=== PATIENT | female | born 1950 | race Caucasian/White ===

== ENCOUNTER 2020-08-29 10:00 | Outpatient (REF) | payer MEDICARE, BC, SELFPAY ==
--- NOTE | 2020-08-29 | US_ITS ---
EXAMINATION: US RETROPERITONEAL LIMITED (RENAL ONLY) CLINICAL INFORMATION: Renal stone. COMPARISON: KUBs dated 02/22/2020 and 02/10/2020. CT abdomen and pelvis with contrast dated 01/12/2020. MRI abdomen without contrast dated 02/27/2008. Ultrasound abdomen complete dated 02/06/2008. TECHNIQUE: Real-time imaging of the kidneys. FINDINGS: RIGHT KIDNEY: Surgically absent. LEFT KIDNEY: 13.1 x 6.2 x 6.1 cm (SAG x AP x TRV). The kidney is normal in size, contour, and echogenicity. Renal cortical thickness is normal. No hydronephrosis. Midpole cyst with tiny thin internal septation measures 1.8 x 2.5 x 2.0 cm. Upper pole cyst is simple and measures 2.7 x 4.0 x 4.2 cm. Echogenic focus adjacent to one of the cysts measures 0.2 x 0.4 x 0.4 cm. US/US renal BI IMPRESSION: 1. Right nephrectomy. No suspicious soft tissue masses at the nephrectomy bed. 2. Multiple left renal cysts. There is an echogenic focus at the border of the larger of the 2 cysts which may represent a nonobstructing renal calculus versus wall calcification of the cyst. Continued sonographic surveillance is recommended. No suspicious vascular/solid regions are seen otherwise associated with the cyst.
== END 2020-08-29 10:01 | disposition home or self-care (01) ==
LOC: HO.US 10:00
PROVIDERS: PCP Family Medicine; Visit Provider Urology
DX: N20.0 Calculus of kidney (principal)
CPT/HCPCS: 76775

== ENCOUNTER 2020-09-19 08:03 | Outpatient (REF) | payer MEDICARE, BC, SELFPAY ==
[2020-09-19 12:04] LABS: Estimated Average Glucose 131 mg/dL; Hemoglobin A1c % 6.2 %
[2020-09-19 12:19] LABS: TSH reflex Free T4 0.96 mIU/mL (0.32-4.0)
[2020-09-19 12:29] LABS: Creatinine Urine 73.99 mg/dL; Microalbum/Creatinine Ratio Ur 14.8 ug/mg cr
[2020-09-19 12:32] LABS: Alanine Aminotransferase 31 U/L (0-31); Albumin Level 4.2 g/dL (3.5-5.0); Alkaline Phosphatase 105 U/L (39-117); Anion Gap 13 (12-20); Aspartate Amino Transferase 17 U/L (5-31); Bilirubin Total 0.7 mg/dL (0.0-1.0); Blood Urea Nitrogen 14 mg/dL (9-16); Calcium 9.6 mg/dL (8.4-10.2); Carbon Dioxide 27 mmol/L (22-29); Chloride 106 mmol/L (96-108); Cholesterol 214 mg/dL; Estimated Glomerular Filt Rate > 60; Glucose Fasting 123 mg/dL (60-99); HDL Cholesterol 59 mg/dL; LDL Cholesterol Calculated 125 mg/dl; Potassium 4.4 mmol/l (3.3-5.1); Sodium 142 mmol/L (135-145); Triglycerides 151 mg/dL
== END 2020-09-19 08:04 | disposition home or self-care (01) ==
LOC: HO.WFDLDS 08:03
PROVIDERS: Visit Provider Family Medicine
DX: E11.9 Type 2 diabetes mellitus without complications (principal); I10 Essential (primary) hypertension; E78.5 Hyperlipidemia, unspecified; Z00.00 Encounter for general adult medical examination without abnormal findings
CPT/HCPCS: 80053; 80061; 82043; 83036; 84443

== ENCOUNTER → 2020-11-08 13:21 | Outpatient (BNVA) | payer MEDICARE, BC, SELFPAY | PROVIDERS: PCP Family Medicine; Visit Provider Internal Medicine Pulmonary Disease | DX: K21.9 Gastro-esophageal reflux disease without esophagitis (principal); J45.909 Unspecified asthma, uncomplicated; R05 Cough | CPT/HCPCS: 99202 ==

== ENCOUNTER → 2020-11-22 13:28 | Outpatient (BNVA) | payer MEDICARE, BC, SELFPAY | PROVIDERS: PCP Family Medicine; Visit Provider Internal Medicine Pulmonary Disease | DX: J45.909 Unspecified asthma, uncomplicated (principal); R05 Cough; K21.9 Gastro-esophageal reflux disease without esophagitis | CPT/HCPCS: Q3014 ==

== ENCOUNTER 2020-12-01 08:09 | Outpatient (REF) | payer MEDICARE, BC, SELFPAY ==
--- NOTE | ~2020-12-01 | XR_ITS ---
EXAMINATION: XR CHEST CLINICAL INFORMATION: Cough COMPARISON: Chest radiographs 01/12/2020, 09/11/2019 TECHNIQUE: 2 views of the chest were obtained. FINDINGS: The lungs are clear. There is no airspace consolidation or groundglass opacity. The heart is normal in size. The hilar and mediastinal contours are normal. Vascularity is unremarkable. The costophrenic sulci are clear. Bony structures are unremarkable. There are surgical clips right upper abdomen likely from prior cholecystectomy. XR/XR chest 2V IMPRESSION: Unremarkable examination.
== END 2020-12-01 08:10 | disposition home or self-care (01) ==
LOC: HO.XRAY 08:09
PROVIDERS: PCP Family Medicine; Visit Provider Internal Medicine Pulmonary Disease
DX: R05 Cough (principal)
CPT/HCPCS: 71046

== ENCOUNTER → 2020-12-21 13:28 | Outpatient (BNVA) | payer MEDICARE, BC, SELFPAY | PROVIDERS: PCP Family Medicine; Visit Provider Internal Medicine Pulmonary Disease | DX: J45.909 Unspecified asthma, uncomplicated (principal); K21.9 Gastro-esophageal reflux disease without esophagitis | CPT/HCPCS: 99212 ==

== ENCOUNTER 2021-01-10 07:54 | Outpatient (REF) | payer MEDICARE, BC, SELFPAY ==
--- NOTE | ~2021-01-10 | MM_ITS ---
EXAMINATION: MM SCREENING DIGITAL BREAST TOMOSYNTHESIS, BILATERAL CLINICAL INFORMATION: Screening. Asymptomatic. The lifetime risk of breast cancer based on the Tyrer-Cuzick Model is 3%. COMPARISON: Mammography: 07/20/2019, 04/10/2018, 02/23/2017 TECHNIQUE: Digital breast tomosynthesis is performed in both the craniocaudal and mediolateral oblique views along with computer-aided detection (CAD). Synthesized 2D images are generated from the tomosynthesis. FINDINGS: There are scattered areas of fibroglandular density (ACR BI-RADS breast composition Category b). There are no significant masses, abnormal calcifications, or other abnormalities. Parenchymal pattern is similar to prior studies. The axilla and skin contours are unremarkable. MM/MM tomosynthesis screening BI IMPRESSION: No mammographic evidence of malignancy. ASSESSMENT: BI-RADS 1: Negative RECOMMENDATION: Routine annual mammography screening. This patient's information was entered into a reminder system with a target due date for their next mammogram.
== END 2021-01-10 07:55 | disposition home or self-care (01) ==
LOC: HO.MAMMO 07:54
PROVIDERS: Visit Provider Family Medicine
DX: Z12.31 Encounter for screening mammogram for malignant neoplasm of breast (principal)
CPT/HCPCS: 77063; 77067

== ENCOUNTER 2021-06-19 07:39 | Outpatient (REF) | payer MEDICARE, BC, SELFPAY ==
[2021-06-19 11:07] LABS: Cholesterol 189 mg/dL; HDL Cholesterol 63 mg/dL; LDL Cholesterol Calculated 105 mg/dl; Triglycerides 107 mg/dL
== END 2021-06-19 07:40 | disposition home or self-care (01) ==
LOC: HO.WFDLDS 07:39
PROVIDERS: Visit Provider Family Medicine
DX: E78.5 Hyperlipidemia, unspecified (principal)
CPT/HCPCS: 36415; 80061

== ENCOUNTER 2021-06-20 13:08 | Outpatient (REF) | payer MEDICARE, BC, SELFPAY ==
[2021-06-20 14:22] LABS: Glucose Urine UA NEG (NEG); Leukocyte Esterase Urine 2+ (NEG); Nitrite Urine NEG (NEG); Specific Gravity - Urine 1.025 (1.005-1.025); Urine Blood NEG (NEG); Urine Ketones NEG (NEG); Urine Protein NEG (NEG-TRACE)
[2021-06-20 14:24] LABS: Appearance Urine HAZY; Color Urine YELLOW
[2021-06-20 15:06] LABS: RBC Urine 0-2 /HPF (0)
[2021-06-20 15:07] LABS: Bacteria Urine TRACE /LPF; Mucus Urine 1+ /LPF; Squamous Epithelial Cell Urine 2+ /LPF
== END 2021-06-20 13:09 | disposition home or self-care (01) ==
LOC: HO.LAB 13:08
PROVIDERS: PCP Family Medicine; Visit Provider Urology
DX: N20.0 Calculus of kidney (principal)
CPT/HCPCS: 81001; 87086

== ENCOUNTER 2021-07-17 14:00 | Outpatient (REF) | payer MEDICARE, BC, SELFPAY | END 2021-07-17 14:01 | disposition home or self-care (01) | LOC: HO.LAB 14:00 | PROVIDERS: PCP Family Medicine | DX: N20.0 Calculus of kidney (principal); N39.0 Urinary tract infection, site not specified | CPT/HCPCS: 87086; 99212 ==

== ENCOUNTER → 2021-07-26 11:12 | Outpatient (BNVA) | payer MEDICARE, BC, SELFPAY | PROVIDERS: PCP Family Medicine; Visit Provider Internal Medicine Pulmonary Disease | DX: J45.909 Unspecified asthma, uncomplicated (principal); K21.9 Gastro-esophageal reflux disease without esophagitis | CPT/HCPCS: 99212 ==

== ENCOUNTER 2021-10-10 07:04 | Outpatient (REF) | payer MEDICARE, BC, SELFPAY ==
[2021-10-10 11:57] LABS: Appearance Urine HAZY; Color Urine YELLOW; Glucose Urine UA NEG (NEG); Leukocyte Esterase Urine 1+ (NEG); Nitrite Urine NEG (NEG); PH 5.5 (5.0-8.0); Specific Gravity - Urine 1.025 (1.005-1.025); Urine Blood NEG (NEG); Urine Ketones NEG (NEG); Urine Protein NEG (NEG-TRACE)
[2021-10-10 12:15] LABS: Alanine Aminotransferase 21 U/L (0-31); Alkaline Phosphatase 124 U/L (39-117); Anion Gap 12 (12-20); Aspartate Amino Transferase 15 U/L (5-31); Bilirubin Total 0.5 mg/dL (0.0-1.0); Blood Urea Nitrogen 15 mg/dL (9-16); Calcium 9.9 mg/dL (8.4-10.2); Carbon Dioxide 26 mmol/L (22-29); Chloride 109 mmol/L (96-108); Cholesterol 208 mg/dL; Estimated Glomerular Filt Rate > 60; Glucose Fasting 129 mg/dL (60-99); HDL Cholesterol 56 mg/dL; LDL Cholesterol Calculated 126 mg/dl; Potassium 4.4 mmol/L (3.3-5.1); Sodium 143 mmol/L (135-145); Total Protein 6.5 g/dL (6.5-8.0); Triglycerides 132 mg/dL
[2021-10-10 12:16] LABS: Creatinine Urine 103.17 mg/dL; Microalbum/Creatinine Ratio Ur 14.5 ug/mg cr
[2021-10-10 15:00] LABS: Bacteria Urine 1+ /LPF; Mucus Urine 1+ /LPF; RBC Urine 0-2 /HPF (0); Squamous Epithelial Cell Urine 2+ /LPF
== END 2021-10-10 07:05 | disposition home or self-care (01) ==
LOC: HO.WFDLDS 07:04
PROVIDERS: Visit Provider Family Medicine
DX: Z00.00 Encounter for general adult medical examination without abnormal findings (principal); I10 Essential (primary) hypertension
CPT/HCPCS: 36415; 80053; 80061; 81001; 81003; 82043; 84443

== ENCOUNTER → 2021-10-25 10:01 | Outpatient (BNVA) | payer MEDICARE, BC, SELFPAY | PROVIDERS: PCP Internal Medicine Endocrinology, Diabetes & Metabolism | DX: N39.0 Urinary tract infection, site not specified (principal) | CPT/HCPCS: 99212 ==

== ENCOUNTER 2021-11-23 14:07 | Outpatient (REF) | payer MEDICARE, BC, SELFPAY ==
--- NOTE | ~2021-11-23 | US_ITS ---
EXAMINATION: US RETROPERITONEAL LIMITED (RENAL ONLY) CLINICAL INFORMATION: Calculus of kidney. COMPARISON: Renal ultrasound 08/29/2020. XR abdomen KUB 02/22/2020 and 02/10/2020. CT abdomen and pelvis 01/12/2020. TECHNIQUE: Real-time imaging of the kidneys. FINDINGS: RIGHT KIDNEY: Surgically absent. Hypoechoic structure in the renal fossa measures up to 2 cm. This is adjacent to the liver and may correspond to the previously seen right adrenal adenoma. LEFT KIDNEY: 13.2 x 5.9 x 6.6 cm (SAG x AP x TRV). The kidney is normal in size, contour, and echogenicity. Renal cortical thickness is normal. No hydronephrosis. Multiple calcifications are seen throughout the kidney. Midpole cyst measures 2.6 cm. This has a thin internal septation. This is likely a Bosniak 2. There is an adjacent simple cyst which is exophytic measuring 4.8 cm. No follow-up imaging recommended. There are 3 mid pole calculi measuring 0.5 cm. US/US renal BI IMPRESSION: There are 3 left midpole nonobstructing 0.5 cm renal calculi identified. Left renal cysts as detailed above.
== END 2021-11-23 14:08 | disposition home or self-care (01) ==
LOC: HO.US 14:07
PROVIDERS: PCP Family Medicine
DX: N20.0 Calculus of kidney (principal)
CPT/HCPCS: 76775

== ENCOUNTER → 2022-01-23 09:57 | Outpatient (BNVA) | payer MEDICARE, BC, SELFPAY | PROVIDERS: PCP Family Medicine; Visit Provider Internal Medicine Pulmonary Disease | DX: J45.909 Unspecified asthma, uncomplicated (principal); G47.33 Obstructive sleep apnea (adult) (pediatric); R05.9 Cough, unspecified; K21.9 Gastro-esophageal reflux disease without esophagitis | CPT/HCPCS: 99212 ==

== ENCOUNTER → 2022-01-30 08:32 | Outpatient (BNVA) | payer MEDICARE, BC, SELFPAY | PROVIDERS: PCP Family Medicine | DX: Z13.89 Encounter for screening for other disorder (principal) | CPT/HCPCS: Q3014 ==

== ENCOUNTER 2022-02-12 07:23 | Outpatient (REF) | payer MEDICARE, BC, SELFPAY ==
--- NOTE | ~2022-02-12 | MM_ITS ---
EXAMINATION: MM SCREENING DIGITAL BREAST TOMOSYNTHESIS, BILATERAL CLINICAL INFORMATION: Screening. Asymptomatic. The lifetime risk of breast cancer based on the Tyrer-Cuzick Model is 3%. COMPARISON: Mammography: 01/10/2021, 07/20/2019, 04/10/2018 TECHNIQUE: Digital breast tomosynthesis is performed in both the craniocaudal and mediolateral oblique views along with computer-aided detection (CAD). Synthesized 2D images are generated from the tomosynthesis. FINDINGS: There are scattered areas of fibroglandular density (ACR BI-RADS breast composition Category b). There are no significant masses, abnormal calcifications, or other abnormalities. Parenchymal pattern is similar to prior studies. No developing density. No architectural abnormality. No significant change. MM/MM tomosynthesis screening BI IMPRESSION: No mammographic evidence of malignancy. ASSESSMENT: BI-RADS 1: Negative RECOMMENDATION: Routine annual mammography screening. This patient's information was entered into a reminder system with a target due date for their next mammogram.
== END 2022-02-12 07:24 | disposition home or self-care (01) ==
LOC: HO.MAMMO 07:23
PROVIDERS: Visit Provider Family Medicine
DX: Z12.31 Encounter for screening mammogram for malignant neoplasm of breast (principal)
CPT/HCPCS: 77063; 77067

== ENCOUNTER 2022-02-13 08:32 | Outpatient (REF) | payer MEDICARE, BC, SELFPAY ==
[2022-02-13 11:57] LABS: Appearance Urine HAZY; Color Urine YELLOW; Glucose Urine UA NEG (NEG); Leukocyte Esterase Urine 2+ (NEG); Nitrite Urine NEG (NEG); PH 6.5 (5.0-8.0); Specific Gravity - Urine 1.015 (1.005-1.025); Urine Blood NEG (NEG); Urine Ketones NEG (NEG); Urine Protein NEG (NEG-TRACE)
[2022-02-13 12:08] LABS: Alanine Aminotransferase 25 U/L (0-31); Alkaline Phosphatase 128 U/L (39-117); Anion Gap 9 (12-20); Aspartate Amino Transferase 18 U/L (5-31); Bilirubin Total 0.5 mg/dL (0.0-1.0); Blood Urea Nitrogen 16 mg/dL (9-16); Calcium 9.9 mg/dL (8.4-10.2); Carbon Dioxide 29 mmol/L (22-29); Chloride 108 mmol/L (96-108); Cholesterol 197 mg/dL; Estimated Glomerular Filt Rate > 60; Glucose Fasting 151 mg/dL (60-99); HDL Cholesterol 60 mg/dL; LDL Cholesterol Calculated 112 mg/dl; Potassium 4.4 mmol/L (3.3-5.1); Sodium 142 mmol/L (135-145); Total Protein 6.8 g/dL (6.5-8.0); Triglycerides 125 mg/dL
[2022-02-13 12:14] LABS: Estimated Average Glucose 137 mg/dL; Hemoglobin A1c % 6.4 %
[2022-02-13 12:26] LABS: Creatinine Urine 42.24 mg/dL; Microalbum/Creatinine Ratio Ur 44.9 ug/mg cr
[2022-02-13 12:33] LABS: TSH reflex Free T4 1.33 uIU/mL (0.32-4.0)
[2022-02-13 13:17] LABS: Bacteria Urine 4+ /LPF; Squamous Epithelial Cell Urine 1+ /LPF
[2022-02-13 13:18] LABS: RBC Urine 0 /HPF (0); WBC Clumps Urine NOTED
== END 2022-02-13 08:33 | disposition home or self-care (01) ==
LOC: HO.WFDLDS 08:32
PROVIDERS: Visit Provider Family Medicine
DX: Z00.00 Encounter for general adult medical examination without abnormal findings (principal); I10 Essential (primary) hypertension; R73.01 Impaired fasting glucose
CPT/HCPCS: 36415; 80053; 80061; 81001; 81003; 82043; 83036; 84443

== ENCOUNTER → 2022-02-15 09:51 | Outpatient (REF) | payer MEDICARE, BC, SELFPAY | LOC: HO.SL 09:51 | PROVIDERS: PCP Family Medicine; Visit Provider Internal Medicine Pulmonary Disease | DX: G47.33 Obstructive sleep apnea (adult) (pediatric) (principal) | CPT/HCPCS: 95806 ==

== ENCOUNTER 2022-05-11 07:05 | Outpatient (REF) | payer MEDICARE, BC, SELFPAY ==
[2022-05-11 12:10] LABS: Appearance Urine HAZY; Color Urine YELLOW; Glucose Urine UA NEG (NEG); Leukocyte Esterase Urine 3+ (NEG); Nitrite Urine POS (NEG); Urine Blood TRACE (NEG); Urine Ketones NEG (NEG); Urine Protein NEG (NEG-TRACE)
[2022-05-11 12:27] LABS: Cholesterol 188 mg/dL; HDL Cholesterol 52 mg/dL; LDL Cholesterol Calculated 109 mg/dl; Triglycerides 137 mg/dL
[2022-05-11 13:10] LABS: Bacteria Urine 4+ /LPF; RBC Urine 0-2 /HPF (0); Renal Epithelial Cells Urine 1+ /LPF; Squamous Epithelial Cell Urine 1+ /LPF; WBC Urine 30-49 /HPF (0-4)
== END 2022-05-11 07:06 | disposition home or self-care (01) ==
LOC: HO.WFDLDS 07:05
PROVIDERS: Visit Provider Family Medicine
DX: E78.5 Hyperlipidemia, unspecified (principal)
CPT/HCPCS: 36415; 80061; 81001; 81003

== ENCOUNTER 2022-05-31 11:16 | Outpatient (REF) | payer MEDICARE, BC, SELFPAY ==
[2022-05-31 12:43] LABS: Appearance Urine CLEAR; Color Urine YELLOW; Glucose Urine UA NEG (NEG); Leukocyte Esterase Urine 1+ (NEG); Nitrite Urine NEG (NEG); Specific Gravity - Urine 1.025 (1.005-1.025); Urine Blood NEG (NEG); Urine Ketones NEG (NEG); Urine Protein NEG (NEG-TRACE)
[2022-05-31 12:56] LABS: Squamous Epithelial Cell Urine 2+ /LPF
[2022-05-31 12:57] LABS: Bacteria Urine 1+ /LPF; RBC Urine 0 /HPF (0); WBC Urine 0-2 /HPF (0-4)
== END 2022-05-31 11:17 | disposition home or self-care (01) ==
LOC: HO.LAB 11:16
PROVIDERS: PCP Family Medicine; Visit Provider Urology
DX: N39.0 Urinary tract infection, site not specified (principal)
CPT/HCPCS: 81001; 87086

== ENCOUNTER 2022-07-09 12:43 | Outpatient (REF) | payer MEDICARE, BC, SELFPAY ==
--- NOTE | ~2022-07-09 | US_ITS ---
EXAMINATION: US RETROPERITONEAL LIMITED (RENAL ONLY) CLINICAL INFORMATION: Cyst of kidney, acquired. COMPARISON: Renal ultrasound 11/23/2021 and 08/29/2020. X-ray KUB 02/22/2020 and 02/10/2020. CT abdomen and pelvis 01/12/2020. TECHNIQUE: Real-time imaging of the kidneys. FINDINGS: RIGHT KIDNEY: Surgically absent. There is a hypoechoic structure in the right renal fossa, likely scar measuring 1.2 x 1.2 x 1.6 cm. LEFT KIDNEY: 13.0 x 6.7 x 7.8 cm (SAG x AP x TRV). The kidney is normal in size, contour, and echogenicity. Renal cortical thickness is normal. No hydronephrosis. There is an anechoic cyst mid pole with septation measuring 2.7 x 2.6 x 2.1 cm. There is an anechoic cyst mid/lower pole measuring 4.9 x 3.7 x 4.6 cm and a cyst in the lower pole measuring 1.0 x 0.7 x 1.0 cm. There are echogenic stones in the mid pole measuring 0.5 x 0.3 x 0.5 cm and 0.3 x 0.2 x 0.4 cm. No caliectasis seen. US/US renal BI IMPRESSION: There are 2 echogenic nonobstructive stones in mid pole of left kidney, simple and complex cyst with septation lower and mid pole left kidney respectively. The right kidney has been surgically removed with a small likely scar measuring 1.6 cm.
== END 2022-07-09 12:44 | disposition home or self-care (01) ==
LOC: HO.US 12:43
DX: N28.1 Cyst of kidney, acquired (principal); N20.0 Calculus of kidney
CPT/HCPCS: 76775

== ENCOUNTER → 2022-07-26 08:44 | Outpatient (BNVA) | payer MEDICARE, BC, SELFPAY | PROVIDERS: PCP Family Medicine; Visit Provider Internal Medicine Pulmonary Disease | DX: J45.909 Unspecified asthma, uncomplicated (principal); K21.9 Gastro-esophageal reflux disease without esophagitis; G47.33 Obstructive sleep apnea (adult) (pediatric); R05.9 Cough, unspecified | CPT/HCPCS: 99212 ==

== ENCOUNTER → 2022-08-15 11:15 | Outpatient (BNVA) | payer MEDICARE, BC, SELFPAY | PROVIDERS: PCP Family Medicine; Visit Provider Urology | DX: N20.0 Calculus of kidney (principal); N28.1 Cyst of kidney, acquired; Z90.5 Acquired absence of kidney | CPT/HCPCS: 51798; 99212 ==

== ENCOUNTER 2022-08-22 11:04 | Outpatient (REF) | payer MEDICARE, BC, SELFPAY ==
--- NOTE | ~2022-08-22 | CT_ITS ---
EXAMINATION: CT ABDOMEN AND PELVIS WITHOUT CONTRAST CLINICAL INFORMATION: Calculus of kidney. COMPARISON: 07/09/2022 ultrasound abdomen. TECHNIQUE: Multidetector volumetric imaging was performed from the superior aspect of the liver through the pubic symphysis. Sagittal and coronal reformatted images were obtained on the technologist's workstation. This CT examination was performed using dose optimization techniques as appropriate, variously including the following: *Automated exposure control *Adjustment of mA and/or kV according to patient size (this includes techniques or standardized protocols for targeted exams where dose is matched to indication/reason for exam; i.e. extremities or head) *Use of iterative reconstruction technique DLP: 445 mGy-cm FINDINGS: LUNG BASES: Minimal atelectatic changes seen in the right middle lobe. The lung bases are clear. The heart size is normal. LIVER, GALLBLADDER, AND BILIARY TREE: The liver is normal in size, shape, and attenuation. No focal hepatic lesion or biliary ductal dilatation is present. The gallbladder has been surgically removed. PANCREAS: Unremarkable. SPLEEN: Unremarkable. ADRENAL GLANDS: There are bilateral adrenal lesions. The left adrenal lesion measures 1.22 x 0.9 cm and the right adrenal lesion measures 1.8 x 1.3 cm both measuring minus Hounsfield units. KIDNEYS AND URETERS: The left kidney is normal in size, shape, and attenuation. No hydronephrosis, hydroureter, or calculi seen. No perinephric stranding. There is 4.6 x 4.6 cm exophytic cyst with peripheral wall calcification suggestive of complex cyst in midpole left kidney. The right kidney is unremarkable. BLADDER: Unremarkable. GASTROINTESTINAL TRACT: There is diffuse colonic diverticulosis without diverticulitis. There is scattered stool and gas seen in colon without distention. Appendix is normal caliber. The small bowel loops are normal caliber. ABDOMINAL WALL: A small umbilical hernia containing fat is noted. LYMPH NODES: Normal. VASCULAR: No evidence of aneurysm. There is mild atherosclerotic calcification of abdominal aorta. PELVIC VISCERA: Unremarkable. OSSEOUS STRUCTURES: No aggressive lytic or sclerotic process seen. CT/CT abdomen pelvis wo IV con IMPRESSION: 1. No radiopaque urolith or hydroureteronephrosis. 2. Complex cyst midpole left kidney. 3. Diffuse colonic diverticulosis without diverticulitis. 4. 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 5. The left adrenal lesion measures 1.22 x 0.9 cm and the right adrenal lesion measures 1.8 x 1.3 cm both measuring minus Hounsfield units. Fleischner guidelines were followed.
== END 2022-08-22 11:05 | disposition home or self-care (01) ==
LOC: HO.CT 11:04
PROVIDERS: PCP Family Medicine; Visit Provider Urology
DX: N20.0 Calculus of kidney (principal); N28.1 Cyst of kidney, acquired; Z95.0 Presence of cardiac pacemaker
CPT/HCPCS: 74176

== ENCOUNTER → 2022-09-10 09:37 | Outpatient (BNVA) | payer MEDICARE, BC, SELFPAY | PROVIDERS: PCP Family Medicine; Visit Provider Urology | DX: N28.1 Cyst of kidney, acquired (principal); Z90.5 Acquired absence of kidney; Z87.442 Personal history of urinary calculi | CPT/HCPCS: 51798; 99212 ==

== ENCOUNTER 2022-11-28 07:19 | Outpatient (REF) | payer MEDICARE, BC, SELFPAY ==
[2022-11-28 12:01] LABS: Alanine Aminotransferase 27 U/L (0-31); Albumin Level 4.3 g/dL (3.5-5.0); Alkaline Phosphatase 96 U/L (39-117); Anion Gap 16 (12-20); Aspartate Amino Transferase 19 U/L (5-31); Bilirubin Total 0.8 mg/dL (0.0-1.0); Blood Urea Nitrogen 16 mg/dL (9-16); Calcium 9.8 mg/dL (8.4-10.2); Carbon Dioxide 20 mmol/L (22-29); Chloride 110 mmol/L (96-108); Cholesterol 170 mg/dL; Estimated Glomerular Filt Rate > 60; Glucose Random 125 mg/dL (60-115); HDL Cholesterol 45 mg/dL; LDL Cholesterol Calculated 106 mg/dl; Potassium 4.2 mmol/L (3.3-5.1); Sodium 142 mmol/L (135-145); Total Protein 6.8 g/dL (6.5-8.0); Triglycerides 97 mg/dL
== END 2022-11-28 07:20 | disposition home or self-care (01) ==
LOC: HO.WFDLDS 07:19
PROVIDERS: Visit Provider Family Medicine
DX: Z00.00 Encounter for general adult medical examination without abnormal findings (principal); E78.5 Hyperlipidemia, unspecified
CPT/HCPCS: 36415; 80053; 80061

== ENCOUNTER → 2023-01-24 09:31 | Outpatient (BNVA) | payer MEDICARE, BC, SELFPAY | PROVIDERS: PCP Family Medicine; Visit Provider Urology | DX: N28.1 Cyst of kidney, acquired (principal); Z90.5 Acquired absence of kidney; Z87.442 Personal history of urinary calculi | CPT/HCPCS: 51798; 99212 ==

== ENCOUNTER 2023-02-21 07:09 | Outpatient (REF) | payer MEDICARE, BC, SELFPAY ==
[2023-02-21 11:12] LABS: MANUAL DIFF FLAG NO
[2023-02-21 11:24] LABS: Appearance Urine Clear; Color Urine Yellow; Glucose Urine UA Negative (Negative); Leukocyte Esterase Urine Moderate (2+) (Negative); Nitrite Urine Positive (Negative); UMIC TRIGGER UA YES; Urine Blood Negative (Negative); Urine Ketones Negative (Negative); Urine Protein Negative (Neg-Trace)
[2023-02-21 11:28] LABS: Bacteria Urine 4+ (None Seen); Hyaline Casts Urine 0-2 /LPF (0-2); RBC Urine 0-2 /HPF (0-2)
[2023-02-21 11:36] LABS: Basophils Percent Auto 0.7 % (0-2); Eosinophils Absolute Auto 0.1 X10*3/uL (0.0-0.4); Eosinophils Percent Auto 2.6 % (0-4); Hematocrit 43.6 % (37.0-47.0); Hemoglobin 14.5 g/dl (12.0-16.0); Imm Gran Abs Auto 0.01 X10*3/uL (0.00-0.03); Imm Gran Pct Auto 0.2 % (0.0-0.4); Lymphocytes Percent Auto 17.9 % (20-40); Mean Corpuscular HGB Conc 33.3 g/dl (31.0-35.0); Mean Corpuscular Hemoglobin 29.5 pg (27.0-33.0); Mean Corpuscular Volume 88.6 fL (80.0-98.0); Mean Platelet Volume 11.2 fL (9.4-12.3); Monocytes Absolute Auto 0.6 X10*3/uL (0.1-1.2); Monocytes Percent Auto 10.1 % (2-11); Neutrophils Absolute Auto 3.7 x10*3/uL (2.0-8.3); Neutrophils Percent Auto 68.5 % (45-73); Platelet Count 278 X10*3/uL (160-400); Red Blood Count 4.92 X10*6/uL (4.20-5.50); Red Cell Distribution Width 12.7 % (11.0-16.0); White Blood Count 5.4 X10*3/uL (4.8-10.8)
[2023-02-21 12:15] LABS: Creatinine Urine 57.51 mg/dL; Microalbum/Creatinine Ratio Ur 19.1 ug/mg cr
[2023-02-21 12:28] LABS: Alanine Aminotransferase 47 U/L (0-31); Albumin Level 4.1 g/dL (3.5-5.0); Alkaline Phosphatase 122 U/L (39-117); Anion Gap 15 (12-20); Aspartate Amino Transferase 33 U/L (5-31); Bilirubin Total 0.8 mg/dL (0.0-1.0); Blood Urea Nitrogen 15 mg/dL (9-16); Calcium 9.5 mg/dL (8.4-10.2); Carbon Dioxide 22 mmol/L (22-29); Chloride 110 mmol/L (96-108); Estimated Glomerular Filt Rate > 60; Glucose Fasting 159 mg/dL (60-99); Sodium 143 mmol/L (135-145); Total Protein 6.5 g/dL (6.5-8.0)
[2023-02-21 12:55] LABS: TSH reflex Free T4 0.82 uIU/mL (0.32-4.0)
== END 2023-02-21 07:10 | disposition home or self-care (01) ==
LOC: HO.WFDLDS 07:09
PROVIDERS: Visit Provider Family Medicine
DX: Z00.00 Encounter for general adult medical examination without abnormal findings (principal); I10 Essential (primary) hypertension
CPT/HCPCS: 36415; 80053; 81001; 82043; 84443; 85025

== ENCOUNTER 2023-02-23 08:42 | Outpatient (REF) | payer MEDICARE, BC, SELFPAY ==
--- NOTE | ~2023-02-23 | MM_ITS ---
EXAMINATION: MM SCREENING DIGITAL BREAST TOMOSYNTHESIS, BILATERAL CLINICAL INFORMATION: Screening. Asymptomatic. The lifetime risk of breast cancer based on the Tyrer-Cuzick Model is 3%. COMPARISON: Multiple prior mammography exams, most recent 02/12/2022. TECHNIQUE: Digital breast tomosynthesis is performed in both the craniocaudal and mediolateral oblique views along with computer-aided detection (CAD). Synthesized 2D images are generated from the tomosynthesis. FINDINGS: There are scattered areas of fibroglandular density (ACR BI-RADS breast composition Category b). There are no significant masses, abnormal calcifications, or other abnormalities. No architectural abnormality or developing density or significant change from prior studies. The axilla and skin contours are unremarkable. No significant changes from prior exams. MM/MM tomosynthesis screening BI IMPRESSION: No mammographic evidence of malignancy. ASSESSMENT: BI-RADS 1: Negative RECOMMENDATION: Routine annual mammography screening. This patient's information was entered into a reminder system with a target due date for their next mammogram.
== END 2023-02-23 08:43 | disposition home or self-care (01) ==
LOC: HO.MAMMO 08:42
PROVIDERS: PCP Family Medicine; Visit Provider Family Medicine
DX: Z12.31 Encounter for screening mammogram for malignant neoplasm of breast (principal)
CPT/HCPCS: 77063; 77067

== ENCOUNTER → 2023-02-28 12:59 | Outpatient (BNVA) | payer MEDICARE, BC, SELFPAY | PROVIDERS: PCP Family Medicine; Visit Provider Internal Medicine Pulmonary Disease | DX: J45.909 Unspecified asthma, uncomplicated (principal); G47.33 Obstructive sleep apnea (adult) (pediatric); K21.9 Gastro-esophageal reflux disease without esophagitis; Z87.891 Personal history of nicotine dependence; Z99.89 Dependence on other enabling machines and devices | CPT/HCPCS: 99212 ==

== ENCOUNTER 2023-03-25 11:54 | Outpatient (REF) | payer MEDICARE, BC, SELFPAY ==
[2023-03-25 12:42] VITALS: BMI 28.0
[2023-03-25 12:43] VITALS: BP 147/77; PULSE 98; RESP 16; TEMP 36.7; O2SAT 93
== END 2023-03-25 11:55 | disposition home or self-care (01) ==
LOC: HO.MS 11:54
PROVIDERS: PCP Family Medicine; Visit Provider Ophthalmology
PROC: (CPT 66821; principal; 2023-03-25 15:50)
DX: H26.491 Other secondary cataract, right eye (principal)
CPT/HCPCS: 66821

== ENCOUNTER 2023-05-31 08:52 | Outpatient (AMB) | payer MEDICARE, BC, SELFPAY ==
--- NOTE | 2023-05-31 08:55 | MHC.PC.OV ---
Vital Signs 05/31/23 08:58 Height 5 ft 2 in Weight 152 lb 4 oz BMI 27.8 BP 142/80 H Blood Pressure Location Rt brachial Position Sitting Respiration 13 Pulse 89 Pulse Source Pulse Oximeter Temp 97.9 F Temp Source Temporal Artery Scan Pulse Oximetry (%) 96 Oxygen Delivery Method Room Air Intake Visit Reasons: Extended exam follow up labs Intake Note: Patient is here today for her annual physical and to follow up with labs drawn on 02/21/23. 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 Accompanied by: Self / Same As Patient Allergies No Known Allergies [No Known Allergies*] Allergy (Verified 05/31/23 08:58) Medication List - Last Reconciled 05/31/23 by Jose Luis Roe MD albuterol sulfate 90 mcg/actuation 2 puffs PO Q6H PRN 3 months atorvastatin 40 mg PO DAILY 90 days metformin 500 mg PO DAILY montelukast 10 mg PO DAILY 3 months nifedipine ER 90 mg PO DAILY 3 months nifedipine ER 30 mg PO DAILY 90 days omeprazole 40 mg (2 x 20 mg) PO DAILY salmeterol (Serevent Diskus) 2 inhalations inhalation BID Tobacco use date assessed: 12/04/22 Fall risk assessment: No Falls in past year Last assessed Fall Risk: 05/31/23 Dental Screening Dental Screen Date: 05/31/23 Did you have a dental visit in the last 12 months?: Yes Did you have a dental problem in the last 6 months where you did not have access to dental care?: No Was dental information given to patient?: Patient has dentist HPI Extended exam follow up labs HPI Details 73 y/o female presents for an extended exam with f/u labs and health maintenance. Some labs were drawn 02/21/23. Reviewe dlabs with pt. Elevated liver enzymes - AST 33 and ALT 47. Last A1c 12/04/22 6.0%. A1c today 05/31/23 is 6.0%. She is on metformin 500mg daily. Blood pressure today 142/80. She is on nifedipine. Pt reports hearing changes. She reports she has been eating a healthy diet. She exercises daily. [facility] Medical History Renal calculi Renal cyst S/p nephrectomy UTI (urinary tract infection) Surgical History Hx of cataract surgery S/P cholecystectomy S/P PATRICIA-BSO Family History Father Stroke Cancer Mother Cancer HTN (hypertension) Social History Housing: House Patient Tobacco Use Status: Former Tobacco user e-Cigarette/Vaping Use: Never Used Second Hand Smoke Exposure: No service: No Current occupational status: retired Current occupational exposures/hazards: No Cognitive needs: No Hearing needs: No Vision needs: No Questionnaire MARYSE-7 AMB Questionnaire MARYSE-7 Date MARYSE - 7 assessed: 12/04/22 Source: Developed by Drs. Laith Green, Noelle Garcia, Eder Martin and colleagues, with an educational raj from [employer]. Review of Systems Const Denies chills, Denies fatigue, Denies fever(s), Denies headache(s) and Denies weakness Eyes Denies change in vision ENT Denies dizziness, Denies headache(s), Denies hearing loss, Denies nasal congestion, Denies sinus pain, Denies sinus pressure and Denies sore throat Card Denies chest pain, Denies lightheadedness, Denies dyspnea and Denies other (palpitations) Resp Denies cough, Denies dyspnea and Denies wheezing GI Denies abdominal pain, Denies melena, Denies hematochezia, Denies change in bowel habits, Denies dyspepsia and Denies nausea Denies hematuria and Denies dysuria Musc Denies abnormal gait, Denies myalgias, Denies arthralgias, Denies numbness and Denies tingling Skin/Breast Denies rash, Denies unusual bruising and Denies wounds Neuro Denies abnormal gait, Denies dizziness, Denies headache(s), Denies memory loss, Denies numbness, Denies Sensory deficit (Neuro), Denies tingling and Denies weakness Psych Denies anxiety, Denies depression and Denies memory loss Endo Denies cold intolerance, Denies fatigue, Denies heat intolerance, Denies polydipsia and Denies polyuria Agustín/Lymph Denies easy bleeding and Denies easy bruising Aller/Immun Denies wheezing Physical exam (Primary Care) Vital Signs: Last Vital Signs Temp 97.9 F 05/31/23 08:58 Pulse 89 05/31/23 08:58 Resp 13 05/31/23 08:58 BP 142/80 H 05/31/23 08:58 Pulse Ox 96 05/31/23 08:58 Oxygen Delivery Method Room Air 05/31/23 08:58 BMI result Body Mass Index 27.8 Tobacco/Smoking Status: Tobacco use Status Tobacco use date assessed 12/04/22 05/31/23 08:56 Patient Tobacco Use Status Former Tobacco user 05/31/23 08:56 e-Cigarette/Vaping Use Never Used 05/31/23 08:56 Const General: no acute distress, well developed, alert and awake Nutritional Appearance: well nourished Orientation/consciousness: patient oriented x3 HENMT Head: Yes normocephalic and Yes atraumatic Ears: hearing grossly normal bilaterally and TM's normal bilaterally General nose exam: Normal external nose present and Normal nares present Mouth: Normal oral and palatal mucosa present and moist mucous membranes Teeth and gingiva: dentition normal Throat: Yes posterior oropharynx normal Eyes General: appearance normal, both eyes and all related structures Pupils: Equal, round and reactive pupils present and Pupil accommodation reflex normal EOM: EOMs intact bilaterally Neck Neck: Yes normal visual inspection, Yes no lymphadenopathy and Yes trachea midline Thyroid: Thyroid normal Carotids: no bruits Lymphatic: no lymphadenopathy noted Chest Chest palpation & inspection: normal inspection of the chest Resp Effort & Inspection: normal respiratory effort Auscultation: clear to auscultation bilaterally Cardio Rate: regular rate Rhythm: regular rhythm Heart sounds: S1 normal heart sound present, S2 normal heart sound present, no gallops, no murmurs and no rubs Bruits: no abdominal aortic bruits and no carotid bruits GI Palpation (GI): No Abdominal aortic bruit present, Soft to palpation, nontender, No hepatosplenomegaly present and No Rebound tenderness present Auscultation: normal bowel sounds General: Yes no CVA tenderness Back/Spine/Pelvis Back: no CVA tenderness Cervical Spine: cervical ROM normal and No Cervical spine tenderness Thoracic/Lumbar Spine: thoraco-lumbar ROM normal, No pain with thoraco-lumbar ROM, No thoracic spinal tenderness and No lumbar spinal tenderness Skin Lesions: no lesions Rashes: no rashes Trauma: no lacerations or abrasions Wounds: no wounds Nails: normal Neuro General: patient oriented x3 Cranial nerves: Yes Equal, round and reactive pupils present Cognition (Neuro): normal cognition Gait exam (Neuro): Normal gait present Motor exam (neuro): 5/5 motor strength present throughout Sensory Exam: No Sensory deficit (Neuro) Deep tendon reflexes (DTR's): Right patellar reflex intensity grade: 2+ and Left patellar reflex intensity grade: 2+ Extrem General: Yes normal to inspection and No edema Psych Appearance: grossly normal Affect: normal affect Attitude: cooperative Thought process: Normal thought process present Results AMB Hemoglobin A1c AMB Hemoglobin A1c 6.0 % Last Edit by Imani Preciado on 05/31/23 09:30 Results Reviewed Results Reviewed: Laboratory Last Values Hgb A1c (Clinic) 6.0 % (4.0-6.0) 05/31/23 09:30 Assessment and Plan Assessment & Plan (1) Essential hypertension: Code(s): I10 - Essential (primary) hypertension Plan: Blood pressure has been elevated more often than not when checked recently Goal is less than 140/90 She is on a rather high dose of nifedipine which she has been on prior to seeing me. She has had a cough with lisinopril in the past Will add losartan (2) Change in hearing: Code(s): H91.90 - Unspecified hearing loss, unspecified ear Plan: Refer to audiology (3) Diabetes type 2, controlled: Code(s): E11.9 - Type 2 diabetes mellitus without complications Plan: A1c is again 6.0%. Good control. Goal is less than 7.0% Continue current medication regimen Gets regular eye exams from Dr. Lamas. Up today. (4) Elevated liver enzymes: Code(s): R74.8 - Abnormal levels of other serum enzymes Plan: Mildly elevated liver enzymes at last check in February. Will repeat these. Advised mild weight loss, using Tylenol and alcohol in moderation and not on the same days. Avoiding dehydration. Will follow-up at her next visit (5) Screening for cervical cancer: Code(s): Z12.4 - Encounter for screening for malignant neoplasm of cervix Plan: No longer getting Pap smears (6) Screening for colon cancer: Code(s): Z12.11 - Encounter for screening for malignant neoplasm of colon Plan: Followed by Dr. Loya She is not sure when her last colonoscopy was. 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 She is up-to-date. (8) Screening for osteoporosis: Code(s): Z13.820 - Encounter for screening for osteoporosis Plan: Overdue for screening for osteoporosis Bone density test ordered (9) Adult general medical exam: Code(s): Z00.00 - Encounter for general adult medical examination without abnormal findings Plan: 73-year-old female presents for an extended exam Encouraged healthy diet with active lifestyle and plenty of exercise Orders: Orders Lipid Panel Today Z00.00 - Encounter for general adult medical examination without abnormal findings Comprehensive [place]. Panel Fast Today Z00.00 - Encounter for general adult medical examination without abnormal findings TSH reflex Free T4 Today Z00.00 - Encounter for general adult medical examination without abnormal findings UA and rflx microscopic Today Z00.00 - Encounter for general adult medical examination without abnormal findings Complete Blood Count Auto Diff Today Z00.00 - Encounter for general adult medical examination without abnormal findings Microalbumin, Random (w Creat) Today I10 - Essential (primary) hypertension XR DEXA axial skeleton Today Z91.89 - Other specified personal risk factors, not elsewhere classified Referrals Audiology Referral H91.90 - Unspecified hearing loss, unspecified ear Medications: New losartan 50 mg PO DAILY 90 tabs 2RF 90 days Coding Level of Care Code Est Pt Level 4 (25027) Diagnoses Essential hypertension I10 Change in hearing H91.90 Diabetes type 2, controlled E11.9 Elevated liver enzymes R74.8 Screening for cervical cancer Z12.4 Screening for colon cancer Z12.11 Screening for breast cancer Z12.39 Screening for osteoporosis Z13.820 Adult general medical exam Z00.00
[2023-05-31 08:58] VITALS: BP 142/80; PULSE 89; RESP 13; TEMP 36.6; O2SAT 96; BMI 27.8
== END 2023-05-31 09:42 | disposition home or self-care (01) ==
PROVIDERS: PCP Family Medicine; Visit Provider Family Medicine
DX: I10 Essential (primary) hypertension (principal); H91.90 Unspecified hearing loss, unspecified ear; E11.9 Type 2 diabetes mellitus without complications; R74.8 Abnormal levels of other serum enzymes; Z12.4 Encounter for screening for malignant neoplasm of cervix; Z12.11 Encounter for screening for malignant neoplasm of colon; Z12.39 Encounter for other screening for malignant neoplasm of breast; Z13.820 Encounter for screening for osteoporosis; Z00.00 Encounter for general adult medical examination without abnormal findings
CPT/HCPCS: 99214

== ENCOUNTER 2023-06-13 12:24 | Outpatient (REF) | payer MEDICARE, BC, SELFPAY ==
[2023-06-13 14:03] LABS: Appearance Urine Cloudy; Color Urine Yellow; Glucose Urine UA Negative (Negative); Leukocyte Esterase Urine Moderate (2+) (Negative); Nitrite Urine Positive (Negative); Specific Gravity - Urine 1.015 (1.005-1.025); UMIC TRIGGER UA YES; Urine Blood Negative (Negative); Urine Ketones Negative (Negative); Urine Protein Negative (Neg-Trace)
[2023-06-13 14:07] LABS: Bacteria Urine 4+ (None Seen); Hyaline Casts Urine 0-2 /LPF (0-2); RBC Urine 0-2 /HPF (0-2); WBC Urine 21-50 /HPF (0-5)
== END 2023-06-13 12:25 | disposition home or self-care (01) ==
LOC: HO.LAB 12:24
PROVIDERS: PCP Family Medicine; Visit Provider Urology
DX: N39.0 Urinary tract infection, site not specified (principal)
CPT/HCPCS: 81001; 87086; 87088; 87186

== ENCOUNTER 2023-06-20 07:52 | Outpatient (REF) | payer MEDICARE, BC, SELFPAY ==
[2023-06-20 11:45] LABS: MANUAL DIFF FLAG NO
[2023-06-20 11:51] LABS: Basophils Absolute Auto 0.1 X10*3/uL (0.0-0.2); Basophils Percent Auto 0.8 % (0-2); Eosinophils Absolute Auto 0.2 X10*3/uL (0.0-0.4); Eosinophils Percent Auto 3.2 % (0-4); Hematocrit 44.7 % (37.0-47.0); Hemoglobin 15.1 g/dl (12.0-16.0); Imm Gran Abs Auto 0.02 X10*3/uL (0.00-0.03); Imm Gran Pct Auto 0.3 % (0.0-0.4); Lymphocytes Absolute Auto 1.5 X10*3/uL (1.2-4.9); Lymphocytes Percent Auto 21.8 % (20-40); Mean Corpuscular HGB Conc 33.8 g/dl (31.0-35.0); Mean Corpuscular Hemoglobin 29.8 pg (27.0-33.0); Mean Corpuscular Volume 88.2 fL (80.0-98.0); Mean Platelet Volume 11.2 fL (9.4-12.3); Monocytes Absolute Auto 0.5 X10*3/uL (0.1-1.2); Monocytes Percent Auto 7.5 % (2-11); Neutrophils Absolute Auto 4.4 x10*3/uL (2.0-8.3); Neutrophils Percent Auto 66.4 % (45-73); Platelet Count 284 X10*3/uL (160-400); Red Blood Count 5.07 X10*6/uL (4.20-5.50); Red Cell Distribution Width 12.4 % (11.0-16.0); White Blood Count 6.7 X10*3/uL (4.8-10.8)
[2023-06-20 12:20] LABS: Alanine Aminotransferase 21 U/L (0-31); Albumin Level 4.2 g/dL (3.5-5.0); Alkaline Phosphatase 90 U/L (39-117); Anion Gap 11 (12-20); Aspartate Amino Transferase 16 U/L (5-31); Bilirubin Total 0.7 mg/dL (0.0-1.0); Blood Urea Nitrogen 20 mg/dL (9-16); Calcium 10.1 mg/dL (8.4-10.2); Carbon Dioxide 26 mmol/L (22-29); Chloride 109 mmol/L (96-108); Cholesterol 168 mg/dL (<200); Estimated Glomerular Filt Rate > 60; Glucose Fasting 126 mg/dL (60-99); HDL Cholesterol 53 mg/dL (>40); LDL Cholesterol Calculated 98 mg/dL (<100); Sodium 142 mmol/L (135-145); Total Protein 6.9 g/dL (6.5-8.0); Triglycerides 86 mg/dL (<150)
[2023-06-20 12:37] LABS: TSH reflex Free T4 0.76 uIU/mL (0.32-4.0)
[2023-06-20 12:42] LABS: Appearance Urine Clear; Color Urine Yellow; Glucose Urine UA Negative (Negative); Leukocyte Esterase Urine Negative (Negative); Nitrite Urine Negative (Negative); Urine Blood Negative (Negative); Urine Ketones Negative (Negative); Urine Protein Negative (Neg-Trace)
[2023-06-20 13:40] LABS: Microalbumin Urine < 5.0 mg/L
== END 2023-06-20 07:53 | disposition home or self-care (01) ==
LOC: HO.WFDLDS 07:52
PROVIDERS: Visit Provider Family Medicine
DX: Z00.00 Encounter for general adult medical examination without abnormal findings (principal); I10 Essential (primary) hypertension
CPT/HCPCS: 36415; 80053; 80061; 81003; 82043; 84443; 85025

== ENCOUNTER → 2023-06-26 13:14 | Outpatient (BNVA) | payer MEDICARE, BC, SELFPAY | PROVIDERS: PCP Family Medicine; Visit Provider Urology ==

== ENCOUNTER 2023-07-10 08:28 | Outpatient (AMB) | payer MEDICARE, BC, SELFPAY ==
--- NOTE | 2023-07-10 08:32 | A.OFFPC_ITS ---
Vital Signs 07/10/23 08:39 Height 5 ft 2 in Weight 154 lb 6 oz BMI 28.2 BP 122/58 L Blood Pressure Location Lt brachial Position Sitting Respiration 14 Pulse 82 Pulse Source Pulse Oximeter Temp 98.7 F Temp Source Oral Pulse Oximetry (%) 96 Oxygen Delivery Method Room Air Intake Visit Reasons: f/u elevated liver enzymes and labs Intake Note: Patient reports she has a concern for her kidney due to the recent infections. Patient is wondering if she should see a desktop support consultant? Service Center Representative Required: No Accompanied by: Self / Same As Patient Allergies No Known Allergies [No Known Allergies*] Allergy (Verified 07/10/23 08:42) Tobacco use date assessed: 12/04/22 Fall risk assessment: No Falls in past year Last assessed Fall Risk: 07/10/23 HPI f/u elevated liver enzymes and labs HPI Details 73 y/o female presents to f/u hypertensi on, elevated liver enzymes and hyperlipidemia. Blood pressure today 122/58. She is on losartan 50mg and nifedipine 30mg daily. Labs were drawn 06/20/23. Reviewed labs with pt. Last A1c 05/31/23 6.0%. Triglycerides 86. TC 168. LDL 98. HDL 53. She is on artovastatin 40mg daily. [facility] Medical History Renal calculi Renal cyst S/p nephrectomy UTI (urinary tract infection) Surgical History Hx of cataract surgery S/P cholecystectomy S/P PATRICIA-BSO Family History Father Stroke Cancer Mother Cancer HTN (hypertension) Social History Housing: House Patient Tobacco Use Status: Former Tobacco user e-Cigarette/Vaping Use: Never Used Second Hand Smoke Exposure: No service: No Current occupational status: retired Current occupational exposures/hazards: No Cognitive needs: No Hearing needs: No Vision needs: No Questionnaire MARYSE-7 AMB Questionnaire MARYSE-7 Date MARYSE - 7 assessed: 12/04/22 Source: Developed by Drs. Laith Green, NoelleEder Stewart and colleagues, with an educational raj from [employer]. Physical exam (Primary Care) Vital Signs: Last Vital Signs Temp 98.7 F 07/10/23 08:39 Pulse 82 07/10/23 08:39 Resp 14 07/10/23 08:39 BP 122/58 L 07/10/23 08:39 Pulse Ox 96 07/10/23 08:39 Oxygen Delivery Method Room Air 07/10/23 08:39 BMI result Body Mass Index 28.2 Tobacco/Smoking Status: Tobacco use Status Tobacco use date assessed 12/04/22 07/10/23 08:32 Patient Tobacco Use Status Former Tobacco user 07/10/23 08:32 e-Cigarette/Vaping Use Never Used 07/10/23 08:32 Assessment and Plan Assessment & Plan (1) Essential hypertension: Code(s): I10 - Essential (primary) hypertension Plan: Blood pressure is well controlled Goal is less than 140/90 Continue current medication (2) Elevated liver enzymes: Code(s): R74.8 - Abnormal levels of other serum enzymes Plan: History of mildly elevated liver enzymes. This has resolved (3) Hyperlipidemia: Code(s): E78.5 - Hyperlipidemia, unspecified Plan: Lipids well controlled on atorvastatin Continue current medication (4) Bacteriuria: Code(s): R82.71 - Bacteriuria Plan: Likely some bacteriuria on last urine check Most recently urinalysis is normal She notes that she has had a UTI with sepsis in the past and is concerned about this. She has followed up with her urologist who noted some abnormalities and treated her. She has an ultrasound of the urinary system coming up and will follow-up with urology. (5) Screening for osteoporosis: Code(s): Z13.820 - Encounter for screening for osteoporosis Plan: Bone density is ordered Will ask the office to check on status (6) Immunization counseling: Code(s): Z71.85 - Encounter for immunization safety counseling Plan: Recommended high-dose flu shot and COVID shot at her pharmacy. Coding Level of Care Code Est Pt Level 4 (63979) Diagnoses Essential hypertension I10 Elevated liver enzymes R74.8 Hyperlipidemia E78.5 Bacteriuria R82.71 Screening for osteoporosis Z13.820 Immunization counseling Z71.85
[2023-07-10 08:39] VITALS: BP 122/58; PULSE 82; RESP 14; TEMP 37.1; O2SAT 96; BMI 28.2
== END 2023-07-10 09:25 | disposition home or self-care (01) ==
PROVIDERS: PCP Family Medicine; Visit Provider Family Medicine
DX: I10 Essential (primary) hypertension (principal); R74.8 Abnormal levels of other serum enzymes; E78.5 Hyperlipidemia, unspecified; R82.71 Bacteriuria; Z13.820 Encounter for screening for osteoporosis; Z71.85 Encounter for immunization safety counseling
CPT/HCPCS: 99214

== ENCOUNTER 2023-07-12 07:38 | Outpatient (REF) | payer MEDICARE, BC, SELFPAY ==
--- NOTE | ~2023-07-12 | US_ITS ---
EXAMINATION: US RETROPERITONEAL LIMITED (RENAL ONLY) CLINICAL INFORMATION: Cyst of kidney, acquired. COMPARISON: CT abdomen and pelvis 08/22/2022. Renal ultrasound 07/09/2022 and 11/23/2021. X-ray KUB 02/22/2020 and 02/10/2020. TECHNIQUE: Real-time imaging of the kidneys. FINDINGS: RIGHT KIDNEY: Surgically absent. There is hypoechoic 1.3 x 1.6 x 1.5 cm focus, most likely seen on the CT scan from August 2022 adrenal gland LEFT KIDNEY: 13.4 x 6.4 x 5.4 cm (SAG x AP x TRV). The left kidney completely replaced by numerous cysts with the largest in the upper pole measured 5.8 x 4.6 x 5.7 cm, 2.1 x 2.1 x 2.2 cm, 2.0 x 1.1 x 1.5 cm. There is 1.3 x 1.1 x 1.4 cm cyst in the lower pole there is 0.5 x 0.4 x 0.6 cm stone in the upper pole and 0.4 x 0.4 x 0.5 cm stone in the upper pole there is pelvic fullness and multiple echogenic foci seen. IMPRESSION : 1. Adrenal gland nodule. 2. Innumerable cysts in the left kidney and nephrolithiasis, correlate with CT scan
== END 2023-07-12 07:39 | disposition home or self-care (01) ==
LOC: HO.US 07:38
PROVIDERS: PCP Family Medicine; Visit Provider Urology
DX: N28.1 Cyst of kidney, acquired (principal); Z90.5 Acquired absence of kidney; Z87.442 Personal history of urinary calculi
CPT/HCPCS: 76775

== ENCOUNTER 2023-08-26 08:44 | Outpatient (AMB) | payer MEDICARE, BC, SELFPAY ==
--- NOTE | 2023-08-26 08:45 | A.OFFVIS_ITS ---
Intake Intake Visit Reasons: 7m/US Intake Note: Patient presents today for a follow-up on Renal Ultra Sound: Meds- None Allergies to Antibiotic- No Known Allergies Blood Thinner- None Skip Hoist Operator Required: No Accompanied by: Self / Same As Patient Allergies No Known Allergies [No Known Allergies*] Allergy (Verified 08/26/23 09:02) Medication List - Last Reconciled 08/26/23 by Kathya Green MD albuterol sulfate 90 mcg/actuation 2 puffs PO Q6H PRN 3 months amoxicillin-pot clavulanate 500-125 mg (Augmentin) 1 tab PO BID atorvastatin 40 mg PO DAILY 90 days losartan 50 mg PO DAILY 90 days metformin 500 mg PO DAILY montelukast 10 mg PO DAILY 3 months nifedipine ER 30 mg PO DAILY 90 days nifedipine ER 90 mg PO DAILY 3 months omeprazole 40 mg (2 x 20 mg) PO DAILY salmeterol (Serevent Diskus) 2 inhalations inhalation BID HPI HPI Comments History of Present Illness Details Holley is a 73-year-old female who presents today to the office for a follow-up. 08/26/2023? PMH: DM, Htn, h/o hyst. She is followed today for US results. 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 Patient has a history of kidney stones and renal cysts. She was last seen by me on 01/24/2023, and advised on diet to decrease risk for kidney stones including adequate fluid hydration. She denies dysuria, on questioning states dull ache in left kidney area. In review of the US there is multiple renal cyst and possible kidney stones comparing this to prior CAT scan from 08/22/22 there was a 4.6x4.6 cm complex cyst with peripheral calcification along the wall. Review of charts: 09/28/22--24 hour urine results: Total v olume 1.57 liters, Calcium 133 mg; Oxalate 19 mg, Sodium 186, Citrate 464 mg. 08/26/2023: Evaluation today--UA-- leukoc ytes: negative; Nitrite: positive. 08/26/23: Plan: Refer to nephrology. Nitrite positive urine--Prescribed Augmentin 500 mg twice a day for 7 days. pending urine c/s Diet Modification. Advised to consume adequate amount of water. Recommended to increase citrate in diet, (add lemon 1/2 cup, to water) Patient education material regarding dietary recommendation for preventing renal calculi was provided. Acquired Solitary Kidney. Kidney Cyst. --Will monitor; Follow-up in one year with non contrast CT scan. PFSH Medical History Renal calculi Renal cyst UTI (urinary tract infection) S/p nephrectomy Surgical History S/P cholecystectomy Hx of cataract surgery S/P PATRICIA-BSO Family History Father Stroke Cancer Mother Cancer HTN (hypertension) Social History Housing: House Patient Tobacco Use Status: Former Tobacco user e-Cigarette/Vaping Use: Never Used Second Hand Smoke Exposure: No service: No Current occupational status: retired Current occupational exposures/hazards: No Cognitive needs: No Hearing needs: No Vision needs: No Review of Systems Const All systems reviewed & are unremarkable except as noted in HPI and below Reports no additional complaints Eyes Reports no additional complaints ENT Denies neck pain Card Denies leg edema Resp Denies cough GI Denies constipation Reports no additional complaints Musc Reports no additional complaints and Denies neck pain Skin/Breast Denies rash and Denies unusual bruising Neuro Reports no additional complaints Psych Reports no additional complaints Endo Reports no additional complaints Agustín/Lymph Reports no additional complaints Aller/Immun Reports no additional complaints Results AMB Urinalysis, Automated UA Leukoctes 70 Jordan/uL Last Edit by DARBY Oden on 08/26/23 09:14 1+ [place] N[place] 08/26/23 09:14 UA Nitrite Positive Last Edit by DARBY Oden on 08/26/23 09:14 UA Urobilinogen 0.2 mg/dL Last Edit by Wilmar Nj A on 08/26/23 09:1 4 UA Protein 0 mg/dL Last Edit by Wilmar Nj, A on 08/26/23 09:14 UA pH 6.0 Last Edit by Wilmar Nj, A on 08/26/23 09:14 UA Blood 0 Mio/uL Last Edit by Wilmar Nj, A on 08/26/23 09:14 UA Specific [place] 1.015 Last Edit by Wilmar Nj, A on 08/26/23 09: 14 UA Ketone Negative Last Edit by Wilmar Nj [facility] on 08/26/23 09:14 UA Bilirubin 0 mg/dL Last Edit by Wilmar Nj A on 08/26/23 09:14 UA Glucose 0 mg/dL Last Edit by Wilmar Nj A on 08/26/23 09:14 Results Reviewed Results Reviewed: Laboratory Last Values Urine pH (Auto) 6.0 08/26/23 09:13 Specific [place] (Auto) 1.015 08/26/23 09:13 Urine Protein (Auto) 0 mg/dL 08/26/23 09:13 Glucose (UA)(Auto) 0 mg/dL 08/26/23 09:13 Urine Ketones (Auto) Negative 08/26/23 09:13 Urine Blood (Auto) 0 Mio/uL 08/26/23 09:13 Urine Nitrite (Auto) Positive 08/26/23 09:13 Urine Bilirubin (Auto) 0 mg/dL 08/26/23 09:13 Urine Urobilinogen (Auto) 0.2 mg/dL 08/26/23 09:13 Leukocyte Esterase (Auto) 70 Jordan/uL 08/26/23 09:13 Date of Service: 07/12/23 EXAMINATION: US RETROPERITONEAL LIMITED (RENAL ONLY) CLINICAL INFORMATION: Cyst of kidney, acquired. COMPARISON: CT abdomen and pelvis 08/22/2022. Renal ultrasound 07/09/2022 and 11/23/2021. X-ray KUB 02/22/2020 and 02/10/2020. FINDINGS: RIGHT KIDNEY: Surgically absent. There is hypoechoic 1.3 x 1.6 x 1.5 cm focus, most likely seen on the CT scan from August 2022 adrenal gland LEFT KIDNEY: 13.4 x 6.4 x 5.4 cm (SAG x AP x TRV). The left kidney completely replaced by numerous cysts with the largest in the upper pole measured 5.8 x 4.6 x 5.7 cm, 2.1 x 2.1 x 2.2 cm, 2.0 x 1.1 x 1.5 cm. There is 1.3 x 1.1 x 1.4 cm cyst in the lower pole there is 0.5 x 0.4 x 0.6 cm stone in the upper pole and 0.4 x 0.4 x 0.5 cm stone in the upper pole there is pelvic fullness and multiple echogenic foci seen. IMPRESSION: 1. Adrenal gland nodule. 2. 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 Nitrite positive urine--Prescribed Augmentin 500 mg twice a day for 7 days. pending urine c/s Diet Modification. Advised to consume adequate amount of water. Recommended to increase citrate in diet, (add lemon 1/2 cup, to water) Patient education material regarding dietary recommendation for preventing renal calculi was provided. Acquired Solitary Kidney. Kidney Cyst. --Will monitor; Follow-up in one year with non contrast CT scan. Orders: Orders AMB Urinalysis Automated Today Z13.9 - Encounter for screening, unspecified Urine Culture Today N39.0 - Urinary tract infection, site not specified Medications: New amoxicillin-pot clavulanate 500-125 mg (Augmentin) 1 tab PO BID 14 tabs 0RF Patient Instructions: The patient had an opportunity to ask questions regarding treatment plan. All questions were answered. Imaging, Laboratory studies and physical exam results were discussed and reviewed in detail. No major barriers to understanding were identified. The patient expressed understanding and agreement with the above treatment plan. The patient is aware they should contact our office by phone for worsening of their current condition or the appearance of new symptoms. Compliance is encouraged with any medications and followup testing that is ordered. It is a privilege to be allowed the opportunity to participate in the urologic care of your patient. If you have any questions or concerns regarding treatment for the above conditions please do not hesitate to contact me. The office telephone contact is [phone]. This note is constructed in part using voice recognition software. While every effort has been made to ensure accuracy clinical laboratory technologist errors may have been included. Yours sincerely, Kathya Green MD Coding Level of Care Code Est Pt Level 4 (07687) Diagnoses Acquired complex cyst of kidney N28.1 History of kidney stones Z87.442 Acquired solitary kidney Z90.5 Multiple renal cysts Q61.02
== END 2023-08-26 09:37 | disposition home or self-care (01) ==
LOC: HO.HUSH 08:44
PROVIDERS: Visit Provider Urology
DX: N28.1 Cyst of kidney, acquired (principal); Z87.442 Personal history of urinary calculi; Z90.5 Acquired absence of kidney; Z13.9 Encounter for screening, unspecified
CPT/HCPCS: 99214

== ENCOUNTER 2023-08-26 08:44 | Outpatient (REF) | payer MEDICARE, BC, SELFPAY | END 2023-08-26 08:45 | disposition home or self-care (01) | LOC: HO.LAB 08:44 | PROVIDERS: Visit Provider Urology | DX: N39.0 Urinary tract infection, site not specified (principal); N20.0 Calculus of kidney; Q61.02 Congenital multiple renal cysts; Z87.442 Personal history of urinary calculi; Z90.5 Acquired absence of kidney | CPT/HCPCS: 81003; 87086; 87088; 87186; 99212 ==

== ENCOUNTER 2023-09-05 15:08 | Outpatient (AMB) | payer MEDICARE, BC, SELFPAY ==
[2023-09-05 15:12] VITALS: BP 124/70; PULSE 71; O2SAT 97; BMI 27.3
--- NOTE | 2023-09-05 15:12 | A.OFFPC_ITS ---
Vital Signs 09/05/23 15:12 Height 5 ft 2 in Weight 149 lb 2 oz BMI 27.3 BP 124/70 Blood Pressure Location Lt brachial Position Sitting Pulse 71 Pulse Source Pulse Oximeter Pulse Oximetry (%) 97 Oxygen Delivery Method Room Air Intake Visit Reasons: follow up bp med Intake Note: Patient is here to follow up on blood pressure med today. She states she is feeling better since stopping the Losartan. Allergies No Known Allergies [No Known Allergies*] Allergy (Verified 09/05/23 15:14) Tobacco use date assessed: 09/05/23 Fall risk assessment: 1 Fall in past year Last assessed Fall Risk: 09/05/23 HPI follow up bp med HPI Details 73 y/o female presents to f/u hypertensi on and diabetes. Blood pressure today 124/70. She is on losartan 50mg and nifedipine. She reports she had initially taken her losartan off due to concerns about low blood pressures and dizziness. She had recently gotten a BP cuff but pt notes she had went back to losartan after noticing her blood pressures creeping up. Last A1c 05/31/23 6.0%. She is on metformin 500mg daily. A1c today 09/05/23 is 5.8%. HPI Comments History of Present Illness Details Documentation assistance for Jose Luis Roe MD, was provided by Kurtis Stout, Qm Nurse on 09/05/2023 3:38 PM DYLAN. Jose L, Dr. Roe, have read, observed, and verified documentation. [facility] Medical History Renal calculi Renal cyst UTI (urinary tract infection) S/p nephrectomy Surgical History S/P cholecystectomy Hx of cataract surgery S/P PATRICIA-BSO Family History Father Stroke Cancer Mother Cancer HTN (hypertension) Social History Housing: House Patient Tobacco Use Status: Former Tobacco user e-Cigarette/Vaping Use: Never Used Second Hand Smoke Exposure: No service: No Current occupational status: retired Current occupational exposures/hazards: No Cognitive needs: No Hearing needs: No Vision needs: No Questionnaire MARYSE-7 AMB Questionnaire MARYSE-7 Date MARYSE - 7 assessed: 12/04/22 Source: Developed by Drs. Laith Green, Noelle Garcia, Eder Martin and colleagues, with an educational raj from [employer]. Review of Systems Const Denies chills, Denies fatigue, Denies fever(s), Denies headache(s) and Denies weakness ENT Denies dizziness and Denies headache(s) Card Denies dyspnea Resp Denies cough, Denies dyspnea, Denies wheezing and Denies other (shortness of breath) Musc Denies numbness and Denies tingling Neuro Denies dizziness, Denies headache(s), Denies numbness, Denies tingling and Denie s weakness Psych Denies anxiety and Denies depression Endo Denies fatigue Aller/Immun Denies wheezing Physical exam (Primary Care) Vital Signs: Last Vital Signs Pulse 71 09/05/23 15:12 BP 124/70 09/05/23 15:12 Pulse Ox 97 09/05/23 15:12 Oxygen Delivery Method Room Air 09/05/23 15:12 BMI result Body Mass Index 27.3 Tobacco/Smoking Status: Tobacco use Status Tobacco use date assessed 09/05/23 09/05/23 15:16 Patient Tobacco Use Status Former Tobacco user 09/05/23 15:16 e-Cigarette/Vaping Use Never Used 09/05/23 15:16 Const General: well developed; No acute distress Nutritional Appearance: well nourished Orientation/consciousness: patient oriented x3 HENMT Head: Yes normocephalic and Yes atraumatic Eyes General: appearance normal, both eyes and all related structures Pupils: Equal, round and reactive pupils present EOM: EOMs intact bilaterally Resp Effort & Inspection: normal respiratory effort Auscultation: clear to auscultation bilaterally Cardio Rate: regular rate Rhythm: regular rhythm Heart sounds: S1 normal heart sound present, S2 normal heart sound present, no gallops, no murmurs and no rubs Neuro General: patient oriented x3 and gait normal Cranial nerves: Yes Equal, round and reactive pupils present Psych Affect: normal affect Results AMB Hemoglobin A1c AMB Hemoglobin A1c 5.8 % Last Edit by Laurie Moore CMA on 09/05/23 15:35 Results Reviewed Results Reviewed: Laboratory Last Values Hgb A1c (Clinic) 5.8 % (4.0-6.0) 09/05/23 15:34 Assessment and Plan Assessment & Plan (1) Essential hypertension: Code(s): I10 - Essential (primary) hypertension Plan: Blood?pressure?is?well?controlled. Goal?is?less?than?140/90 Tolerating?nifedipine?and?losartan. Continue?current?medication?regimen (2) Diabetes type 2, controlled: Code(s): E11.9 - Type 2 diabetes mellitus without complications Plan: A1c?shows?good?control.??Goal?is?less?than?7% Continue?current?medication Orders: Orders AMB Hemoglobin A1c Today Z13.9 - Encounter for screening, unspecified Coding Level of Care Code Est Pt Level 3 (93644) Diagnoses Essential hypertension I10 Diabetes type 2, controlled E11.9
== END 2023-09-05 15:46 | disposition home or self-care (01) ==
PROVIDERS: PCP Family Medicine; Visit Provider Family Medicine
DX: I10 Essential (primary) hypertension (principal); E11.9 Type 2 diabetes mellitus without complications
CPT/HCPCS: 83036; 99213

== ENCOUNTER 2023-09-23 13:08 | Outpatient (REF) | payer MEDICARE, BC, SELFPAY | END 2023-09-23 13:09 | disposition home or self-care (01) | LOC: HO.LAB 13:08 | PROVIDERS: PCP Family Medicine; Visit Provider Urology | DX: N39.0 Urinary tract infection, site not specified (principal) | CPT/HCPCS: 87086; 87088; 87186 ==

== ENCOUNTER 2023-09-27 13:27 | Outpatient (AMB) | payer MEDICARE, BC, SELFPAY ==
[2023-09-27 13:33] VITALS: BP 126/78; PULSE 87; O2SAT 97; BMI 28.9
--- NOTE | 2023-09-27 13:33 | HO.NEPHOV_ITS ---
HPI HPI Comments History of Present Illness Details 73-year-old woman with a history of long standing hypertension and solitary left kidney has a history of nephrolithiasis has been referred for evaluation of renal cyst. While she was in her 30s she underwent nephrectomy for nonfunctioning atrophy right kidney. Since then she has been enjoying reasonably good health. Recently she has had multiple urinary tract infections. The last to infections where with E coli and Klebsiella. Currently she is on Bactrim -prescribed for a week She recent ultrasonogram : The report reads as innumerable cyst replace in the left kidney. However a CT scan done a year ago did not reveal numerous is but there was 1 cyst. The report seems conflicting Overall she is doing well. She is tolerating antihypertensive medications. Blood pressure has been well controlled. She has no specific complaints today including dysuria urgency hematuria or back pain. No fever PFSH Medical History Renal calculi Renal cyst UTI (urinary tract infection) S/p nephrectomy Surgical History S/P cholecystectomy Hx of cataract surgery S/P PATRICIA-BSO Family History Father Stroke Cancer Mother Cancer HTN (hypertension) Social History Housing: House Patient Tobacco Use Status: Former Tobacco user e-Cigarette/Vaping Use: Never Used Second Hand Smoke Exposure: No service: No Current occupational status: retired Current occupational exposures/hazards: No Cognitive needs: No Hearing needs: No Vision needs: No Vital Signs 09/27/23 13:33 Height 5 ft 2 in Weight 158 lb BMI 28.9 BP 126/78 Blood Pressure Location Rt brachial Position Sitting Pulse 87 Pulse Source Pulse Oximeter Pulse Oximetry (%) 97 Oxygen Delivery Method Room Air Physical Exam Vital Signs: Last Vital Signs Pulse 87 09/27/23 13:33 BP 126/78 09/27/23 13:33 Pulse Ox 97 09/27/23 13:33 Oxygen Delivery Method Room Air 09/27/23 13:33 BMI result Body Mass Index 28.9 Const General: comfortable Nutritional Appearance: well nourished Orientation/consciousness: patient oriented x3 HEENT Head: No normal to inspection Mouth: moist mucous membranes Neck Neck: Yes supple and Yes no JVD Resp Auscultation: clear to auscultation bilaterally, no rales and rub present Cardio Jugular venous distension: no JVD Palpation: no palpable S3 and no palpable S4 Heart sounds: no rubs GI Palpation (GI): Soft to palpation and nontender Percussion: No Fluid wave present General: Yes no CVA tenderness Back/Spine/Pelvis Back: no CVA tenderness Skin General skin exam: no rashes or lesions noted Neuro General: patient oriented x3 Extrem General: Yes no pedal edema and No clubbing Assessment & Plan Assessment & Plan (1) Multiple renal cysts: Code(s): 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 The CT scan done in 2021 revealed 1 cyst on the left kidney however ultrasonogram done in June 2023 was reported has multiple renal cyst. It is unlikely that she would have developed multiple cyst within 1 year. However the previous ultrasonogram also with reported a questionable septic stated or complex cyst. She will require a follow-up CT scan to evaluate the renal cyst. She has had recurrent UTIs with a history of renal stones. We will complete a course of Bactrim and recheck the renal panel in the next 10 days. Order 24 hour urine collection for stone studies. Encouraged her to stay on low-sodium diet and to increase her fluid intake to maintain a urine output of at least 2 L. The blood pressure is well controlled. No changes were made to the antihypertensive regimen. Overall blood sugar is well controlled with a hemoglobin A1c of less than 6%. Orders: Orders Electrolytes 2 Weeks N28.1 - Cyst of kidney, acquired, Q61.02 - Congenital multiple renal cysts, Z87.442 - Personal history of urinary calculi Blood Urea Nitrogen 2 Weeks N28.1 - Cyst of kidney, acquired, Q61.02 - Congenital multiple renal cysts, Z87.442 - Personal history of urinary calculi Calcium 2 Weeks N28.1 - Cyst of kidney, acquired, Q61.02 - Congenital multiple renal cysts, Z87.442 - Personal history of urinary calculi Total Protein Urine Random 2 Weeks N28.1 - Cyst of kidney, acquired, Q61.02 - Congenital multiple renal cysts, Z87.442 - Personal history of urinary calculi Creatinine Urine 2 Weeks N28.1 - Cyst of kidney, acquired, Q61.02 - Congenital multiple renal cysts, Z87.442 - Personal history of urinary calculi UA and rflx microscopic 2 Weeks N28.1 - Cyst of kidney, acquired, Q61.02 - Congenital multiple renal cysts, Z87.442 - Personal history of urinary calculi Sodium, 24Hr Urine Group 2 Weeks N28.1 - Cyst of kidney, acquired, Q61.02 - Congenital multiple renal cysts, Z87.442 - Personal history of urinary calculi Calcium, 24 Hr Ur 2 Weeks N28.1 - Cyst of kidney, acquired, Q61.02 - Congenital multiple renal cysts, Z87.442 - Personal history of urinary calculi Uric Acid, 24Hr Urine Group 2 Weeks N28.1 - Cyst of kidney, acquired, Q61.02 - Congenital multiple renal cysts, Z87.442 - Personal history of urinary calculi Creatinine, 24 Hr Group 2 Weeks N28.1 - Cyst of kidney, acquired, Q61.02 - Congenital multiple renal cysts, Z87.442 - Personal history of urinary calculi Oxalate, 24 Hr 2 Weeks N28.1 - Cyst of kidney, acquired, Q61.02 - Congenital multiple renal cysts, Z87.442 - Personal history of urinary calculi Citric Acid 24hr Urine 2 Weeks N28.1 - Cyst of kidney, acquired, Q61.02 - Congenital multiple renal cysts, Z87.442 - Personal history of urinary calculi Creatinine 2 Weeks N28.1 - Cyst of kidney, acquired, Q61.02 - Congenital multiple renal cysts, Z87.442 - Personal history of urinary calculi Uric Acid 2 Weeks N28.1 - Cyst of kidney, acquired, Q61.02 - Congenital multiple renal cysts, Z87.442 - Personal history of urinary calculi Urine Culture 2 Weeks N28.1 - Cyst of kidney, acquired, Q61.02 - Congenital multiple renal cysts, Z87.442 - Personal history of urinary calculi Coding Level of Care Code New Pt Level 4 (20493) Diagnoses Multiple renal cysts Q61.02 History of kidney stones Z87.442 UTI (urinary tract infection) N39.0 Essential hypertension I10 Diabetes type 2, controlled E11.9 Results Reviewed Results Reviewed: AUG 2022: CT/CT abdomen pelvis wo IV contrast 1. No radiopaque urolith or hydroureteronephrosis. 2. Complex cyst midpole left kidney. 3. Diffuse colonic diverticulosis without diverticulitis. 4. 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 5. The left adrenal lesion measures 1.22 x 0.9 cm and the right adrenal lesion measures 1.8 x 1.3 cm both measuring minus Hounsfield units. June 2023: Renal Sonogram: KIDNEY: Surgically absent. There is hypoechoic 1.3 x 1.6 x 1.5 cm focus, most likely seen on the CT scan from August 2022 adrenal gland LEFT KIDNEY: 13.4 x 6.4 x 5.4 cm (SAG x AP x TRV). The left kidney completely replaced by numerous cysts with the largest in the upper pole measured 5.8 x 4.6 x 5.7 cm, 2.1 x 2.1 x 2.2 cm, 2.0 x 1.1 x 1.5 cm. There is 1.3 x 1.1 x 1.4 cm cyst in the lower pole there is 0.5 x 0.4 x 0.6 cm stone in the upper pole and 0.4 x 0.4 x 0.5 cm stone in the upper pole there is pelvic fullness and multiple echogenic foci seen. IMPRESSION: 1. Adrenal gland nodule. 2. Innumerable cysts in the left kidney and nephrolithiasis, correlate with CT scan Nephrology Results: Hgb 15.1 g/dl (12.0-16.0) 06/20/23 WBC 6.7 X10*3/uL (4.8-10.8) 06/20/23 Plt Count 284 X10*3/uL (160-400) 06/20/23 Sodium 142 mmol/L (135-145) 06/20/23 Potassium 4.0 mmol/L (3.3-5.1) 06/20/23 Chloride 109 mmol/L (96-108) H 06/20/23 Carbon Dioxide 26 mmol/L (22-29) 06/20/23 BUN 20 mg/dL (9-16) H 06/20/23 Creatinine 0.73 mg/dL (0.5-1.4) 06/20/23 Calcium 10.1 mg/dL (8.4-10.2) 06/20/23 Urine Protein Negative mg/dL (Neg-Trace) 06/20/23 Urine Creatinine 44.60 mg/dL 06/20/23 Renal US 07/12/23
== END 2023-09-27 14:17 | disposition home or self-care (01) ==
PROVIDERS: PCP Family Medicine; Visit Provider Internal Medicine Hypertension Specialist
DX: Q61.02 Congenital multiple renal cysts (principal); Z87.442 Personal history of urinary calculi; N39.0 Urinary tract infection, site not specified; I10 Essential (primary) hypertension; E11.9 Type 2 diabetes mellitus without complications
CPT/HCPCS: 99204

== ENCOUNTER → 2023-09-27 13:27 | Outpatient (BNVA) | payer MEDICARE, BC, SELFPAY | PROVIDERS: PCP Family Medicine; Visit Provider Internal Medicine Hypertension Specialist | DX: Q61.02 Congenital multiple renal cysts (principal); N39.0 Urinary tract infection, site not specified; I10 Essential (primary) hypertension; E11.9 Type 2 diabetes mellitus without complications; Z87.442 Personal history of urinary calculi | CPT/HCPCS: 99202 ==

== ENCOUNTER 2023-10-10 07:48 | Outpatient (REF) | payer MEDICARE, BC, SELFPAY ==
[2023-10-10 10:58] LABS: Appearance Urine Cloudy; Color Urine Yellow; Glucose Urine UA Negative (Negative); Leukocyte Esterase Urine Moderate (2+) (Negative); Nitrite Urine Positive (Negative); UMIC TRIGGER UA YES; Urine Blood Negative (Negative); Urine Ketones Negative (Negative); Urine Protein Negative (Neg-Trace)
[2023-10-10 11:02] LABS: Bacteria Urine 4+ (None Seen); Hyaline Casts Urine 0-2 /LPF (0-2); RBC Urine 0-2 /HPF (0-2); WBC Urine 21-50 /HPF (0-5)
[2023-10-10 11:09] LABS: Total Volume 24 Hour Urine 1850 mL
[2023-10-10 11:13] LABS: Anion Gap 13 (12-20); Blood Urea Nitrogen 16 mg/dL (9-16); Calcium 9.5 mg/dL (8.4-10.2); Carbon Dioxide 23 mmol/L (22-29); Chloride 108 mmol/L (96-108); Estimated Glomerular Filt Rate > 60; Sodium 140 mmol/L (135-145); Uric Acid 5.3 mg/dL (2.4-5.7)
[2023-10-10 11:20] LABS: Creatinine Urine 43.78 mg/dL; Total Protein Urine Random 10 mg/dL (<12)
[2023-10-10 12:38] LABS: Creatinine, 24Hr Urine 0.7 G/Day (1.0-2.0); Creatinine, mg/dL 37.58; Sodium 24 Hr Urine 103.6 mmol/Day (40-220)
[2023-10-10 12:42] LABS: Creatinine, 24Hr Urine 0.7 G/Day (1.0-2.0); Creatinine, mg/dL 37.81; Uric Acid, 24 Hr Urine 264.6 mg/Day (250-750); Uric Acid, mg/dL 14.3 mg/dL
[2023-10-11 18:33] LABS: Calcium, 24 Hr Urine 142 mg/24 h; Calcium/Creatinine Ratio 188 mg/g creat (30-275); Creatinine 24Hr Urine 0.76 g/24 h (0.50-2.15)
[2023-10-16 04:30] LABS: 24hr Urine Total Volume 1850 mL; Creatinine, 24U 0.76 g/24 h (0.50-2.15); Oxalic Acid 24 Urine 14.9 mg/24 h (3.6-38.0)
[2023-10-18 05:33] LABS: Citric Acid, 24hr Urine 233 mg/24 h (100-1300); Citric Acid/Creat Ratio 24U 313 mg/g creat (180-1070)
== END 2023-10-10 07:49 | disposition home or self-care (01) ==
LOC: HO.10HDL 07:48
PROVIDERS: Visit Provider Internal Medicine Hypertension Specialist
DX: Z00.00 Encounter for general adult medical examination without abnormal findings (principal); Q61.02 Congenital multiple renal cysts; Z87.442 Personal history of urinary calculi; R82.90 Unspecified abnormal findings in urine
CPT/HCPCS: 36415; 80051; 81001; 82310; 82340; 82507; 82565; 82570; 83945; 84156; 84300; 84520; 84550; 84560; 87086; 87088; 87186

== ENCOUNTER 2023-10-30 08:35 | Outpatient (AMB) | payer MEDICARE, BC, SELFPAY ==
[2023-10-30 08:45] VITALS: BP 134/72; PULSE 116; RESP 13; O2SAT 98; BMI 29.0
--- NOTE | 2023-10-30 08:45 | A.OFFPC_ITS ---
Vital Signs 10/30/23 08:45 Height 5 ft 2 in Weight 158 lb 6 oz BMI 29.0 BP 134/72 Blood Pressure Location Lt brachial Position Sitting Respiration 13 Pulse 116 H Pulse Source Pulse Oximeter Pulse Oximetry (%) 98 Oxygen Delivery Method Room Air Intake Visit Reasons: f/u diabetes and hypertension Intake Note: Patient is here to discuss hypertension. Patient reports her urologist sent her to a media services director (kidney doctor in [place]) and they placed her on a strong antibiotic. Complaint Operator Required: No Accompanied by: Self / Same As Patient Allergies No Known Allergies [No Known Allergies*] Allergy (Verified 10/30/23 08:51) Tobacco use date assessed: 09/05/23 HPI f/u diabetes and hypertension HPI Details 73 y/o female presents to f/u diabetes a nd hypertension. Last A1c 09/05/23 5.8%. She is on metformin 500mg daily. She denies any significant changes to her diet. She continues to get her eyes checked for a diabetic eye exam. Blood pressure today 134/72. She is on losartan 50mg and nifedipine. Had seen Nephrology 09/27/23 - hx of solitary L kidney and nephrolithiasis. Had been referred for evaluation of renal cyst. Had recommended a f/u CT scan to evaluate the renal cyst. Had been given bactrim for recurrent UTIs with hx of renal stones. COUNTS INCLUDE 234 BEDS AT THE [facility] Medical History Renal calculi Renal cyst UTI (urinary tract infection) S/p nephrectomy Surgical History S/P cholecystectomy Hx of cataract surgery S/P PATRICIA-BSO Family History Father Stroke Cancer Mother Cancer HTN (hypertension) Social History Housing: House Patient Tobacco Use Status: Former Tobacco user e-Cigarette/Vaping Use: Never Used Second Hand Smoke Exposure: No service: No Current occupational status: retired Current occupational exposures/hazards: No Cognitive needs: No Hearing needs: No Vision needs: No Questionnaire MARYSE-7 AMB Questionnaire MARYSE-7 Date MARYSE - 7 assessed: 02/14/23 Source: Developed by Drs. Laith Green, Noelle Garcia, Eder Martin and colleagues, with an educational raj from [employer]. Review of Systems Const Denies chills, Denies fatigue, Denies fever(s), Denies headache(s) and Denies weakness ENT Denies dizziness and Denies headache(s) Card Denies dyspnea Resp Denies cough, Denies dyspnea, Denies wheezing and Denies other (shortness of breath) Musc Denies numbness and Denies tingling Neuro Denies dizziness, Denies headache(s), Denies numbness, Denies tingling and Denies weakness Psych Denies anxiety and Denies depression Endo Denies fatigue Aller/Immun Denies wheezing Physical exam (Primary Care) Vital Signs: Last Vital Signs Pulse 116 H 10/30/23 08:45 Resp 13 10/30/23 08:45 BP 134/72 10/30/23 08:45 Pulse Ox 98 10/30/23 08:45 Oxygen Delivery Method Room Air 10/30/23 08:45 BMI result Body Mass Index 29.0 Tobacco/Smoking Status: Tobacco use Status Tobacco use date assessed 09/05/23 10/30/23 08:52 Patient Tobacco Use Status Former Tobacco user 10/30/23 08:52 e-Cigarette/Vaping Use Never Used 10/30/23 08:52 Const General: well developed; No acute distress Nutritional Appearance: well nourished Orientation/consciousness: patient oriented x3 HENMT Head: Yes normocephalic and Yes atraumatic Eyes General: appearance normal, both eyes and all related structures Pupils: Equal, round and reactive pupils present EOM: EOMs intact bilaterally Resp Effort & Inspection: normal respiratory effort Neuro General: patient oriented x3 and gait normal Cranial nerves: Yes Equal, round and reactive pupils present Psych Affect: normal affect Assessment and Plan Assessment & Plan (1) Diabetes type 2, controlled: Code(s): E11.9 - Type 2 diabetes mellitus without complications Plan: Last?A1c?was?5.8%?which?is?good?control.??Goal?is?less?than?7.0%. A?little?too?soon?to?recheck?A1c. She?is?taking?her?medications?as?prescribed?and?has?no?problems?with?them. No?changes?to?her?diet Continue?current?medication?regimen (2) Essential hypertension: Code(s): I10 - Essential (primary) hypertension Plan: Blood?pressure?is?controlled.??Goal?is?less?than?140/90 Mild?tachycardia?without?symptoms. Continue?current?medication?regimen.??Encouraged?good?hydration (3) UTI (urinary tract infection): Code(s): N39.0 - Urinary tract infection, site not specified Plan: Being?treated?by?Nephrology Follow-up?with?nephrology (4) Renal cyst: Code(s): N28.1 - Cyst of kidney, acquired Plan: Patient?has?single?left?kidney?and?complex?cyst. Also?adrenal?nodule. She?has?an?upcoming?appointment?with?Nephrology?next?week?in?will?discuss?need?f or?follow-up?CT Follow-up?with?nephrology?as?recommended Coding Level of Care Code Est Pt Level 4 (16970) Diagnoses Diabetes type 2, controlled E11.9 Essential hypertension I10 UTI (urinary tract infection) N39.0 Renal cyst N28.1
== END 2023-10-30 09:27 | disposition home or self-care (01) ==
PROVIDERS: PCP Family Medicine; Visit Provider Family Medicine
DX: E11.9 Type 2 diabetes mellitus without complications (principal); I10 Essential (primary) hypertension; N39.0 Urinary tract infection, site not specified; N28.1 Cyst of kidney, acquired
CPT/HCPCS: 99214

== ENCOUNTER 2023-11-01 10:44 | Outpatient (AMB) | payer MEDICARE, BC, SELFPAY ==
--- NOTE | 2023-11-01 10:59 | HO.NEPHOV_ITS ---
HPI HPI Comments History of Present Illness Details 73-year-old woman with longstanding hyp ertension and acquired solitary left kidney with history of nephrolithiasis had been evaluated and followed up renal cyst and renal stones. While she was in her 30s she underwent nephrectomy for nonfunctioning atrophy right kidney. She has had multiple urinary tract infections and finished a course of antibiotics recently . Last infections were with E coli and Klebsiella. Her recent ultrasonogram report reads as innumerable cyst replace in the left kidney. However a CT scan done a year ago did not reveal numerous cysts but there was 1 cyst. The report seems conflicting.Overall she is doing well. She is tolerating antihypertensive medications. Blood pressure has been well controlled. She has no history of flank pain, hematuria, night sweats, pedal edema, passing of grit or gravel in the urine. [facility] Medical History Renal calculi Renal cyst UTI (urinary tract infection) S/p nephrectomy Surgical History S/P cholecystectomy Hx of cataract surgery S/P PATRICIA-BSO Family History Father Stroke Cancer Mother Cancer HTN (hypertension) Social History Housing: House Patient Tobacco Use Status: Former Tobacco user e-Cigarette/Vaping Use: Never Used Second Hand Smoke Exposure: No service: No Current occupational status: retired Current occupational exposures/hazards: No Cognitive needs: No Hearing needs: No Vision needs: No Vital Signs 11/01/23 11:00 Height 5 ft 2 in Weight 158 lb 2 oz BMI 28.9 BP 124/70 Blood Pressure Location Rt brachial Position Sitting Pulse Oximetry (%) 95 Oxygen Delivery Method Room Air Physical Exam Vital Signs: Last Vital Signs BP 124/70 11/01/23 11:00 Pulse Ox 95 11/01/23 11:00 Oxygen Delivery Method Room Air 11/01/23 11:00 BMI result Body Mass Index 28.9 Const General: comfortable and no acute distress Orientation/consciousness: patient oriented x3 HEENT Head: Yes normocephalic Mouth: Normal oral and palatal mucosa present Eyes EOM: EOMs intact bilaterally Neck Neck: Yes supple Resp Auscultation: clear to auscultation bilaterally Cardio Jugular venous distension: no JVD Rate: regular rate GI Palpation (GI): Soft to palpation Auscultation: normal bowel sounds General: Yes no CVA tenderness Back/Spine/Pelvis Back: no CVA tenderness Skin General skin exam: no rashes or lesions noted Neuro General: patient oriented x3 and moves all extremities Extrem General: Yes no pedal edema Assessment & Plan Assessment & Plan (1) Multiple renal cysts: Code(s): 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 CT scan done in 2021 revealed 1 cyst on the left kidney however ultrasonogram done in June 2023 was reported has multiple renal cyst. It is unlikely that she would have developed multiple cyst within 1 year. However the previous ultrasonogram also with reported a questionable septic stated or complex cyst. She will require a follow-up CT scan to evaluate the renal cyst. She has had recurrent UTIs with a history of renal stones. She is hypertensive and has been on losartan and nifedipine. I discontinued her nifedipine and started her on hydrochlorothiazide given history of renal stones. Will get a 24 hour urine collection for stone studies in the future. She should be on a low-sodium diet and maintain good hydration. I did not make any other medication changes but discussed all the differential diagnosis, follow-up and management strategies. Follow-up lab work ordered. Answered all question. Follow-up given. Orders: Orders Creatinine Today Q61.02 - Congenital multiple renal cysts, Z87.442 - Personal history of urinary calculi, Z90.5 - Acquired absence of kidney Blood Urea Nitrogen Today Q61.02 - Congenital multiple renal cysts, Z87.442 - Personal history of urinary calculi, Z90.5 - Acquired absence of kidney Electrolytes Today Q61.02 - Congenital multiple renal cysts, Z87.442 - Personal history of urinary calculi, Z90.5 - Acquired absence of kidney Medications: New hydrochlorothiazide 25 mg PO DAILY 30 tabs 3RF Coding Level of Care Code Est Pt Level 4 (42992) Diagnoses Multiple renal cysts Q61.02 History of kidney stones Z87.442 Acquired solitary kidney Z90.5 Results Reviewed Nephrology Results: Hgb 15.1 g/dl (12.0-16.0) 06/20/23 WBC 6.7 X10*3/uL (4.8-10.8) 06/20/23 Plt Count 284 X10*3/uL (160-400) 06/20/23 Sodium 140 mmol/L (135-145) 10/10/23 Potassium 4.0 mmol/L (3.3-5.1) 10/10/23 Chloride 108 mmol/L (96-108) 10/10/23 Carbon Dioxide 23 mmol/L (22-29) 10/10/23 BUN 16 mg/dL (9-16) 10/10/23 Creatinine 0.76 mg/dL (0.5-1.4) 10/10/23 Calcium 9.5 mg/dL (8.4-10.2) 10/10/23 Urine Protein Negative mg/dL (Neg-Trace) 10/10/23 Urine Creatinine 43.78 mg/dL 10/10/23 Renal US 07/12/23
[2023-11-01 11:00] VITALS: BP 124/70; O2SAT 95; BMI 28.9
== END 2023-11-01 11:36 | disposition home or self-care (01) ==
PROVIDERS: PCP Family Medicine; Visit Provider Internal Medicine Nephrology
DX: Q61.02 Congenital multiple renal cysts (principal); Z87.442 Personal history of urinary calculi; Z90.5 Acquired absence of kidney
CPT/HCPCS: 99214

== ENCOUNTER → 2023-11-01 10:44 | Outpatient (BNVA) | payer MEDICARE, BC, SELFPAY | PROVIDERS: PCP Family Medicine; Visit Provider Internal Medicine Nephrology | DX: Q61.02 Congenital multiple renal cysts (principal); I10 Essential (primary) hypertension; Z90.5 Acquired absence of kidney; Z87.442 Personal history of urinary calculi | CPT/HCPCS: 99212 ==

== ENCOUNTER 2023-11-08 10:19 | Outpatient (REF) | payer MEDICARE, BC, SELFPAY ==
--- NOTE | 2023-11-08 11:50 | MHC.AU.HA1 ---
Hearing Aid Evaluation Date of Visit: 11/08/23 Summary: Teresa visited for a baseline audiogram which determined she is a hearing aid candidate. She reports difficulty hearing the TV and finds she often mishears people or asks them to repeat themselves. Discussed style and technology options today, she is likely interested in [facility] She plans to contact her insurance company to verify benefit then will call back when she is ready to move forward. Final details need to be decided (technology level, color). Action Taken/Action Needed: Patient will call when ready to move forward. Medical clearance will be requested. Primary Diagnosis: H90.3 Bilateral Sensorineural Hearing Loss Signature: Provider: Kenyetta Montes, CCC-A
== END 2023-11-08 10:20 | disposition home or self-care (01) ==
LOC: HO.SH 10:19
PROVIDERS: Visit Provider Family Medicine
DX: Z01.118 Encounter for examination of ears and hearing with other abnormal findings (principal); H90.3 Sensorineural hearing loss, bilateral
CPT/HCPCS: 92557

== ENCOUNTER 2024-01-24 09:53 | Outpatient (REF) | payer MEDICARE, BC, SELFPAY ==
[2024-01-24 11:27] LABS: Anion Gap 15 (12-20); Blood Urea Nitrogen 17 mg/dL (9-16); Carbon Dioxide 24 mmol/L (22-29); Chloride 108 mmol/L (96-108); Estimated Glomerular Filt Rate > 60; Potassium 4.3 mmol/L (3.3-5.1); Sodium 143 mmol/L (135-145)
== END 2024-01-24 09:54 | disposition home or self-care (01) ==
LOC: HO.LAB 09:53
PROVIDERS: Absent Provider Internal Medicine Nephrology; PCP Family Medicine; Visit Provider Family Medicine
DX: Q61.02 Congenital multiple renal cysts (principal); Z87.442 Personal history of urinary calculi; Z90.5 Acquired absence of kidney
CPT/HCPCS: 36415; 80051; 82565; 84520

== ENCOUNTER 2024-01-29 09:26 | Outpatient (AMB) | payer MEDICARE, BC, SELFPAY ==
[2024-01-29 09:30] VITALS: BP 120/74; PULSE 107; O2SAT 99; BMI 28.8
--- NOTE | 2024-01-29 09:30 | MHC.PC.OV ---
Vital Signs 01/29/24 09:30 Height 5 ft 2 in Weight 157 lb 8 oz BMI 28.8 BP 120/74 Blood Pressure Location Lt brachial Position Sitting Pulse 107 H Pulse Source Pulse Oximeter Pulse Oximetry (%) 99 Oxygen Delivery Method Room Air Intake Visit Reasons: f/u diabetes, HTN Intake Note: Patient is here for follow up on diabetes and hypertension. Allergies No Known Allergies [No Known Allergies*] Allergy (Verified 01/29/24 09:31) Medication List - Last Reconciled 01/29/24 by Jose Luis Roe MD atorvastatin 40 mg PO DAILY 90 days hydrochlorothiazide 25 mg PO DAILY losartan 50 mg PO DAILY 90 days losartan 50 mg PO DAILY metformin 500 mg PO DAILY nifedipine ER 90 mg PO DAILY 3 months nifedipine ER 30 mg PO DAILY 90 days omeprazole 40 mg (2 x 20 mg) PO DAILY Tobacco use date assessed: 01/29/24 Fall risk assessment: 1 Fall in past year Last assessed Fall Risk: 01/29/24 Dental Screening Dental Screen Date: 01/29/24 Did you have a dental visit in the last 12 months?: Yes Did you have a dental problem in the last 6 months where you did not have access to dental care?: No Was dental information given to patient?: Patient has dentist HPI f/u diabetes, HTN HPI Details 73 y/o female presents to f/u diabetes, hypertension. Last A1c 09/05/23 5.8%. She is on metformin 500mg daily. Blood pressure today 120/74, 107p. She is on losartan 50mg and nifedipine. Nephrology had stopped her nifedipine due to hx of renal stones. She follows up with them to evaluate renal cysts. Pt reports she continues taking nifedipine and has not been taking her hydrochlorothiaizde. HPI Comments History of Present Illness Details Documentation assistance for Jose Luis Roe MD, was provided by Kutris Stout,? After School Teacher on 01/29/2024 9:55 AM DYLAN. I, Dr. Roe, have read, observed, and verified documentation. [facility] Medical History Renal calculi Renal cyst UTI (urinary tract infection) S/p nephrectomy Surgical History S/P cholecystectomy Hx of cataract surgery S/P PATRICIA-BSO Family History Father Stroke Cancer Mother Cancer HTN (hypertension) Social History Housing: House Patient Tobacco Use Status: Former Tobacco user e-Cigarette/Vaping Use: Never Used Second Hand Smoke Exposure: No service: No Current occupational status: retired Current occupational exposures/hazards: No Cognitive needs: No Hearing needs: No Vision needs: No Questionnaire PHQ-9 Over the last 2 weeks, how often have you been bothered by any of the following problems? 1. Little interest or pleasure in doing things: not at all 2. Feeling down, depressed, or hopeless: not at all 3. Trouble falling or staying asleep, or sleeping too much: not at all 4. Feeling tired or having little energy: not at all 5. Poor appetite or overeating: not at all 6. Feeling bad about yourself - or that you are a failure or have let yourself or your family down: not at all 7. Trouble concentrating on things, such as reading the newspaper or watching television: not at all 8. Moving or speaking so slowly that other people could have noticed. Or the opposite - being so fidgety or restless that you have been moving around a lot more than usual: not at all 9. Thoughts that you would be better off or of hurting yourself in some way: not at all Total score: 0 Depression Screening Interpretation: Negative Depression Screening Done: Yes 31940 - PHQ-9 Billing: Yes Source: Developed by Drs. Laith Green, Noelle Garcia, Eder Martin and colleagues, with an educational raj from [employer]. Thrive Questionnaire Date Thrive assessed: 01/29/24 I am a: Patient What is your living situation today?: I have a steady place to live Within the past 12 months, did the food you bought not last and you didn't have the money to get more?: Never true Within the past 12 months, did you worry whether your food would run out before you got money to buy more?: Never true Do you have trouble paying for medicines?: No Do you have trouble getting transportation to medical appointments?: No Do you have trouble paying your heating and electricity bill?: No Do you have trouble taking care of your child, family member or friend?: No Do you have trouble with day-to-day activities such as bathing, preparing meals, shopping, managing finances, etc.?: No Are you currently unemployed and looking for a job?: No Are you interested in more education?: No THRIVE Score: 0 AUDIT C Alcohol Use Questionnaire (AUDIT-C) 1. How often do you have a drink containing alcohol?: 2-3 times a week 2. How many drinks containing alcohol do you have on a typical day when you are drinking?: 1 or 2 3. How often do you have six or more drinks on one occasion?: Never Total Score: 3 MARYSE-7 AMB Questionnaire MARYSE-7 Date MARYSE - 7 assessed: 01/29/24 Feeling nervous, anxious, or on edge: 0 = Not at all Not being able to stop or control worryin = Not at all Worrying too much about different things: 0 = Not at all Trouble relaxin = Not at all Being so restless that it is hard to sit still: 0 = Not at all Becoming easily annoyed or irritable: 0 = Not at all Feeling afraid as if something awful might happen: 0 = Not at all Total MARYSE-7 score (0-4 normal; 5-9 mild; 10-14 moderate; 15-21 severe): 0 Source: Developed by Drs. Laith Green, Noelle Garcia, Eder Martin and colleagues, with an educational raj from [employer]. MARYSE-7 Assessment Billing MARYSE-7 Assessment Tool: MARYSE-7 Assessment 98474 Review of Systems Const Denies chills, Denies fatigue, Denies fever(s), Denies headache(s) and Denies weakness ENT Denies dizziness and Denies headache(s) Card Denies dyspnea Resp Denies cough, Denies dyspnea, Denies wheezing and Denies other (shortness of breath) Musc Denies numbness and Denies tingling Neuro Denies dizziness, Denies headache(s), Denies numbness, Denies tingling and Denies weakness Psych Denies anxiety and Denies depression Endo Denies fatigue Aller/Immun Denies wheezing Physical exam (Primary Care) Vital Signs: Last Vital Signs Pulse 107 H 01/29/24 09:30 BP 120/74 01/29/24 09:30 Pulse Ox 99 01/29/24 09:30 Oxygen Delivery Method Room Air 01/29/24 09:30 BMI result Body Mass Index 28.8 Tobacco/Smoking Status: Tobacco use Status Tobacco use date assessed 01/29/24 01/29/24 09:33 Patient Tobacco Use Status Former Tobacco user 01/29/24 09:33 e-Cigarette/Vaping Use Never Used 01/29/24 09:33 PHQ-9: PHQ-9 Score PHQ-9: Total score 0 01/29/24 09:39 Depression Screening Interpretation: Negative Thrive Assessment: Date of Thrive Assessment Date Thrive assessed 01/29/24 01/29/24 09:37 Const General: well developed; No acute distress Nutritional Appearance: well nourished Orientation/consciousness: patient oriented x3 HENMT Head: Yes normocephalic and Yes atraumatic Eyes General: appearance normal, both eyes and all related structures Pupils: Equal, round and reactive pupils present EOM: EOMs intact bilaterally Resp Effort & Inspection: normal respiratory effort Auscultation: clear to auscultation bilaterally Cardio Rate: tachycardic Rhythm: regular rhythm Heart sounds: S1 normal heart sound present, S2 normal heart sound present, no gallops, no murmurs and no rubs Neuro General: patient oriented x3 and gait normal Cranial nerves: Yes Equal, round and reactive pupils present Psych Affect: normal affect Results AMB Hemoglobin A1c AMB Hemoglobin A1c 6.4 % Last Edit by Laurie Moore CMA on 01/29/24 09:49 Results Reviewed Results Reviewed: Laboratory Last Values Hgb A1c (Clinic) 6.4 % (4.0-6.0) H 01/29/24 09:45 Assessment and Plan Assessment & Plan (1) Essential hypertension: Code(s): I10 - Essential (primary) hypertension Plan: Blood?pressure?is?controlled.??Goal?is?less?than?140/90 Continue?current?medication?regimen (2) Tachycardia: Code(s): R00.0 - Tachycardia, unspecified Plan: Mild?tachycardia EKG shows?normal?sinus?rhythm?with?normal?rate;?88?beats?per?minute, normal?axis,?normal?intervals,?no?hypertrophy?and?no?ST-T-wave?changes. 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
== END 2024-01-29 10:21 | disposition home or self-care (01) ==
PROVIDERS: PCP Family Medicine; Visit Provider Family Medicine
DX: I10 Essential (primary) hypertension (principal); R00.0 Tachycardia, unspecified; E11.9 Type 2 diabetes mellitus without complications; Q61.02 Congenital multiple renal cysts
CPT/HCPCS: 83036; 99214

== ENCOUNTER 2024-01-31 09:43 | Outpatient (AMB) | payer MEDICARE, BC, SELFPAY ==
--- NOTE | 2024-01-31 09:45 | HO.NEPHOV_ITS ---
HPI HPI Comments History of Present Illness Details 73-year-old woman with longstanding hyp ertension and acquired solitary left kidney with history of nephrolithiasis had been evaluated and followed up renal cyst and renal stones. While she was in her 30s she underwent nephrectomy for nonfunctioning atrophic right kidney. She has had multiple urinary tract infections . Last infections were with E coli and Klebsiella. Her recent ultrasonogram report reads as innumerable cyst replace in the left kidney. However a CT scan done a year ago did not reveal numerous cysts but there was 1 cyst. Overall she is doing well. She was started on HCTZ after D/Cing Nifedipine . SO she went back on Nifedipine and put HCTZ on hold. She has no history of flank pain, hematuria, night sweats, pedal edema, passing of grit or gravel in the urine. [facility] Medical History Renal calculi Renal cyst UTI (urinary tract infection) S/p nephrectomy Surgical History S/P cholecystectomy Hx of cataract surgery S/P PATRICIA-BSO Family History Father Stroke Cancer Mother Cancer HTN (hypertension) Social History Housing: House Patient Tobacco Use Status: Former Tobacco user e-Cigarette/Vaping Use: Never Used Second Hand Smoke Exposure: No service: No Current occupational status: retired Current occupational exposures/hazards: No Cognitive needs: No Hearing needs: No Vision needs: No Vital Signs 01/31/24 09:47 Height 5 ft 2 in Weight 160 lb 2 oz BMI 29.3 BP 140/80 H Blood Pressure Location Lt brachial Position Sitting Pulse 103 H Pulse Source Pulse Oximeter Pulse Oximetry (%) 98 Oxygen Delivery Method Room Air Physical Exam Const General: comfortable and no acute distress Orientation/consciousness: patient oriented x3 HEENT Head: Yes normocephalic Mouth: Normal oral and palatal mucosa present Eyes EOM: EOMs intact bilaterally Neck Neck: Yes supple Resp Auscultation: clear to auscultation bilaterally Cardio Jugular venous distension: no JVD Rate: regular rate GI Palpation (GI): Soft to palpation Auscultation: normal bowel sounds General: Yes no CVA tenderness Back/Spine/Pelvis Back: no CVA tenderness Skin General skin exam: no rashes or lesions noted Neuro General: patient oriented x3 and moves all extremities Extrem General: Yes no pedal edema Assessment & Plan Assessment & Plan (1) Multiple renal cysts: Code(s): 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 CT scan done in 2021 revealed 1 cyst on the left kidney however ultrasonogram done in June 2023 was reported has multiple renal cyst. It is unlikely that she would have developed multiple cyst within 1 year. However the previous ultrasonogram also with reported a questionable septic stated or complex cyst. She will require a follow-up CT scan to evaluate the renal cyst. She has had recurrent UTIs with a history of renal stones. She is hypertensive and has been on losartan and nifedipine. I re started her on hydrochlorothiazide 12.5 mg given history of renal stones. Will get a 24 hour urine collection for stone studies in the future. 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 If HR is high, she will need a Holter. If HR is still high, we shall start her on a beta be or switch nifedipine to Diltiazem. She should be on a low-sodium diet and maintain good hydration. I did not make any other medication changes but discussed all the differential diagnosis, follow-up and management strategies. Follow-up lab work ordered. Answered all question. Follow-up given. Orders: Orders Creatinine Today Q61.02 - Congenital multiple renal cysts, Z87.442 - Personal history of urinary calculi, Z90.5 - Acquired absence of kidney Blood Urea Nitrogen Today Q61.02 - Congenital multiple renal cysts, Z87.442 - Personal history of urinary calculi, Z90.5 - Acquired absence of kidney Electrolytes Today Q61.02 - Congenital multiple renal cysts, Z87.442 - Personal history of urinary calculi, Z90.5 - Acquired absence of kidney Coding Level of Care Code Est Pt Level 4 (77239) Diagnoses Multiple renal cysts Q61.02 History of kidney stones Z87.442 Acquired solitary kidney Z90.5 Results Reviewed Nephrology Results: Sodium 143 mmol/L (135-145) 01/24/24 Potassium 4.3 mmol/L (3.3-5.1) 01/24/24 Chloride 108 mmol/L (96-108) 01/24/24 Carbon Dioxide 24 mmol/L (22-29) 01/24/24 BUN 17 mg/dL (9-16) H 01/24/24 Creatinine 0.74 mg/dL (0.5-1.4) 01/24/24 Calcium 9.5 mg/dL (8.4-10.2) 10/10/23 Urine Protein Negative mg/dL (Neg-Trace) 10/10/23 Urine Creatinine 43.78 mg/dL 10/10/23
[2024-01-31 09:47] VITALS: BP 140/80; PULSE 103; O2SAT 98; BMI 29.3
== END 2024-01-31 10:07 | disposition home or self-care (01) ==
PROVIDERS: PCP Family Medicine; Visit Provider Internal Medicine Nephrology
DX: Q61.02 Congenital multiple renal cysts (principal); Z87.442 Personal history of urinary calculi; Z90.5 Acquired absence of kidney
CPT/HCPCS: 99214

== ENCOUNTER → 2024-01-31 09:43 | Outpatient (BNVA) | payer MEDICARE, BC, SELFPAY | PROVIDERS: PCP Family Medicine; Visit Provider Internal Medicine Nephrology | DX: Q61.02 Congenital multiple renal cysts (principal); Z87.442 Personal history of urinary calculi; Z90.5 Acquired absence of kidney | CPT/HCPCS: 99212 ==

== ENCOUNTER 2024-03-04 07:13 | Outpatient (REF) | payer MEDICARE, BC, SELFPAY ==
--- NOTE | ~2024-03-04 | MM_ITS ---
EXAMINATION: BONE DENSITOMETRY CLINICAL INDICATION: Other specified personal risk factors, not elsewhere classified. COMPARISON: Previous BD dated 11/06/2019 and baseline BD dated 11/09/2010. TECHNIQUE: Using a [employer] DXA System (software version: 13.1) manufactured by [employer], dual-energy x-ray absorptiometry was performed of the lumbar spine and left hip. The images are of good technical quality. Summary results are attached. FINDINGS: LEFT FEMUR, NECK: Current: BMD 0.713 g/cm2, Z-score -0.8, T-score -2.3, osteopenia. Prior: BMD 0.704 g/cm2. Baseline: BMD 0.717 g/cm2. LEFT FEMUR, TOTAL: Current: BMD 0.786 g/cm2, Z-score -0.4, T-score -1.8, osteopenia, 3.1% decrease from previous, 2.7% decrease from baseline (<5% change is not significant). Prior: BMD 0.811 g/cm2. Baseline: BMD 0.808 g/cm2. AP SPINE L1-L4: Current: BMD 1.023 g/cm2, Z-score 0.1, T-score -1.3, osteopenia, 1.0% increase from previous, 2.4% increase from baseline (<5% change is not significant). Prior: BMD 1.013 g/cm2. Baseline: BMD 0.999 g/cm2. IDENTIFIED RISK FACTORS: Early menopause, secondary osteoporosis, hysterectomy, bilateral oophorectomy. HISTORY OF FRACTURE: None listed. MEDICATIONS: Multivitamin. MM/XR DEXA axial skeleton IMPRESSION: 1. DIAGNOSIS: Osteopenia based on the lowest T-score value of -2.3 in the femoral neck applying World Health Organization criteria. 2. 10-YEAR FRACTURE RISK PREDICTION, FRAX: Major osteoporotic fracture (clinical spine, forearm, hip or shoulder) 14.1%. Hip fracture 3.5%. 3. Treatment Recommendations: NOF guidelines recommend consideration for treatment in postmenopausal women and men age 50 and older presenting with the following: -A hip or vertebral (clinical or morphometric) fracture. -T-score less than or equal to -2.5 at the femoral neck or spine after appropriate evaluation to exclude secondary causes. -Low bone mass at the hip or spine and a 10-year fracture probability by FRAX of greater than or equal to 3% for hip fracture or greater than or equal to 20% for major osteoporotic fracture based on the [place] adapted WHO algorithm. 4. Other Recommendations: All treatment decisions require clinical judgment and consideration of individual patient factors, including patient preferences, comorbidities, previous drug use, risk factors not captured in the FRAX model (e.g. frailty, falls, vitamin D deficiency, increased bone turnover, interval significant decline in bone density) and possible under or overestimation of fracture risk by FRAX. Additional medical evaluation for secondary cause of low bone mineral density may be appropriate. FUTURE SCAN RECOMMENDATION: People with diagnosed cases of osteoporosis or at high risk for fracture should have regular bone mineral density tests. For patients eligible for Medicare, routine testing is allowed once every 2 years. The testing frequency can be increased to one year for patients who have rapidly progressing disease, those who are receiving or discontinuing medical therapy to restore bone mass, or have additional risk factors.
== END 2024-03-04 07:14 | disposition home or self-care (01) ==
LOC: HO.MAMMO 07:13
PROVIDERS: PCP Family Medicine; Visit Provider Family Medicine
DX: Z12.31 Encounter for screening mammogram for malignant neoplasm of breast (principal); Z13.820 Encounter for screening for osteoporosis; Z78.0 Asymptomatic menopausal state; M81.0 Age-related osteoporosis without current pathological fracture
CPT/HCPCS: 77063; 77067; 77080

== ENCOUNTER → 2024-03-04 08:15 | Outpatient (BNV) | payer MEDICARE, BC, SELFPAY | PROVIDERS: PCP Family Medicine; Visit Provider Radiology Diagnostic Radiology | DX: Z12.31 Encounter for screening mammogram for malignant neoplasm of breast (principal) | CPT/HCPCS: 77063; 77067 ==

== ENCOUNTER 2024-03-31 09:23 | Outpatient (AMB) | payer MEDICARE, BC, SELFPAY ==
[2024-03-31 09:35] VITALS: BP 138/78; PULSE 101; O2SAT 95; BMI 28.9
--- NOTE | 2024-03-31 09:35 | A.OFFVIS_ITS ---
Vital Signs 03/31/24 09:35 Height 5 ft 2 in Weight 158 lb BMI 28.9 BP 138/78 Blood Pressure Location Lt brachial Position Sitting Pulse 101 H Pulse Source Pulse Oximeter Pulse Oximetry (%) 95 Oxygen Delivery Method Room Air Intake Visit Reasons: cough Allergies No Known Allergies [No Known Allergies*] Allergy (Verified 03/31/24 09:38) HPI HPI cough: Details: 74-year-old lady, former minimal smoker, quit over 35 years prior with underlying history of chronic cough ongoing for 5 years, intermittently productive of small amount of clear sputum.? Patient continues to use Prilosec now once a day with good control of her underlying GERD.?She continues to use CPAP with good control of her underlying sleep apnea symptoms. patient has developed environmental allergies that worsened her underlying asthma. She denies acute exacerbations. [facility] Medical History Renal calculi Renal cyst UTI (urinary tract infection) S/p nephrectomy Surgical History S/P cholecystectomy Hx of cataract surgery S/P PATRICIA-BSO Family History Father Stroke Cancer Mother Cancer HTN (hypertension) Social History Housing: House Patient Tobacco Use Status: Former Tobacco user e-Cigarette/Vaping Use: Never Used Second Hand Smoke Exposure: No service: No Current occupational status: retired Current occupational exposures/hazards: No Cognitive needs: No Hearing needs: No Vision needs: No Review of Systems Const Denies daytime sleepiness, Denies excessive sweating, Denies fatigue, Denies fever(s), Denies lethargy, Denies malaise, Denies night sweats, Denies snoring and Denies weight loss Eyes Denies blurry vision and Reports itchy eyes ENT Denies nasal congestion, Denies post nasal drip, Denies sinus pain, Denies sinus pressure and Denies other ( Thrush) Card Denies chest pain, Denies pedal edema, Denies dyspnea, Denies orthopnea and Denies paroxysmal nocturnal dyspnea Resp Denies cough, Denies hemoptysis, Denies excessive phlegm production, Denies dyspnea, Denies snoring and Denies wheezing GI Denies abdominal pain and Denies heartburn Musc Denies myalgias, Denies arthralgias and Denies joint swelling Skin/Breast Denies rash Neuro Denies memory loss and Denies seizure-like activity Psych Denies abnormal sleep pattern, Denies anxiety and Denies memory loss Endo Denies excessive sweating, Denies fatigue and Denies heat intolerance Agustín/Lymph Denies easy bruising Aller/Immun Reports itchy eyes, Reports seasonal rhinorrhea and Denies wheezing Physical Exam Vital Signs: Last Vital Signs Pulse 101 H 03/31/24 09:35 BP 138/78 03/31/24 09:35 Pulse Ox 95 03/31/24 09:35 Oxygen Delivery Method Room Air 03/31/24 09:35 BMI result Body Mass Index 28.9 Const General: no acute distress and alert Nutritional Appearance: not obese Orientation/consciousness: Other orientation findings ( oriented) HEENT Head: Yes atraumatic Eyes General: appearance normal, both eyes and all related structures Sclerae: sclerae normal EOM: EOMs intact bilaterally Neck Neck: Yes supple Lymphatic: no lymphadenopathy noted Resp Effort & Inspection: normal respiratory effort and no use of accessory muscles Auscultation: clear to auscultation bilaterally Cardio Rate: regular rate Rhythm: regular rhythm Heart sounds: no gallops, no murmurs and no rubs Skin General skin exam: other ( warm) Extrem General: No clubbing, No cyanosis and No edema Assessment & Plan Assessment & Plan (1) ERIC (obstructive sleep apnea): Code(s): G47.33 - Obstructive sleep apnea (adult) (pediatric) Category: Medical Plan: Well controlled on current CPAP therapy. Continue CPAP therapy. (2) Asthma: Code(s): J45.909 - Unspecified asthma, uncomplicated Category: Medical Plan: Worsening symptoms secondary to development of seasonal allergies, will switch Serevent to Breo and add nasal ipratropium bromide. (3) GERD (gastroesophageal reflux disease): Code(s): K21.9 - Gastro-esophageal reflux disease without esophagitis Category: Medical Plan: Well controlled on omeprazole. Continue current regimen. Medications: New ipratropium bromide administer into each nostril 2 sprays intranasal TID-QID PRN 15 mL 3RF allergy symptoms fluticasone furoate-vilanterol 200-25 mcg/dose (Breo Ellipta) 1 inh inhalation DAILY 1 inhaler 6RF Coding Level of Care Code Est Pt Level 4 (23261) Diagnoses ERIC (obstructive sleep apnea) G47.33 Asthma J45.909 GERD (gastroesophageal reflux disease) K21.9
== END 2024-03-31 09:52 | disposition home or self-care (01) ==
PROVIDERS: PCP Family Medicine; Visit Provider Internal Medicine Pulmonary Disease
DX: G47.33 Obstructive sleep apnea (adult) (pediatric) (principal); J45.909 Unspecified asthma, uncomplicated; K21.9 Gastro-esophageal reflux disease without esophagitis
CPT/HCPCS: 99214

== ENCOUNTER → 2024-03-31 09:23 | Outpatient (BNVA) | payer MEDICARE, BC, SELFPAY | PROVIDERS: PCP Family Medicine; Visit Provider Internal Medicine Pulmonary Disease | DX: J45.909 Unspecified asthma, uncomplicated (principal); G47.33 Obstructive sleep apnea (adult) (pediatric); K21.9 Gastro-esophageal reflux disease without esophagitis | CPT/HCPCS: 99212 ==

== ENCOUNTER 2024-05-13 08:57 | Outpatient (AMB) | payer MEDICARE, BC, SELFPAY ==
--- NOTE | 2024-05-13 08:50 | A.OFFVIS_ITS ---
Vital Signs 05/13/24 08:59 Height 5 ft 2 in Weight 158 lb 6 oz BMI 29.0 BP 140/72 H Blood Pressure Location Rt brachial Position Sitting Pulse 83 Pulse Source Pulse Oximeter Pulse Oximetry (%) 96 Oxygen Delivery Method Room Air Intake Visit Reasons: asthma, cough Allergies No Known Allergies [No Known Allergies*] Allergy (Verified 05/13/24 09:01) HPI HPI asthma, cough: Details: Holley is pleasant 74-year-old female, former minimal smoker, quit over 35 years ago with underlying asthma, ERIC on CPAP and GERD, controlled on Prilosec. ?At baseline symptoms are moderately controlled on Breo and albuterol MDI. She is followed by Dr. Aburto and presents today for an acute visit. She reports a productive cough with whitish mucous and wheezing that has been present for the past four months. She notes that it is worse at night and attributes symptoms to allergies. She denies associated chest tightness or dyspnea. She also admits to increased post nasal drip, minimally improved with ipratropium. She currently using singulair and was using a daily anithistamine months ago but had discont inued. [facility] Medical History Renal calculi Renal cyst UTI (urinary tract infection) S/p nephrectomy Surgical History S/P cholecystectomy Hx of cataract surgery S/P PATRICIA-BSO Family History Father Stroke Cancer Mother Cancer HTN (hypertension) Social History Housing: House Patient Tobacco Use Status: Former Tobacco user e-Cigarette/Vaping Use: Never Used Second Hand Smoke Exposure: No service: No Current occupational status: retired Current occupational exposures/hazards: No Cognitive needs: No Hearing needs: No Vision needs: No Review of Systems Const Denies chills, Denies excessive sweating, Denies fever(s), Denies headache(s) and Denies night sweats Eyes Denies dry eyes and Denies irritation ENT Reports Normal hearing present, Denies headache(s), Denies nasal congestion, Denies nasal discharge and Denies sore throat Card Denies chest pain, Denies chest pain at rest, Denies chest pain with activity, Denies claudication, Denies leg edema, Denies dyspnea, Denies dyspnea on exertion, Denies orthopnea and Denies paroxysmal nocturnal dyspnea Resp Denies chest congestion, Denies excessive phlegm production, Denies pain on inspiration, Denies pain with cough, Denies dyspnea, Denies dyspnea on exertion, Denies stridor and Denies wheezing Musc Denies myalgias Neuro Reports Normal hearing present and Denies headache(s) Endo Denies excessive sweating Agustín/Lymph Denies lymphadenopathy Aller/Immun Denies seasonal rhinorrhea and Denies wheezing Physical Exam Vital Signs: Last Vital Signs Pulse 83 05/13/24 08:59 BP 140/72 H 05/13/24 08:59 Pulse Ox 96 05/13/24 08:59 Oxygen Delivery Method Room Air 05/13/24 08:59 BMI result Body Mass Index 29.0 Const General: cooperative, healthy appearing, comfortable, no acute distress, well developed and alert Orientation/consciousness: patient oriented x3 Limitations: no limitations HEENT Head: Yes normal to inspection, Yes normocephalic and Yes atraumatic Ears: hearing grossly normal bilaterally and external ears normal Eyes General: appearance normal, both eyes and all related structures Eyelids: Yes eyelids normal Sclerae: sclerae normal EOM: EOMs intact bilaterally Neck Neck: Yes normal visual inspection and Yes no lymphadenopathy Lymphatic: no lymphadenopathy noted Chest Chest palpation & inspection: normal inspection of the chest Resp Effort & Inspection: normal respiratory effort, able to speak in complete sentences, no audible wheezes, no cough, no stridor, not tachypneic, no tripod positioning and no use of accessory muscles Auscultation: clear to auscultation bilaterally Cardio Jugular venous distension: no JVD Rate: regular rate Rhythm: regular rhythm Skin Other: warm, dry General skin exam: no rashes or lesions noted Neuro General: patient oriented x3 Cranial nerves: Yes Normal hearing present Cognition (Neuro): normal cognition Gait exam (Neuro): Normal gait present Extrem General: Yes normal to inspection, Yes capillary refill normal, Yes no clubbing, cyanosis or edema and Yes no pedal edema Psych Appearance: grossly normal and well kempt Speech and movement: Normal speech and movement present and Clear speech present Affect: normal affect Attitude: cooperative Thought process: Normal thought process present Thought content: Normal thought content present Insight: Good insight present (Psych) Judgement: Good judgement present (Psych) Assessment & Plan Assessment & Plan (1) Asthma: Code(s): J45.909 - Unspecified asthma, uncomplicated Category: Medical Plan Discussed with patient symptoms are consistent with an allergic contribution. Respiratory exam unremarkable. Advised adding a daily antihistamine to regimen and will send in albuterol PRN. She is aware if symptoms worsen to call office. All questions were answered and patient is in agreement of plan. Will follow up for her regularly scheduled appointment with Dr. Aburto or sooner if needed. Medications: New albuterol sulfate 90 mcg/actuation 2 puffs inhalation Q4-6H PRN 1 ea 3RF shortness of breath or wheezing Coding Level of Care Code Est Pt Level 3 (67826) Diagnoses Asthma J45.909
[2024-05-13 08:59] VITALS: BP 140/72; PULSE 83; O2SAT 96; BMI 29.0
== END 2024-05-13 09:17 | disposition home or self-care (01) ==
PROVIDERS: PCP Family Medicine; Visit Provider Nurse Practitioner Family
DX: J45.909 Unspecified asthma, uncomplicated (principal)
CPT/HCPCS: 99213

== ENCOUNTER → 2024-05-13 08:57 | Outpatient (BNVA) | payer MEDICARE, BC, SELFPAY | PROVIDERS: PCP Family Medicine; Visit Provider Nurse Practitioner Family | DX: J45.909 Unspecified asthma, uncomplicated (principal) | CPT/HCPCS: 99212 ==

== ENCOUNTER 2024-05-26 08:39 | Outpatient (REF) | payer MEDICARE, BC, SELFPAY ==
[2024-05-26 11:14] LABS: Appearance Urine Clear; Color Urine Yellow; Glucose Urine UA Negative (Negative); Leukocyte Esterase Urine Moderate (2+) (Negative); Nitrite Urine Negative (Negative); PH 6.5 (5.0-9.0); Specific Gravity - Urine 1.015 (1.005-1.025); UMIC TRIGGER UA YES; Urine Blood Negative (Negative); Urine Ketones Negative (Negative); Urine Protein Negative (Neg-Trace)
[2024-05-26 11:14] LABS: MANUAL DIFF FLAG NO
[2024-05-26 11:16] LABS: Bacteria Urine None Seen (None Seen); RBC Urine 0-2 /HPF (0-2); Squamous Epithelial Cell Urine >20 /HPF (0-2)
[2024-05-26 11:30] LABS: Basophils Percent Auto 0.6 % (0-2); Eosinophils Absolute Auto 0.1 X10*3/uL (0.0-0.4); Hematocrit 41.9 % (37.0-47.0); Hemoglobin 14.3 g/dl (12.0-16.0); Imm Gran Abs Auto 0.01 X10*3/uL (0.00-0.03); Imm Gran Pct Auto 0.1 % (0.0-0.4); Lymphocytes Absolute Auto 1.4 X10*3/uL (1.2-4.9); Lymphocytes Percent Auto 20.4 % (20-40); Mean Corpuscular HGB Conc 34.1 g/dl (31.0-35.0); Mean Corpuscular Hemoglobin 29.9 pg (27.0-33.0); Mean Corpuscular Volume 87.7 fL (80.0-98.0); Mean Platelet Volume 10.7 fL (9.4-12.3); Monocytes Absolute Auto 0.5 X10*3/uL (0.1-1.2); Monocytes Percent Auto 7.6 % (2-11); Neutrophils Absolute Auto 4.8 x10*3/uL (2.0-8.3); Neutrophils Percent Auto 70.3 % (45-73); Platelet Count 345 X10*3/uL (160-400); Red Blood Count 4.78 X10*6/uL (4.20-5.50); Red Cell Distribution Width 12.1 % (11.0-16.0); White Blood Count 6.8 X10*3/uL (4.8-10.8)
[2024-05-26 11:43] LABS: Estimated Average Glucose 128 mg/dL; Hemoglobin A1c % 6.1 % (<6.0)
[2024-05-26 11:51] LABS: Alanine Aminotransferase 22 U/L (0-31); Albumin Level 4.1 g/dL (3.5-5.0); Alkaline Phosphatase 82 U/L (39-117); Anion Gap 12 (12-20); Aspartate Amino Transferase 15 U/L (5-31); Bilirubin Total 0.5 mg/dL (0.0-1.0); Blood Urea Nitrogen 12 mg/dL (9-16); Calcium 10.1 mg/dL (8.4-10.2); Carbon Dioxide 28 mmol/L (22-29); Chloride 104 mmol/L (96-108); Cholesterol 166 mg/dL (<200); Estimated Glomerular Filt Rate > 60; Glucose Fasting 128 mg/dL (60-99); HDL Cholesterol 54 mg/dL (>40); LDL Cholesterol Calculated 87 mg/dL (<100); Potassium 3.9 mmol/L (3.3-5.1); Sodium 140 mmol/L (135-145); Total Protein 6.9 g/dL (6.5-8.0); Triglycerides 129 mg/dL (<150)
[2024-05-26 12:01] LABS: Creatinine Urine 138.87 mg/dL; Microalbum/Creatinine Ratio Ur 7.2 ug/mg cr (<30)
[2024-05-26 12:07] LABS: TSH reflex Free T4 0.57 uIU/mL (0.32-4.0)
== END 2024-05-26 08:40 | disposition home or self-care (01) ==
LOC: HO.WFDLDS 08:39
PROVIDERS: Referring Provider Internal Medicine Nephrology; Visit Provider Family Medicine
DX: Z00.00 Encounter for general adult medical examination without abnormal findings (principal); I10 Essential (primary) hypertension; R73.01 Impaired fasting glucose
CPT/HCPCS: 36415; 80053; 80061; 81001; 82043; 82570; 83036; 84443; 85025

== ENCOUNTER 2024-06-01 11:56 | Outpatient (AMB) | payer MEDICARE, BC, SELFPAY ==
--- NOTE | 2024-06-01 12:02 | A.OFFPC_ITS ---
Vital Signs 06/01/24 12:11 Height 5 ft 2 in Weight 158 lb BMI 28.9 BP 110/66 Blood Pressure Location Lt brachial Position Sitting Respiration 16 Pulse 117 H Pulse Source Pulse Oximeter Temp 97.9 F Temp Source Tympanic Pulse Oximetry (%) 98 Oxygen Delivery Method Room Air Intake Visit Reasons: Extended?exam?with?follow-up?labs?and?health? Intake Note: CPE follow up on labs Is last menstrual period known: No Post menopausal: Yes Patient : No Allergies No Known Allergies [No Known Allergies*] Allergy (Verified 06/01/24 12:03) Medication List - Last Reconciled 06/01/24 by Jose Luis Roe MD albuterol sulfate 90 mcg/actuation 2 puffs inhalation Q4-6H PRN atorvastatin 40 mg PO DAILY 90 days fluticasone furoate-vilanterol 200-25 mcg/dose (Breo Ellipta) 1 inh inhalation DAILY ipratropium bromide 2 sprays intranasal TID-QID PRN losartan 50 mg PO DAILY 90 days metformin 500 mg PO DAILY nifedipine ER 30 mg PO DAILY 90 days nifedipine ER 90 mg PO DAILY 3 months omeprazole 40 mg (2 x 20 mg) PO DAILY Tobacco use date assessed: 01/29/24 Fall risk assessment: No Falls in past year Last assessed Fall Risk: 06/01/24 Dental Screening Dental Screen Date: 06/01/24 Did you have a dental visit in the last 12 months?: Yes Did you have a dental problem in the last 6 months where you did not have access to dental care?: No Was dental information given to patient?: Patient has dentist HPI Extended?exam?with?follow-up?labs?and?health? HPI Details 74 y/o female presents for an extended e xam with f/u labs and health maintenance. Labs drawn 05/26/24. Reviewed labs with pt. A1c 6.1%. She is on metformin 500mg daily. Triglycerides 129. TC 166. LDL 87. HDL 54. She is on artovastatin 40mg daily. A1c today 06/01/24 6.4%. Blood pressure today is 110/66, 117p. She is on nifedipine, hydrochlorothiazide. Follows up with Dr. Rueda for multiple renal cysts. F/u with pulmonology - they state asthma could have an allergy component to it. She notes she frequently wakes up throughout the night coughing. [facility] Medical History Renal calculi Renal cyst UTI (urinary tract infection) S/p nephrectomy Surgical History S/P cholecystectomy Hx of cataract surgery S/P PATRICIA-BSO Family History Father Stroke Cancer Mother Cancer HTN (hypertension) Social History (Updated 06/01/24 @ 12:06 by Christo Thomas) Housing: House Patient Tobacco Use Status: Former Tobacco user e-Cigarette/Vaping Use: Never Used Second Hand Smoke Exposure: No service: No Current occupational status: retired Current occupational exposures/hazards: No Cognitive needs: No Hearing needs: No Vision needs: No Questionnaire PHQ-9 Over the last 2 weeks, how often have you been bothered by any of the following problems? 1. Little interest or pleasure in doing things: not at all 2. Feeling down, depressed, or hopeless: not at all 3. Trouble falling or staying asleep, or sleeping too much: not at all 4. Feeling tired or having little energy: not at all 5. Poor appetite or overeating: not at all 6. Feeling bad about yourself - or that you are a failure or have let yourself or your family down: not at all 7. Trouble concentrating on things, such as reading the newspaper or watching t elevision: not at all 8. Moving or speaking so slowly that other people could have noticed. Or the opposite - being so fidgety or restless that you have been moving around a lot more than usual: not at all 9. Thoughts that you would be better off or of hurting yourself in some way: not at all Total score: 0 Depression Screening Interpretation: Negative Depression Screening Done: Yes 76205 - PHQ-9 Billing: Yes Source: Developed by Drs. Laith Green, Noelle Garcia, Eder Martin and colleagues, with an educational raj from [employer]. Thrive Questionnaire Date Thrive assessed: 06/01/24 I am a: Patient What is your living situation today?: I have a steady place to live Within the past 12 months, did the food you bought not last and you didn't have the money to get more?: Never true Within the past 12 months, did you worry whether your food would run out before you got money to buy more?: Never true Do you have trouble paying for medicines?: No Do you have trouble getting transportation to medical appointments?: No Do you have trouble paying your heating and electricity bill?: No Do you have trouble taking care of your child, family member or friend?: No Do you have trouble with day-to-day activities such as bathing, preparing meals, shopping, managing finances, etc.?: No Are you currently unemployed and looking for a job?: No Are you interested in more education?: No Please select the resources that you would like help with: None Currently or been in a relationship where the following occur: No concerns reported THRIVE Score: 0 AUDIT C Alcohol Use Questionnaire (AUDIT-C) 1. How often do you have a drink containing alcohol?: 2-3 times a week 2. How many drinks containing alcohol do you have on a typical day when you are drinking?: 3 or 4 3. How often do you have six or more drinks on one occasion?: Weekly Total Score: 7 Score Reviewed/Action Taken: Yes MARYSE-7 AMB Questionnaire MARYSE-7 Date MARYSE - 7 assessed: 06/01/24 Feeling nervous, anxious, or on edge: 0 = Not at all Not being able to stop or control worryin = Not at all Worrying too much about different things: 0 = Not at all Trouble relaxin = Not at all Being so restless that it is hard to sit still: 0 = Not at all Becoming easily annoyed or irritable: 0 = Not at all Feeling afraid as if something awful might happen: 0 = Not at all Total MARYSE-7 score (0-4 normal; 5-9 mild; 10-14 moderate; 15-21 severe): 0 Source: Developed by Drs. Laith Green, Noelle Garcia, Eder Martin and colleagues, with an educational raj from [employer]. MARYSE-7 Assessment Billing MARYSE-7 Assessment Tool: MARYSE-7 Assessment 61883 ACT Questionnaire In the past 4 weeks, how much of the time did your asthma keep you from getting as much done at work, school or at home?: A little of the time During the past 4 weeks, how often have you had shortness of breath?: 1-2 times a week During the past 4 weeks, how often did your asthma symptoms wake you up at night or earlier than usual in the morning?: 4 or more nights a week During the past 4 weeks, how often have you had to use your rescue inhaler or nebulizer medication?: 2-3 times a week How would you rate your asthma control during the past 4 weeks?: Well controlled ACT Interpretation: Positive Score: 16 Review of Systems Const Denies chills, Denies fatigue, Denies fever(s), Denies headache(s) and Denies weakness Eyes Denies change in vision ENT Denies dizziness, Denies headache(s), Denies hearing loss, Denies nasal congestion, Denies sinus pain, Denies sinus pressure and Denies sore throat Card Denies chest pain, Denies lightheadedness, Denies dyspnea and Denies other (palpitations) Resp Reports cough, Denies dyspnea and Denies wheezing GI Denies abdominal pain, Denies melena, Denies hematochezia, Denies change in bowel habits, Denies dyspepsia and Denies nausea Denies hematuria and Denies dysuria Musc Denies abnormal gait, Denies myalgias, Denies arthralgias, Denies numbness and Denies tingling Skin/Breast Denies rash, Denies unusual bruising and Denies wounds Neuro Denies abnormal gait, Denies dizziness, Denies headache(s), Denies memory loss, Denies numbness, Denies Sensory deficit (Neuro), Denies tingling and Denies weakness Psych Denies anxiety, Denies depression and Denies memory loss Endo Denies cold intolerance, Denies fatigue, Denies heat intolerance, Denies polydipsia and Denies polyuria Agustín/Lymph Denies easy bleeding and Denies easy bruising Aller/Immun Denies wheezing Physical exam (Primary Care) Vital Signs: Last Vital Signs Temp 97.9 F 06/01/24 12:11 Pulse 117 H 06/01/24 12:11 Resp 16 06/01/24 12:11 BP 110/66 06/01/24 12:11 Pulse Ox 98 06/01/24 12:11 Oxygen Delivery Method Room Air 06/01/24 12:11 BMI result Body Mass Index 28.9 Tobacco/Smoking Status: Tobacco use Status Tobacco use date assessed 01/29/24 06/01/24 12:16 Patient Tobacco Use Status Former Tobacco user 06/01/24 12:16 e-Cigarette/Vaping Use Never Used 06/01/24 12:16 PHQ-9: PHQ-9 Score PHQ-9: Total score 0 06/01/24 12:16 Depression Screening Interpretation: Negative Thrive Assessment: Date of Thrive Assessment Date Thrive assessed 06/01/24 06/01/24 12:16 Currently or been in a relationship where the following occur: No concerns re ported Const General: no acute distress, well developed, alert and awake Nutritional Appearance: well nourished Orientation/consciousness: patient oriented x3 HENMT Head: Yes normocephalic and Yes atraumatic Ears: hearing grossly normal bilaterally and TM's normal bilaterally General nose exam: Normal external nose present and Normal nares present Mouth: Normal oral and palatal mucosa present and moist mucous membranes Teeth and gingiva: dentition normal Throat: Yes posterior oropharynx normal Eyes General: appearance normal, both eyes and all related structures Pupils: Equal, round and reactive pupils present and Pupil accommodation reflex normal EOM: EOMs intact bilaterally Neck Neck: Yes normal visual inspection, Yes no lymphadenopathy and Yes trachea midline Thyroid: Thyroid normal Carotids: no bruits Lymphatic: no lymphadenopathy noted Chest Chest palpation & inspection: normal inspection of the chest Resp Effort & Inspection: normal respiratory effort Auscultation: clear to auscultation bilaterally Cardio Rate: tachycardic Rhythm: regular rhythm Heart sounds: S1 normal heart sound present, S2 normal heart sound present, no gallops, no murmurs and no rubs Bruits: no abdominal aortic bruits and no carotid bruits GI Palpation (GI): No Abdominal aortic bruit present, Soft to palpation, nontender, No hepatosplenomegaly present and No Rebound tenderness present Auscultation: normal bowel sounds General: Yes no CVA tenderness Back/Spine/Pelvis Back: no CVA tenderness Cervical Spine: cervical ROM normal and No Cervical spine tenderness Thoracic/Lumbar Spine: thoraco-lumbar ROM normal, No pain with thoraco-lumbar ROM, No thoracic spinal tenderness and No lumbar spinal tenderness Skin Lesions: no lesions Rashes: no rashes Trauma: no lacerations or abrasions Wounds: no wounds Nails: normal Neuro General: patient oriented x3 Cranial nerves: Yes Equal, round and reactive pupils present Cognition (Neuro): normal cognition Gait exam (Neuro): Normal gait present Motor exam (neuro): 5/5 motor strength present throughout Sensory Exam: No Sensory deficit (Neuro) Deep tendon reflexes (DTR's): Right patellar reflex intensity grade: 2+ and Left patellar reflex intensity grade: 2+ Extrem General: Yes normal to inspection and No edema Psych Appearance: grossly normal Affect: normal affect Attitude: cooperative Thought process: Normal thought process present Assessment and Plan Assessment & Plan (1) Diabetes type 2, controlled: Code(s): E11.9 - Type 2 diabetes mellitus without complications Plan: A1c?less?than?6.5%; good?control.??Goal?is?less?than?7.0% Continue?metformin?and?diabetic?diet Encouraged?exercise (2) Essential hypertension: Code(s): I10 - Essential (primary) hypertension Plan: Blood?pressure?is?controlled.??Goal?is?less?than?140/90 Continue?current?medication (3) Hyperlipidemia: Code(s): E78.5 - Hyperlipidemia, unspecified Plan: Lipids?are?controlled. Continue?atorvastatin (4) Screening for colon cancer: Code(s): Z12.11 - Encounter for screening for malignant neoplasm of colon Plan: Patient?had?colonoscopy?with?D r.?Loya.??She?believes?this?was?less?than?10?years?ago?and?that?she?was?told?to ?follow-up?in?10?years?or?that?she?was?all?finished. Will?request?report?and?we?can?discuss?at?a?subsequent?visit (5) Asthma: Code(s): J45.909 - Unspecified asthma, uncomplicated Plan: Ongoing?asthma?with?cough?and?wheeze Continue?inhaled?medications?as?prescribed Follow-up?with?pulmonology Advised?hypoallergenic?bedding?covers?and?can?also?consider?HEPA?filter.??Can?al so?consider?humidified?air?in?the?winter She?is?on?omeprazole?which?had?helped?initially Will?give?her?a?short?course?of?famotidine?at?bedtime - if?this?improves?things,?would?refer?her?to?GI (6) Osteopenia: Code(s): M85.80 - Other specified disorders of bone density and structure, unspecified site Plan: Encouraged?good?sources?of?calcium?and?vitamin-D Will?check?her?vitamin-D?level She?will?talk?to?her?microbiological lab technician?regarding?calcium?supplementation?as?she?has?a ?history?of?renal?stone (7) Chronic cough: Code(s): R05 - Cough Plan: As?above (8) GERD (gastroesophageal reflux disease): Code(s): K21.9 - Gastro-esophageal reflux disease without esophagitis Plan: As?above (9) Tachycardia: Code(s): R00.0 - Tachycardia, unspecified Plan: Prior?EKG?was?fine Increase?hydration Will?follow (10) Multiple renal cysts: Code(s): Q61.02 - Congenital multiple renal cysts Plan: Being?closely?followed?by?Nephrology?and?has?upcoming?appointment Follow-up?with?nephrology?as?recommended (11) Screening for breast cancer: Code(s): Z12.39 - Encounter for other screening for malignant neoplasm of breast Plan: Mammogram?in?May?was?negative?for?malignancy Continue?annual?screen (12) Adult general medical exam: Code(s): Z00.00 - Encounter for general adult medical examination without abnormal findings Plan: 74-year-old?female?presents?for?extended?exam Encouraged?healthy?diet?with?active?lifestyle?and?plenty?of?exercise Orders: Orders Comprehensive [place]. Panel Fast Today Z00.00 - Encounter for general adult medical examination without abnormal findings Vitamin D 25-OH Total Today E55.9 - Vitamin D deficiency, unspecified Medications: New famotidine 20 mg PO BEDTIME 14 days 14 tabs 0RF Coding Level of Care Code Est Pt Level 4 (88619) Diagnoses Diabetes type 2, controlled E11.9 Essential hypertension I10 Hyperlipidemia E78.5 Screening for colon cancer Z12.11 Asthma J45.909 Osteopenia M85.80 Chronic cough R05 GERD (gastroesophageal reflux disease) K21.9 Tachycardia R00.0 Multiple renal cysts Q61.02 Screening for breast cancer Z12.39 Adult general medical exam Z00.00 Additional Codes MARYSE-7 Assessment Billing - MARYSE-7 Assessment Tool: MARYSE-7 Assessment 21660 ([id number])
[2024-06-01 12:11] VITALS: BP 110/66; PULSE 117; RESP 16; TEMP 36.6; O2SAT 98; BMI 28.9
== END 2024-06-01 12:55 | disposition home or self-care (01) ==
PROVIDERS: PCP Family Medicine; Visit Provider Family Medicine
DX: E11.69 Type 2 diabetes mellitus with other specified complication (principal); I10 Essential (primary) hypertension; E78.5 Hyperlipidemia, unspecified; Z12.11 Encounter for screening for malignant neoplasm of colon; J45.909 Unspecified asthma, uncomplicated; M85.80 Other specified disorders of bone density and structure, unspecified site; R05.9 Cough, unspecified; K21.9 Gastro-esophageal reflux disease without esophagitis; R00.0 Tachycardia, unspecified; Q61.02 Congenital multiple renal cysts; Z12.39 Encounter for other screening for malignant neoplasm of breast
CPT/HCPCS: 99214

== ENCOUNTER 2024-06-29 12:02 | Outpatient (AMB) | payer MEDICARE, BC, SELFPAY ==
[2024-06-29 12:04] VITALS: BP 120/70; PULSE 119; O2SAT 96; BMI 28.9
--- NOTE | 2024-06-29 12:04 | HO.NEPHOV ---
Vital Signs 06/29/24 12:04 Height 5 ft 2 in Weight 158 lb BMI 28.9 BP 120/70 Blood Pressure Location Rt brachial Position Sitting Pulse 119 H Pulse Source Pulse Oximeter Pulse Oximetry (%) 96 Oxygen Delivery Method Room Air Intake Visit Reasons: Acquired solitary kidney/ 4 MO FU User Support Specialist Required: No Accompanied by: Self / Same As Patient Allergies No Known Allergies [No Known Allergies*] Allergy (Verified 06/29/24 12:06) HPI Comments Details: 74-year-old woman with longstanding hypertension and acquired solitary left kidney with history of nephrolithiasis had been evaluated and followed up renal cyst and renal stones. While she was in her 30s she underwent nephrectomy for nonfunctioning atrophic right kidney. She has had multiple urinary tract infections . Her recent ultrasonogram report reads as innumerable cyst replace in the left kidney. However a CT scan done a year ago did not reveal numerous cysts but there was 1 cyst. Overall she is doing well. She has no history of flank pain, hematuria, night sweats, pedal edema, passing of grit or gravel in the urine. Her BP is well controlled and her renal function remain at baseline. There were no complaints at the time of this office visit [facility] Medical History Renal calculi Renal cyst UTI (urinary tract infection) S/p nephrectomy Surgical History S/P cholecystectomy Hx of cataract surgery S/P PATRICIA-BSO Family History Father Stroke Cancer Mother Cancer HTN (hypertension) Social History Housing: House Patient Tobacco Use Status: Former Tobacco user e-Cigarette/Vaping Use: Never Used Second Hand Smoke Exposure: No service: No Current occupational status: retired Current occupational exposures/hazards: No Cognitive needs: No Hearing needs: No Vision needs: No Review of Systems Const All systems reviewed & are unremarkable except as noted in HPI and below Physical Exam Vital Signs: Last Vital Signs Pulse 119 H 06/29/24 12:04 BP 120/70 06/29/24 12:04 Pulse Ox 96 06/29/24 12:04 Oxygen Delivery Method Room Air 06/29/24 12:04 BMI result Body Mass Index 28.9 Const General: comfortable and no acute distress Orientation/consciousness: patient oriented x3 HEENT Head: Yes normocephalic Mouth: Normal oral and palatal mucosa present Eyes EOM: EOMs intact bilaterally Neck Neck: Yes supple Resp Auscultation: clear to auscultation bilaterally Cardio Jugular venous distension: no JVD Rate: regular rate GI Palpation (GI): Soft to palpation Auscultation: normal bowel sounds General: Yes no CVA tenderness Back/Spine/Pelvis Back: no CVA tenderness Skin General skin exam: no rashes or lesions noted Neuro General: patient oriented x3 and moves all extremities Extrem General: Yes no pedal edema Results Reviewed Nephrology Results: Hgb 14.3 g/dl (12.0-16.0) 05/26/24 WBC 6.8 X10*3/uL (4.8-10.8) 05/26/24 Plt Count 345 X10*3/uL (160-400) 05/26/24 Sodium 140 mmol/L (135-145) 05/26/24 Potassium 3.9 mmol/L (3.3-5.1) 05/26/24 Chloride 104 mmol/L (96-108) 05/26/24 Carbon Dioxide 28 mmol/L (22-29) 05/26/24 BUN 12 mg/dL (9-16) 05/26/24 Creatinine 0.77 mg/dL (0.5-1.4) 05/26/24 Calcium 10.1 mg/dL (8.4-10.2) 05/26/24 Urine Protein Negative mg/dL (Neg-Trace) 05/26/24 Urine Creatinine 138.87 mg/dL 05/26/24 Assessment & Plan Assessment & Plan (1) Acquired solitary kidney: Code(s): Z90.5 - Acquired absence of kidney Category: Medical (2) Multiple renal cysts: Code(s): Q61.02 - Congenital multiple renal cysts Category: Medical (3) History of kidney stones: Code(s): Z87.442 - Personal history of urinary calculi Category: Medical (4) Renal calculi: Code(s): N20.0 - Calculus of kidney Category: Medical (5) Essential hypertension: Code(s): I10 - Essential (primary) hypertension Category: Medical Plan She has acquired solitary left kidney with hypertension and diabetes mellitus with essentially normal renal function. CT scan done in 2021 revealed 1 cyst on the left kidney however ultrasonogram done in June 2023 was reported has multiple renal cyst. It is unlikely that she would have developed multiple cyst within 1 year. However the previous ultrasonogram also with reported a questionable septic stated or complex cyst. She will require a follow-up CT scan to evaluate the renal cyst. She has had recurrent UTIs with a history of renal stones. Her BP is well controlled and her renal function is at baseline. Will get a 24 hour urine collection for stone studies in the future. She should be on a low-sodium diet and maintain good hydration. I did not make any other medication today. Follow-up lab work ordered. Answered all questions. Follow-up given Orders: Orders Electrolytes Today Q61.02 - Congenital multiple renal cysts, Z90.5 - Acquired absence of kidney Protein Creatinine Ratio, Ur Today Q61.02 - Congenital multiple renal cysts, Z90.5 - Acquired absence of kidney Creatinine Today Q61.02 - Congenital multiple renal cysts, Z90.5 - Acquired absence of kidney Blood Urea Nitrogen Today Q61.02 - Congenital multiple renal cysts, Z90.5 - Acquired absence of kidney Coding Level of Care Code Est Pt Level 4 (51243) Diagnoses Acquired solitary kidney Z90.5 Multiple renal cysts Q61.02 History of kidney stones Z87.442 Renal calculi N20.0 Essential hypertension I10
== END 2024-06-29 12:29 | disposition home or self-care (01) ==
PROVIDERS: PCP Family Medicine; Visit Provider Internal Medicine Nephrology
DX: Z90.5 Acquired absence of kidney (principal); Q61.02 Congenital multiple renal cysts; Z87.442 Personal history of urinary calculi; N20.0 Calculus of kidney; I10 Essential (primary) hypertension
CPT/HCPCS: 99214

== ENCOUNTER → 2024-06-29 12:02 | Outpatient (BNVA) | payer MEDICARE, BC, SELFPAY | PROVIDERS: PCP Family Medicine; Visit Provider Internal Medicine Nephrology | DX: I10 Essential (primary) hypertension (principal); Q61.02 Congenital multiple renal cysts; N20.0 Calculus of kidney; Z87.440 Personal history of urinary (tract) infections; Z90.5 Acquired absence of kidney | CPT/HCPCS: 99212 ==

== ENCOUNTER 2024-09-04 07:05 | Outpatient (REF) | payer MEDICARE, BC, SELFPAY ==
[2024-09-04 08:17] LABS: Appearance Urine Clear; Color Urine Yellow; Glucose Urine UA Negative (Negative); Leukocyte Esterase Urine Small (1+) (Negative); Nitrite Urine Negative (Negative); Specific Gravity - Urine 1.015 (1.005-1.025); UMIC TRIGGER UA YES; Urine Blood Negative (Negative); Urine Ketones Negative (Negative); Urine Protein Negative (Neg-Trace)
[2024-09-04 08:23] LABS: Bacteria Urine 4+ (None Seen); Hyaline Casts Urine 0-2 /LPF (0-2); RBC Urine 0-2 /HPF (0-2)
[2024-09-04 08:31] LABS: Alanine Aminotransferase 39 U/L (0-31); Albumin Level 3.8 g/dL (3.5-5.0); Alkaline Phosphatase 118 U/L (39-117); Anion Gap 10 (12-20); Aspartate Amino Transferase 25 U/L (5-31); Bilirubin Total 0.4 mg/dL (0.0-1.0); Blood Urea Nitrogen 14 mg/dL (9-16); Calcium 9.2 mg/dL (8.4-10.2); Carbon Dioxide 28 mmol/L (22-29); Chloride 107 mmol/L (96-108); Estimated Glomerular Filt Rate > 60; Glucose Fasting 151 mg/dL (60-99); Sodium 141 mmol/L (135-145); Total Protein 6.7 g/dL (6.5-8.0)
[2024-09-04 08:42] LABS: Creatinine Urine 79.85 mg/dL; Total Protein Urine Random < 7 mg/dL (<12)
[2024-09-04 08:52] LABS: Vitamin D 25-OH Total 30.4 ng/mL (>30)
== END 2024-09-04 07:06 | disposition home or self-care (01) ==
LOC: HO.LAB 07:05
PROVIDERS: Internal Medicine Nephrology; PCP Family Medicine; Visit Provider Family Medicine
DX: Z00.00 Encounter for general adult medical examination without abnormal findings (principal); E55.9 Vitamin D deficiency, unspecified; Z90.5 Acquired absence of kidney; Q61.02 Congenital multiple renal cysts
CPT/HCPCS: 36415; 80053; 81001; 82306; 82570; 84156

== ENCOUNTER 2024-09-11 08:23 | Outpatient (AMB) | payer MEDICARE, BC, SELFPAY ==
--- NOTE | 2024-09-11 08:39 | A.OFFPC_ITS ---
Vital Signs 09/11/24 08:43 Height 5 ft 2 in Weight 156 lb BMI 28.5 BP 128/70 Blood Pressure Location Rt brachial Position Sitting Respiration 16 Pulse 86 Pulse Source Pulse Oximeter Temp 98.7 F Temp Source Oral Pulse Oximetry (%) 95 Oxygen Delivery Method Room Air Intake Visit Reasons: f/u diabetes, HTN, chronic conditions Intake Note: f/u DM,HTN Allergies No Known Allergies [No Known Allergies*] Allergy (Verified 09/11/24 08:42) Tobacco use date assessed: 01/29/24 Dental Screening Dental Screen Date: 06/01/24 HPI f/u diabetes, HTN, chronic conditions HPI Details 74 y/o female presents to f/u hypertensi on, diabetes. Blood pressure today 128/70, 86p. She is on nifedipine, losartan 50mg, hydrochlorothiazide 12.5mg daily. She continues working on a low salt diet. She exercises daily. Prior A1c 6.1%. A1c today 09/11/24 6.9%. She is on metformin 500mg daily. Recent eye exam in June showed no diabetic retinopathy. Has had a cough at night. Was to trial famotidine but she has not received this. Labs drawn 09/04/24. Reviewed labs with pt. AST 25. Elevated ALT of 39. Vitamin D 30.4. 4+ urine bacteria seen. HPI Comments History of Present Illness Details Documentation assistance for Jose Luis Roe MD, was provided by Kurtis Stout, [place] on 09/11/2024 at 9:04 AM EST. I, Dr. Roe, have read, observed, and verified documentation. PFS Medical History Renal calculi Renal cyst UTI (urinary tract infection) S/p nephrectomy Surgical History S/P cholecystectomy Hx of cataract surgery S/P PATRICIA-BSO Family History Father Stroke Cancer Mother Cancer HTN (hypertension) Social History Housing: House Patient Tobacco Use Status: Former Tobacco user e-Cigarette/Vaping Use: Never Used Second Hand Smoke Exposure: No service: No Current occupational status: retired Current occupational exposures/hazards: No Cognitive needs: No Hearing needs: No Vision needs: No Questionnaire PHQ-9 Over the last 2 weeks, how often have you been bothered by any of the following problems? 1. Little interest or pleasure in doing things: not at all 2. Feeling down, depressed, or hopeless: not at all 3. Trouble falling or staying asleep, or sleeping too much: not at all 4. Feeling tired or having little energy: not at all 5. Poor appetite or overeating: not at all 6. Feeling bad about yourself - or that you are a failure or have let yourself or your family down: not at all 7. Trouble concentrating on things, such as reading the newspaper or watching television: not at all 8. Moving or speaking so slowly that other people could have noticed. Or the opposite - being so fidgety or restless that you have been moving around a lot more than usual: not at all 9. Thoughts that you would be better off or of hurting yourself in some way: not at all Total score: 0 Source: Developed by Drs. Laith Green, Noelle Garcia, Eder Martin and colleagues, with an educational raj from [employer]. Thrive Questionnaire Date Thrive assessed: 09/04/24 I am a: Patient What is your living situation today?: I have a steady place to live Within the past 12 months, did the food you bought not last and you didn't have the money to get more?: Often true Within the past 12 months, did you worry whether your food would run out before you got money to buy more?: Often true Do you have trouble paying for medicines?: No Do you have trouble getting transportation to medical appointments?: No Do you have trouble paying your heating and electricity bill?: No Do you have trouble taking care of your child, family member or friend?: No Do you have trouble with day-to-day activities such as bathing, preparing meals, shopping, managing finances, etc.?: No Are you currently unemployed and looking for a job?: No Are you interested in more education?: No Please select the resources that you would like help with: None Currently or been in a relationship where the following occur: No concerns reported THRIVE Score: 2 AUDIT C Alcohol Use Questionnaire (AUDIT-C) 1. How often do you have a drink containing alcohol?: 2-4 times a month 2. How many drinks containing alcohol do you have on a typical day when you are drinking?: 1 or 2 3. How often do you have six or more drinks on one occasion?: Never Total Score: 2 MARYSE-7 AMB Questionnaire MARYSE-7 Date MARYSE - 7 assessed: 06/01/24 Feeling nervous, anxious, or on edge: 0 = Not at all Not being able to stop or control worryin = Not at all Worrying too much about different things: 0 = Not at all Trouble relaxin = Not at all Being so restless that it is hard to sit still: 0 = Not at all Becoming easily annoyed or irritable: 0 = Not at all Feeling afraid as if something awful might happen: 0 = Not at all Total MARYSE-7 score (0-4 normal; 5-9 mild; 10-14 moderate; 15-21 severe): 0 Source: Developed by Drs. Laith Green, Noelle Garcia, Eder Martin and colleagues, with an educational raj from [employer]. Review of Systems Const Denies chills, Denies fatigue, Denies fever(s), Denies headache(s) and Denies weakness ENT Denies dizziness and Denies headache(s) Card Denies chest pain, Denies lightheadedness, Denies dyspnea and Denies other (Palpitations) Resp Denies cough, Denies dyspnea, Denies wheezing and Denies other ( shortness of breath) Musc Denies numbness and Denies tingling Neuro Denies dizziness, Denies headache(s), Denies numbness, Denies tingling, Denies paresthesias and Denies weakness Psych Denies anxiety and Denies depression Endo Denies fatigue Aller/Immun Denies wheezing Physical exam (Primary Care) Vital Signs: Last Vital Signs Temp 98.7 F 09/11/24 08:43 Pulse 86 09/11/24 08:43 Resp 16 09/11/24 08:43 BP 128/70 09/11/24 08:43 Pulse Ox 95 09/11/24 08:43 Oxygen Delivery Method Room Air 09/11/24 08:43 BMI result Body Mass Index 28.5 Tobacco/Smoking Status: Tobacco use Status Tobacco use date assessed 01/29/24 09/11/24 08:41 Patient Tobacco Use Status Former Tobacco user 09/11/24 08:41 e-Cigarette/Vaping Use Never Used 09/11/24 08:41 PHQ-9: PHQ-9 Score PHQ-9: Total score 0 09/11/24 08:41 Thrive Assessment: Date of Thrive Assessment Date Thrive assessed 09/04/24 09/11/24 08:41 Currently or been in a relationship where the following occur: No concerns reported Const General: no acute distress and well developed Nutritional Appearance: well nourished Orientation/consciousness: patient oriented x3 HENMT Head: Yes normocephalic and Yes atraumatic Eyes General: appearance normal, both eyes and all related structures Pupils: Equal, round and reactive pupils present EOM: EOMs intact bilaterally Resp Effort & Inspection: normal respiratory effort Auscultation: clear to auscultation bilaterally Cardio Rate: regular rate Rhythm: regular rhythm Heart sounds: S1 normal heart sound present, S2 normal heart sound present, no gallops, no murmurs and no rubs Neuro General: patient oriented x3 and gait normal Cranial nerves: Yes Equal, round and reactive pupils present Psych Affect: normal affect Coding Level of Care Code Est Pt Level 4 (27422) Diagnoses Diabetes type 2, controlled E11.9 Essential hypertension I10 Chronic cough R05 Elevated liver enzymes R74.8 Asymptomatic bacteriuria R82.71 Assessment & Plan Assessment & Plan (1) Diabetes type 2, controlled: Code(s): E11.9 - Type 2 diabetes mellitus without complications Category: Medical Plan: A1c?climbed?from?6.1%?to?6.9%?but?is?still?at?goal?of?less?than?7.0% Continue?current?medication Encouraged?increased?work?at?diet?low?in?sugars?and?starches,?exercise?weight?co ntrol (2) Essential hypertension: Code(s): I10 - Essential (primary) hypertension Category: Medical Plan: Blood?pressure?is?controlled.??Goal?is?less?than?140/90 Continue?current?medication?regimen (3) Chronic cough: Code(s): R05 - Cough Category: Medical Plan: Had?sent?a?script?for?famotidine?to?rule?out?silent?GERD/microaspiration She?did?not?receive?this?or?try?it?yet.??Resent?script She?can?let?me?know?if?this?is?helping.??Given?that?she?also?has?osteopenia,?angela ht?make?a?referral?to?GI?if?it?does (4) Elevated liver enzymes: Code(s): R74.8 - Abnormal levels of other serum enzymes Category: Medical Plan: Encouraged?increased?hydration,?decreased?Tylenol?decrease?alcohol?and?work?at?w eight?loss Will?recheck?at?a?subsequent (5) Asymptomatic bacteriuria: Code(s): R82.71 - Bacteriuria Category: Medical Plan: Patient?is?asymptomatic ?Increase?hydration Medications: Refilled famotidine 20 mg PO BEDTIME 14 days 14 tabs 0RF
[2024-09-11 08:43] VITALS: BP 128/70; PULSE 86; RESP 16; TEMP 37.1; O2SAT 95; BMI 28.5
== END 2024-09-11 09:07 | disposition home or self-care (01) ==
PROVIDERS: PCP Family Medicine; Visit Provider Family Medicine
DX: E11.9 Type 2 diabetes mellitus without complications (principal); I10 Essential (primary) hypertension; R05.9 Cough, unspecified; R74.8 Abnormal levels of other serum enzymes; R82.71 Bacteriuria

== ENCOUNTER → 2024-09-11 08:23 | Outpatient (BNVA) | payer MEDICARE, BC, SELFPAY | PROVIDERS: PCP Family Medicine; Visit Provider Family Medicine | DX: E11.9 Type 2 diabetes mellitus without complications (principal); I10 Essential (primary) hypertension; R74.8 Abnormal levels of other serum enzymes; R05.9 Cough, unspecified; R82.71 Bacteriuria | CPT/HCPCS: 83036; 96127; 99212 ==

== ENCOUNTER 2024-10-05 09:52 | Outpatient (REF) | payer MEDICARE, BC, SELFPAY ==
[2024-10-05 10:29] LABS: MANUAL DIFF FLAG NO
[2024-10-05 11:13] LABS: Basophils Absolute Auto 0.1 X10*3/uL (0.0-0.2); Basophils Percent Auto 0.6 % (0-2); Eosinophils Absolute Auto 0.1 X10*3/uL (0.0-0.4); Eosinophils Percent Auto 1.3 % (0-4); Hematocrit 43.3 % (37.0-47.0); Hemoglobin 14.6 g/dl (12.0-16.0); Imm Gran Abs Auto 0.04 X10*3/uL (0.00-0.03); Imm Gran Pct Auto 0.4 % (0.0-0.4); Lymphocytes Absolute Auto 1.9 X10*3/uL (1.2-4.9); Lymphocytes Percent Auto 21.2 % (20-40); Mean Corpuscular HGB Conc 33.7 g/dl (31.0-35.0); Mean Corpuscular Hemoglobin 30.1 pg (27.0-33.0); Mean Corpuscular Volume 89.3 fL (80.0-98.0); Mean Platelet Volume 10.6 fL (9.4-12.3); Monocytes Absolute Auto 0.7 X10*3/uL (0.1-1.2); Monocytes Percent Auto 7.6 % (2-11); Neutrophils Absolute Auto 6.2 x10*3/uL (2.0-8.3); Neutrophils Percent Auto 68.9 % (45-73); Platelet Count 339 X10*3/uL (160-400); Red Blood Count 4.85 X10*6/uL (4.20-5.50); Red Cell Distribution Width 12.6 % (11.0-16.0); White Blood Count 9.1 X10*3/uL (4.8-10.8)
[2024-10-05 12:19] LABS: Anion Gap 15 (12-20); Blood Urea Nitrogen 17 mg/dL (9-16); Carbon Dioxide 28 mmol/L (22-29); Chloride 105 mmol/L (96-108); Estimated Glomerular Filt Rate > 60; Potassium 3.7 mmol/L (3.3-5.1); Sodium 144 mmol/L (135-145)
[2024-10-06 23:14] LABS: Class Alternaria alternata 0/1; Class Aspergillus fumigatus 0; Class Bermuda Grass 0; Class Birch 0; Class Cat Dander 0; Class Cladosporium herbarum 0; Class Cockroach 0; Class Common Ragweed 0; Class Cottonwood 0; Class Derm. pterony 0; Class Dermatophagoides farinae 0; Class Dog Dander 0; Class Elm 0; Class Maple Box Elder 0; Class Mountain Cedar 0; Class Mouse Urine Protein 0; Class Mugwort 0; Class Oak 0; Class Penicillium crysogenum 0; Class Rough Pigweed 0; Class Sheep Sorrel 0; Class Sycamore 0; Class Timothy Grass 0; Class Walnut Tree 0; Class White Ash 0; Class White Mulberry 0; D001 IgE D pteronyssinus <0.10 kU/L; D002 - IgE D farinae <0.10 kU/L; E001 - IgE Cat Dander <0.10 kU/L; E005 - IgE Dog Dander <0.10 kU/L; E072-IgE Mouse Urine <0.10 kU/L; G002 IgE Bermuda Grass <0.10 kU/L; G006 - IgE Timothy Grass <0.10 kU/L; I006-IgE Cockroach, German <0.10 kU/L; Immunoglobulin E 40 kU/L (<OR=114); M001 IgE Penicillium chrysogen <0.10 kU/L; M002 - IgE Cladosporium herbar <0.10 kU/L; M003 - IgE Aspergillus fumigat <0.10 kU/L; T001 IgE Maple/Box Elder <0.10 kU/L; T003 IgE Common Silver Birch <0.10 kU/L; T006 - IgE Cedar, Mountain <0.10 kU/L; T007 - IgE Oak, White <0.10 kU/L; T008 IgE Elm, American <0.10 kU/L; T010 - IgE Walnut <0.10 kU/L; T011 - IgE Maple Leaf Sycamore <0.10 kU/L; T014 - IgE Cottonwood <0.10 kU/L; T015 - IgE Ash, White <0.10 kU/L; T070 - IgE White Mulberry <0.10 kU/L; W001 - IgE Ragweed, Short <0.10 kU/L; W006 - IgE Mugwort <0.10 kU/L; W014 IgE Pigweed, Common <0.10 kU/L; W018 IgE Sheep Sorrel <0.10 kU/L
== END 2024-10-05 09:53 | disposition home or self-care (01) ==
LOC: HO.LAB 09:52
PROVIDERS: PCP Family Medicine; Referring Provider Internal Medicine Nephrology; Visit Provider Internal Medicine Pulmonary Disease
DX: Q61.02 Congenital multiple renal cysts (principal); Z90.5 Acquired absence of kidney; Z87.442 Personal history of urinary calculi; J45.909 Unspecified asthma, uncomplicated; Z91.09 Other allergy status, other than to drugs and biological substances
CPT/HCPCS: 36415; 80051; 82565; 82785; 84520; 85025; 86003; 99212

== ENCOUNTER 2024-10-05 09:52 | Outpatient (AMB) | payer MEDICARE, BC, SELFPAY ==
--- NOTE | 2024-10-05 09:55 | MHC.OFFVIS ---
Vital Signs 10/05/24 09:56 Height 5 ft 2 in Weight 158 lb BMI 28.9 BP 128/77 Blood Pressure Location Rt brachial Position Sitting Pulse 91 Pulse Source Doppler Pulse Oximetry (%) 94 Oxygen Delivery Method Room Air Intake Visit Reasons: Cough Allergies No Known Allergies [No Known Allergies*] Allergy (Verified 09/11/24 08:42) HPI HPI Cough: Details: 74-year-old lady, former minimal smoker, quit over 35 years prior with underlying history of chronic cough ongoing for 5 years, intermittently productive of small amount of clear sputum.? Patient continues to use Prilosec now once a day with good control of her underlying GERD.?She continues to use CPAP with good control of her underlying sleep apnea symptoms. Her asthma and allergy symptoms with improved control on Breo 200 albuterol MDI, however she still his recurrent cough. She continues on nasal ipratropium as needed. [facility] Medical History Renal calculi Renal cyst UTI (urinary tract infection) S/p nephrectomy Surgical History S/P cholecystectomy Hx of cataract surgery S/P PATRICIA-BSO Family History Father Stroke Cancer Mother Cancer HTN (hypertension) Social History Housing: House Patient Tobacco Use Status: Former Tobacco user e-Cigarette/Vaping Use: Never Used Second Hand Smoke Exposure: No service: No Current occupational status: retired Current occupational exposures/hazards: No Cognitive needs: No Hearing needs: No Vision needs: No Review of Systems Const Denies daytime sleepiness, Denies excessive sweating, Denies fatigue, Denies fever(s), Denies lethargy, Denies malaise, Denies night sweats, Denies snoring and Denies weight loss Eyes Denies blurry vision and Denies itchy eyes ENT Denies nasal congestion, Denies post nasal drip, Denies sinus pain, Denies sinus pressure and Denies other ( Thrush) Card Denies chest pain, Denies pedal edema, Denies dyspnea, Denies orthopnea and Denies paroxysmal nocturnal dyspnea Resp Reports cough, Denies hemoptysis, Reports excessive phlegm production, Denies dyspnea, Denies snoring and Denies wheezing GI Denies abdominal pain and Denies heartburn Musc Denies myalgias, Denies arthralgias and Denies joint swelling Skin/Breast Denies rash Neuro Denies memory loss and Denies seizure-like activity Psych Denies abnormal sleep pattern, Denies anxiety and Denies memory loss Endo Denies excessive sweating, Denies fatigue and Denies heat intolerance Agustín/Lymph Denies easy bruising Aller/Immun Denies itchy eyes, Denies seasonal rhinorrhea and Denies wheezing Physical Exam Vital Signs: Last Vital Signs Pulse 91 10/05/24 09:56 BP 128/77 10/05/24 09:56 Pulse Ox 94 10/05/24 09:56 Oxygen Delivery Method Room Air 10/05/24 09:56 BMI result Body Mass Index 28.9 Const General: no acute distress and alert Nutritional Appearance: not obese Orientation/consciousness: Other orientation findings ( oriented) HEENT Head: Yes atraumatic Eyes General: appearance normal, both eyes and all related structures Sclerae: sclerae normal EOM: EOMs intact bilaterally Neck Neck: Yes supple Lymphatic: no lymphadenopathy noted Resp Effort & Inspection: normal respiratory effort and no use of accessory muscles Auscultation: clear to auscultation bilaterally Cardio Rate: regular rate Rhythm: regular rhythm Heart sounds: no gallops, no murmurs and no rubs Skin General skin exam: other ( warm) Extrem General: No clubbing, No cyanosis and No edema Assessment & Plan Assessment & Plan (1) Asthma: Code(s): J45.909 - Unspecified asthma, uncomplicated Category: Medical Plan: Overall good baseline control on Breo and albuterol MDI. Does appear to have allergic component. Continue current regimen. (2) Chronic cough: Code(s): R05 - Cough Category: Medical Plan: Appears to have allergic component exacerbation of underlying cough. GERD component well controlled on omeprazole. Continue current regimen. (3) ERIC (obstructive sleep apnea): Code(s): G47.33 - Obstructive sleep apnea (adult) (pediatric) Category: Medical Plan: Well controlled on CPAP therapy. Continue CPAP therapy. (4) Environmental allergies: Code(s): Z91.09 - Other allergy status, other than to drugs and biological substances Category: Medical Plan: Will obtain IgE level, CBC with differential, and RAST panel for further evaluation. Orders: Orders Resp Allergy Profile Region I Today J45.909 - Unspecified asthma, uncomplicated Complete Blood Count Auto Diff Today J45.909 - Unspecified asthma, uncomplicated Medications: Refilled fluticasone furoate-vilanterol 200-25 mcg/dose (Breo Ellipta) 1 inh inhalation DAILY 1 inhaler 6RF J45.909 - Unspecified asthma, uncomplicated Coding Level of Care Code Est Pt Level 4 (47673) Complex EM visit Add On G2211 Diagnoses Asthma J45.909 Chronic cough R05 ERIC (obstructive sleep apnea) G47.33 Environmental allergies Z91.09
[2024-10-05 09:56] VITALS: BP 128/77; PULSE 91; O2SAT 94; BMI 28.9
== END 2024-10-05 10:09 | disposition home or self-care (01) ==
PROVIDERS: PCP Family Medicine; Visit Provider Internal Medicine Pulmonary Disease
DX: J45.909 Unspecified asthma, uncomplicated (principal); R05.9 Cough, unspecified; G47.33 Obstructive sleep apnea (adult) (pediatric); Z91.09 Other allergy status, other than to drugs and biological substances
CPT/HCPCS: 99214; G2211

== ENCOUNTER 2024-10-13 07:34 | Outpatient (REF) | payer MEDICARE, BC, SELFPAY ==
--- NOTE | ~2024-10-13 | CT_ITS ---
EXAMINATION: CT ABDOMEN AND PELVIS WITHOUT CONTRAST CLINICAL INFORMATION: Calculus of kidney COMPARISON: CT abdomen pelvis 08/22/2022 TECHNIQUE: Multidetector volumetric imaging was performed from the superior aspect of the liver through the pubic symphysis. Sagittal and coronal reformatted images were obtained on the technologist's workstation. This CT examination was performed using dose optimization techniques as appropriate, variously including the following: *Automated exposure control *Adjustment of mA and/or kV according to patient size (this includes techniques or standardized protocols for targeted exams where dose is matched to indication/reason for exam; i.e. extremities or head) *Use of iterative reconstruction technique DLP: 413 mGy-cm FINDINGS: LUNG BASES: The lung bases are clear. Heart size is normal. LIVER, GALLBLADDER, AND BILIARY TREE: The liver is normal size, shape but mildly enlarged. No focal lesion or intrahepatic ductal dilatation seen. The gallbladder has been surgically removed. PANCREAS: Unremarkable. SPLEEN: Unremarkable. ADRENAL GLANDS: There is a 1.4 center left adrenal lesion measuring -20 Hounsfield units and a 1.6 cm right adrenal lesion measuring 0.46 cm. Both are benign in etiology. KIDNEYS AND URETERS: The right kidney is absent. Left kidney measures 12.3 cm in length. There is an exophytic bilobed cyst with peripheral wall calcification measuring 6.2 x 5.6 x 6.48 cm. BLADDER: Unremarkable. GASTROINTESTINAL TRACT: There is moderate scattered stool and gas in colon without distention. The small bowel loops are normal caliber. Appendix is normal caliber. There is no free air or free fluid. ABDOMINAL WALL: No significant hernia is appreciated. LYMPH NODES: Normal. VASCULAR: Unremarkable. PELVIC VISCERA: Unremarkable. OSSEOUS STRUCTURES: No aggressive lytic or sclerotic process seen. Mild bilateral L4-5 and L5-S1 facet joint arthropathy is noted without aggressive lytic or sclerotic process seen. CT/CT abdomen pelvis wo IV con IMPRESSION: Solitary left kidney with moderate size cyst with wall calcification type II Bosniak. No radiopaque renal calculi seen. Colonic diverticulosis without diverticulitis. Moderate constipation. Fleischner guidelines were followed. Electronically signed by: Ranjan Butcher MD 10/16/2024 04:52 PM EST
== END 2024-10-13 07:35 | disposition home or self-care (01) ==
LOC: HO.CT 07:34
PROVIDERS: PCP Family Medicine; Visit Provider Urology
DX: N20.0 Calculus of kidney (principal); Q61.02 Congenital multiple renal cysts; Z90.5 Acquired absence of kidney
CPT/HCPCS: 74176

== ENCOUNTER → 2024-10-13 07:36 | Outpatient (BNV) | payer MEDICARE, BC, SELFPAY | PROVIDERS: PCP Family Medicine; Visit Provider Radiology Diagnostic Radiology | DX: N28.1 Cyst of kidney, acquired (principal); Z90.5 Acquired absence of kidney; K57.30 Diverticulosis of large intestine without perforation or abscess without bleeding; K59.00 Constipation, unspecified | CPT/HCPCS: 74176 ==

== ENCOUNTER 2024-10-26 13:50 | Outpatient (AMB) | payer MEDICARE, BC, SELFPAY ==
--- NOTE | 2024-10-25 19:55 | A.OFFVIS_ITS ---
Intake Visit Reasons: 1y/CT Intake Note: Patient is Present for Telephone Follow Up CT Urology Med: None Antibiotic Allergy: None Blood Thinner: None Scrap Materials Buyer Required: No Accompanied by: Self / Same As Patient Allergies No Known Allergies [No Known Allergies*] Allergy (Verified 11/17/24 09:55) Medication List - Last Reconciled 10/26/24 by Kathya Green MD albuterol sulfate 90 mcg/actuation 2 puffs inhalation Q4-6H PRN atorvastatin 40 mg PO DAILY 90 days famotidine 20 mg PO BEDTIME 14 days fluticasone furoate-vilanterol 200-25 mcg/dose (Breo Ellipta) 1 inh inhalation DAILY hydrochlorothiazide 12.5 mg PO DAILY ipratropium bromide 2 sprays intranasal TID-QID PRN losartan 50 mg PO DAILY 90 days metformin 500 mg PO DAILY nifedipine ER 30 mg PO DAILY 90 days nifedipine ER 90 mg PO DAILY 3 months omeprazole 40 mg (2 x 20 mg) PO DAILY HPI Comments Details: Holley is a 74-year-old female who presents Telehealth today to the office for a follow-up for solitary left kidney, history of kidney stones. CTAP-10/13/24--Solitary left kidney with moderate size cyst with wall calcification type II Bosniak. No radiopaque renal calculi seen. Review of chart: 08/26/2023? PMH: DM, Htn, h/o hyst. She is followed today for US results. 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 Patient has a history of kidney stones and renal cysts. She was last seen by me on 01/24/2023, and advised on diet to decrease risk for kidney stones including adequate fluid hydration. She denies dysuria, on questioning states dull ache in left kidney area. In review of the US there is multiple renal cyst and possible kidney stones comparing this to prior CAT scan from 08/22/22 there was a 4.6x4.6 cm complex cyst with peripheral calcification along the wall. 08/26/2023: Evaluation today--UA-- leukocytes: negative; Nitrite: positive. 08/26/23: Plan: Refer to nephrology. Nitrite positive urine--Prescribed Augmentin 500 mg twice a day for 7 days. pending urine c/s Diet Modification. Advised to consume adequate amount of water. Recommended to increase citrate in diet, (add lemon 1/2 cup, to water) Patient education material regarding dietary recommendation for preventing renal calculi was provided. Acquired Solitary Kidney. Kidney Cyst. --Will monitor; Follow-up in one year with non contrast CT scan. Review of charts: 09/28/22--24 hour urine results: Total volume 1.57 liters, Calcium 133 mg; Oxalate 19 mg, Sodium 186, Citrate 464 mg. PFSH Medical History Renal calculi Renal cyst UTI (urinary tract infection) S/p nephrectomy Surgical History S/P cholecystectomy Hx of cataract surgery S/P PATRICIA-BSO Family History Father Stroke Cancer Mother Cancer HTN (hypertension) Social History Housing: House Patient Tobacco Use Status: Former Tobacco user e-Cigarette/Vaping Use: Never Used Second Hand Smoke Exposure: No service: No Current occupational status: retired Current occupational exposures/hazards: No Cognitive needs: No Hearing needs: No Vision needs: No Telehealth Telehealth Telehealth Platform: [facility] Location of provider rendering services: practice address Location of patient: address on file Patient Identification confirmed using: Name, : Yes Telehealth method: voice only Patient verbally consented to treatment: Yes Patient verbally consented to billing insurance company: Yes Patient informed of any privacy concerns related to visit: Yes Minutes spent on Phone/Video with Pt.: 15 Results Reviewed Results Reviewed: Date of Service: 10/13/24 CT ABDOMEN AND PELVIS WITHOUT CONTRAST CLINICAL INFORMATION: Calculus of kidney COMPARISON: CT abdomen pelvis 08/22/2022 TECHNIQUE: Multidetector volumetric imaging was performed from the superior aspect of the liver through the pubic symphysis. Sagittal and coronal reformatted images were obtained on the technologist's workstation. This CT examination was performed using dose optimization techniques as appropriate, variously including the following: *Automated exposure control *Adjustment of mA and/or kV according to patient size (this includes techniques or standardized protocols for targeted exams where dose is matched to indication/reason for exam; i.e. extremities or head) *Use of iterative reconstruction technique DLP: 413 mGy-cm FINDINGS: LUNG BASES: The lung bases are clear. Heart size is normal. LIVER, GALLBLADDER, AND BILIARY TREE: The liver is normal size, shape but mildly enlarged. No focal lesion or intrahepatic ductal dilatation seen. The gallbladder has been surgically removed. PANCREAS: Unremarkable. SPLEEN: Unremarkable. ADRENAL GLANDS: There is a 1.4 center left adrenal lesion measuring -20 Hounsfield units and a 1.6 cm right adrenal lesion measuring 0.46 cm. Both are benign in etiology. KIDNEYS AND URETERS: The right kidney is absent. Left kidney measures 12.3 cm in length. There is an exophytic bilobed cyst with peripheral wall calcification measuring 6.2 x 5.6 x 6.48 cm. BLADDER: Unremarkable. GASTROINTESTINAL TRACT: There is moderate scattered stool and gas in colon without distention. The small bowel loops are normal caliber. Appendix is normal caliber. There is no free air or free fluid. ABDOMINAL WALL: No significant hernia is appreciated. LYMPH NODES: Normal. VASCULAR: Unremarkable. PELVIC VISCERA: Unremarkable. OSSEOUS STRUCTURES: No aggressive lytic or sclerotic process seen. Mild bilateral L4-5 and L5-S1 facet joint arthropathy is noted without aggressive lytic or sclerotic process seen. IMPRESSION: Solitary left kidney with moderate size cyst with wall calcification type II Bosniak. No radiopaque renal calculi seen. Date of Service: 07/12/23 EXAMINATION: US RETROPERITONEAL LIMITED (RENAL ONLY) CLINICAL INFORMATION: Cyst of kidney, acquired. COMPARISON: CT abdomen and pelvis 08/22/2022. Renal ultrasound 07/09/2022 and 11/23/2021. X-ray KUB 02/22/2020 and 02/10/2020. FINDINGS: RIGHT KIDNEY: Surgically absent. There is hypoechoic 1.3 x 1.6 x 1.5 cm focus, most likely seen on the CT scan from August 2022 adrenal gland LEFT KIDNEY: 13.4 x 6.4 x 5.4 cm (SAG x AP x TRV). The left kidney completely replaced by numerous cysts with the largest in the upper pole measured 5.8 x 4.6 x 5.7 cm, 2.1 x 2.1 x 2.2 cm, 2.0 x 1.1 x 1.5 cm. There is 1.3 x 1.1 x 1.4 cm cyst in the lower pole there is 0.5 x 0.4 x 0.6 cm stone in the upper pole and 0.4 x 0.4 x 0.5 cm stone in the upper pole there is pelvic fullness and multiple echogenic foci seen. IMPRESSION: 1. Adrenal gland nodule. 2. Innumerable cysts in the left kidney and nephrolithiasis, correlate with CT scan Assessment & Plan Assessment & Plan (1) Acquired complex cyst of kidney: Code(s): N28.1 - Cyst of kidney, acquired Category: Medical (2) History of kidney stones: Code(s): Z87.442 - Personal history of urinary calculi Category: Medical (3) Acquired solitary kidney: Code(s): Z90.5 - Acquired absence of kidney Category: Medical (4) Multiple renal cysts: Code(s): Q61.02 - Congenital multiple renal cysts Category: Medical Plan Diet Modification. Advised to consume adequate amount of water. Acquired Solitary Kidney. Kidney Cyst. --Will monitor; Orders: Orders CT abdomen pelvis wo IV con 10/13/24 N20.0 - Calculus of kidney, Q61.02 - Congenital multiple renal cysts, N28.1 - Cyst of kidney, acquired, Z90.5 - Acquired absence of kidney Patient Instructions: The patient had an opportunity to ask questions regarding treatment plan. The patient expressed understanding and agreement with the above treatment plan. The patient is aware they should contact our office by phone for worsening of their current condition or the appearance of new symptoms. Compliance is encouraged with any medications and followup testing that is ordered. It is a privilege to be allowed the opportunity to participate in the urologic care of your patient. If you have any questions or concerns regarding treatment for the above conditions please do not hesitate to contact me. The office telephone contact is [phone]. This note is constructed in part using voice recognition software. While every effort has been made to ensure accuracy blow molding machine tender errors may have been included. Yours sincerely, Kathya Green MD Coding Level of Care Code Tele Est Pt Level 3 (93987) Complex EM visit Add On G2211 Diagnoses Acquired complex cyst of kidney N28.1 History of kidney stones Z87.442 Acquired solitary kidney Z90.5 Multiple renal cysts Q61.02
== END 2024-10-26 16:30 | disposition home or self-care (01) ==
LOC: HO.HUSH 13:50
PROVIDERS: PCP Family Medicine; Visit Provider Urology
DX: N28.1 Cyst of kidney, acquired (principal); Z87.442 Personal history of urinary calculi; Z90.5 Acquired absence of kidney
CPT/HCPCS: 99213; G2211

== ENCOUNTER 2024-11-17 09:30 | Outpatient (AMB) | payer MEDICARE, BC, SELFPAY ==
--- NOTE | 2024-11-17 09:54 | A.OFFPC_ITS ---
Vital Signs 11/17/24 09:58 Height 5 ft 2 in Weight 159 lb BMI 29.1 BP 110/68 Blood Pressure Location Rt brachial Position Sitting Respiration 16 Pulse 97 Pulse Source Pulse Oximeter Temp 98.1 F Temp Source Oral Pulse Oximetry (%) 96 Oxygen Delivery Method Room Air Intake Visit Reasons: f/u diabetes, HTN Intake Note: f/u D/M and HTN Allergies No Known Allergies [No Known Allergies*] Allergy (Verified 11/17/24 09:55) Medication List - Last Reconciled 11/17/24 by Jose Luis Roe MD albuterol sulfate 90 mcg/actuation 2 puffs inhalation Q4-6H PRN atorvastatin 40 mg PO DAILY 90 days famotidine 20 mg PO BEDTIME 14 days fluticasone furoate-vilanterol 200-25 mcg/dose (Breo Ellipta) 1 inh inhalation DAILY hydrochlorothiazide 12.5 mg PO DAILY ipratropium bromide 2 sprays intranasal TID-QID PRN losartan 50 mg PO DAILY 90 days metformin 500 mg PO DAILY montelukast 10 mg PO DAILY 90 days nifedipine ER 30 mg PO DAILY 90 days nifedipine ER 90 mg PO DAILY 3 months omeprazole 40 mg (2 x 20 mg) PO DAILY Tobacco use date assessed: 01/29/24 Dental Screening Dental Screen Date: 06/01/24 HPI f/u diabetes, HTN HPI Details 74 y/o female presents to f/u hypertensi on, diabetes. Blood pressure today 110/68, 97p. She is on losartan 50mg, HCTZ 12.5mg daily, nifedipine. Last A1c 09/11/24 6.9%. She is on metformin 500mg daily. A1c today 11/17/24 is 6.6%. HPI Comments History of Present Illness Details Documentation assistance for Jose Luis Roe MD, was provided by Kurtis Stout,? Planned Giving Officer on 11/17/2024 at 10:14 AM EST. I, Dr. Roe, have read, observed, and verified documentation. [facility] Medical History Renal calculi Renal cyst UTI (urinary tract infection) S/p nephrectomy Surgical History S/P cholecystectomy Hx of cataract surgery S/P PATRICIA-BSO Family History Father Stroke Cancer Mother Cancer HTN (hypertension) Social History Housing: House Patient Tobacco Use Status: Former Tobacco user e-Cigarette/Vaping Use: Never Used Second Hand Smoke Exposure: No service: No Current occupational status: retired Current occupational exposures/hazards: No Cognitive needs: No Hearing needs: No Vision needs: No Questionnaire PHQ-9 Over the last 2 weeks, how often have you been bothered by any of the following problems? 1. Little interest or pleasure in doing things: not at all 2. Feeling down, depressed, or hopeless: not at all 3. Trouble falling or staying asleep, or sleeping too much: not at all 4. Feeling tired or having little energy: not at all 5. Poor appetite or overeating: not at all 6. Feeling bad about yourself - or that you are a failure or have let yourself or your family down: not at all 7. Trouble concentrating on things, such as reading the newspaper or watching television: not at all 8. Moving or speaking so slowly that other people could have noticed. Or the opposite - being so fidgety or restless that you have been moving around a lot more than usual: not at all 9. Thoughts that you would be better off or of hurting yourself in some way: not at all Total score: 0 Source: Developed by Drs. Laith Green, Noelle Garcia, Eder Martin and colleagues, with an educational raj from [employer]. Thrive Questionnaire Date Thrive assessed: 11/10/24 I am a: Patient What is your living situation today?: I have a steady place to live Within the past 12 months, did the food you bought not last and you didn't have the money to get more?: Never true Within the past 12 months, did you worry whether your food would run out before you got money to buy more?: Never true Do you have trouble paying for medicines?: No Do you have trouble getting transportation to medical appointments?: No Do you have trouble paying your heating and electricity bill?: No Do you have trouble taking care of your child, family member or friend?: No Do you have trouble with day-to-day activities such as bathing, preparing meals, shopping, managing finances, etc.?: No Are you currently unemployed and looking for a job?: No Are you interested in more education?: No Please select the resources that you would like help with: None Currently or been in a relationship where the following occur: No concerns reported THRIVE Score: 0 AUDIT C Alcohol Use Questionnaire (AUDIT-C) 2. How many drinks containing alcohol do you have on a typical day when you are drinking?: 1 or 2 Total Score: 0 MARYSE-7 AMB Questionnaire MARYSE-7 Date MARYSE - 7 assessed: 06/01/24 Feeling nervous, anxious, or on edge: 0 = Not at all Not being able to stop or control worryin = Not at all Worrying too much about different things: 0 = Not at all Trouble relaxin = Not at all Being so restless that it is hard to sit still: 0 = Not at all Becoming easily annoyed or irritable: 0 = Not at all Feeling afraid as if something awful might happen: 0 = Not at all Total MARYSE-7 score (0-4 normal; 5-9 mild; 10-14 moderate; 15-21 severe): 0 Source: Developed by Drs. Laith Green, Noelle Garcia, Eder Martin and colleagues, with an educational raj from [employer]. Review of Systems Const Denies chills, Denies fatigue, Denies fever(s), Denies headache(s) and Denies weakness ENT Denies dizziness and Denies headache(s) Card Denies dyspnea Resp Reports cough, Denies dyspnea, Denies wheezing and Denies other (shortness of breath) Musc Denies numbness and Denies tingling Neuro Denies dizziness, Denies headache(s), Denies numbness, Denies tingling and Denies weakness Psych Denies anxiety and Denies depression Endo Denies fatigue Aller/Immun Denies wheezing Physical exam (Primary Care) Vital Signs: Last Vital Signs Temp 98.1 F 11/17/24 09:58 Pulse 97 11/17/24 09:58 Resp 16 11/17/24 09:58 BP 110/68 11/17/24 09:58 Pulse Ox 96 01/28/25 09:58 Oxygen Delivery Method Room Air 11/17/24 09:58 BMI result Body Mass Index 29.1 Tobacco/Smoking Status: Tobacco use Status Tobacco use date assessed 01/29/24 11/17/24 10:02 Patient Tobacco Use Status Former Tobacco user 11/17/24 10:02 e-Cigarette/Vaping Use Never Used 11/17/24 10:02 PHQ-9: PHQ-9 Score PHQ-9: Total score 0 11/17/24 10:09 Thrive Assessment: Date of Thrive Assessment Date Thrive assessed 11/10/24 11/17/24 10:02 Currently or been in a relationship where the following occur: No concerns reported Const General: well developed; No acute distress Nutritional Appearance: well nourished Orientation/consciousness: patient oriented x3 HENMT Head: Yes normocephalic and Yes atraumatic Eyes General: appearance normal, both eyes and all related structures Pupils: Equal, round and reactive pupils present EOM: EOMs intact bilaterally Resp Effort & Inspection: normal respiratory effort Auscultation: clear to auscultation bilaterally Cardio Rate: regular rate Rhythm: regular rhythm Heart sounds: S1 normal heart sound present, S2 normal heart sound present, no gallops, no murmurs and no rubs Neuro General: patient oriented x3 and gait normal Cranial nerves: Yes Equal, round and reactive pupils present Psych Affect: normal affect Coding Level of Care Code Est Pt Level 3 (48735) Diagnoses Diabetes type 2, controlled E11.9 Essential hypertension I10 Elevated liver enzymes R74.8 Chronic cough R05 Assessment & Plan Assessment & Plan (1) Diabetes type 2, controlled: Code(s): E11.9 - Type 2 diabetes mellitus without complications Category: Medical Plan: A1c?6.6%.??Good?control.??Goal?is?less?than?7.0% Continue?current?medication Eye?exam?in?June?showed?no?diabetic?retinopathy.??Up?to?date (2) Essential hypertension: Code(s): I10 - Essential (primary) hypertension Category: Medical Plan: Blood?pressure?is?controlled.??Goal?is?less?than?140/90 Continue?current?medications (3) Elevated liver enzymes: Code(s): R74.8 - Abnormal levels of other serum enzymes Category: Medical Plan: Mildly?elevated?ALT?prior?lab?check Will?repeat?prior?to?next?visit?and?discuss?with?patient (4) Chronic cough: Code(s): R05 - Cough Category: Medical Plan: Ongoing?chronic?cough. Had?tried?stomach?acid?suppression?which?has?not?improved?the?cough. Followed?by?pulmonary?medicine?and??Lamonte?off? feels?this?likely?related?to?her?asthma No?recent?chest?x-ray?so?will?check?this to?rule?out?any?other?causes.??Will?call?patient?if?action?is?required Follow-up?with?Pulmonary?Medicine?as?recommended Orders: Orders Comprehensive [place]. Panel Fast Today R74.8 - Abnormal levels of other serum enzymes, Z00.00 - Encounter for general adult medical examination without abnormal findings Microalbumin, Random (w Creat) Today I10 - Essential (primary) hypertension XR chest 2V Today R05 - Cough
[2024-11-17 09:58] VITALS: BP 110/68; PULSE 97; RESP 16; TEMP 36.7; O2SAT 96; BMI 29.1
--- OUTSIDE RECORDS SUMMARY | 2024-11-17 10:01 | XMS_ITS | Patient Health Record ---
Author Organization [facility] Address [address] [place] [address] Care Team Providers Care Foundation Relations Manager Name Role Phone Verna Boothe Primary Care Provider Laith Robledo Unavailable [phone] REASON FOR REFERRAL No Information MEDICATIONS Medication SIG (Take, Route, Frequency, Duration) Notes Start Date End Date Status Suprep Bowel Prep 1 kit as directed Oral ly as directed for 1 dose 04/21/2015 Active Aspirin Adult Low Strength 81 MG 1 tablet Orally Once a day Active NIFEdipine ER 90 MG 1 tablet Orally Once a day Active Simvastatin 20 MG 1 tablet in the even ing Orally Once a day Active SOCIAL HISTORY Sex Assigned At : Social History Observation Description Sex Assigned At Unknown PROBLEMS Problem Type ICD Code Onset Dates Problem Status W/U Status Risk SNOMED Code Notes Problem Long-term (current) use of aspirin (V58.66) Active confirmed Already on aspirin (341582805) Problem H/O adenomatous polyp of colon (V12.72) Active confirmed History of polyp of colon (937181281) Problem Colon cancer screening (V76.51) Active confirmed Colon cancer screening (944236726) PLAN OF TREATMENT Future Test Test Name Order Date COLONOSCOPY 04/20/2015 Insurance Providers Payer Name Payer Address Payer Phone Subscriber Number Group Number Insured Name Patient Relationship to Insured Coverage Start Date Coverage End Date [facility] [address] [place], [place] [id number] GERRI MEDEIROS Self - patient is the insured MEDICAL (GENERAL) HISTORY Medical History History ICD Code Choledocholithiasis--ERCP's in 2002 and 2007 HTN Hyperlipidemia Denies PR,DM,CVA,Lung disease,renal dise ase Kidney stones 2 tubular adenomas removed during a scre ening colonoscopy in 2004 Surgical History Surgery Date(Month/Year) 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
== END 2024-11-17 10:19 | disposition home or self-care (01) ==
PROVIDERS: PCP Family Medicine; Visit Provider Family Medicine
DX: E11.9 Type 2 diabetes mellitus without complications (principal); I10 Essential (primary) hypertension; R74.8 Abnormal levels of other serum enzymes; R05.9 Cough, unspecified

== ENCOUNTER → 2024-11-17 09:30 | Outpatient (BNVA) | payer MEDICARE, BC, SELFPAY | PROVIDERS: PCP Family Medicine; Visit Provider Family Medicine | DX: E11.9 Type 2 diabetes mellitus without complications (principal); I10 Essential (primary) hypertension; R74.8 Abnormal levels of other serum enzymes; R05.9 Cough, unspecified | CPT/HCPCS: 99212 ==

== ENCOUNTER 2025-02-16 07:30 | Outpatient (REF) | payer MEDICARE, BC, SELFPAY ==
--- NOTE | ~2025-02-16 | XR_ITS ---
EXAMINATION: XR CHEST CLINICAL INFORMATION: R05 - Cough COMPARISON: December 01, 2020. TECHNIQUE: 2 views of the chest were obtained. FINDINGS: No consolidation, pleural effusion or pneumothorax. Pulmonary reticular pattern. Mild increased AP diameter is buttocks. Hyperinflated lungs. Cardiomediastinal silhouette size is normal. Calcified plaque thoracic aortic arch. Multilevel thoracic spondylosis. Osteopenia versus osteoporosis. Vascular clips right upper quadrant abdomen. XR/XR chest 2V IMPRESSION: Chronic interstitial lung disease without acute airspace disease. Electronically signed by: Olvin Villanueva MD 02/16/2025 07:55 AM EDT
== END 2025-02-16 07:31 | disposition home or self-care (01) ==
LOC: HO.LAB 07:30
PROVIDERS: PCP Family Medicine; Visit Provider Family Medicine
DX: R05.9 Cough, unspecified (principal); J84.9 Interstitial pulmonary disease, unspecified
CPT/HCPCS: 71046

== ENCOUNTER → 2025-02-16 07:35 | Outpatient (BNV) | payer MEDICARE, BC, SELFPAY | PROVIDERS: PCP Family Medicine; Visit Provider Radiology Diagnostic Radiology | DX: J84.9 Interstitial pulmonary disease, unspecified (principal) | CPT/HCPCS: 71046 ==

== ENCOUNTER 2025-02-22 07:10 | Outpatient (REF) | payer MEDICARE, BC, SELFPAY ==
--- OUTSIDE RECORDS SUMMARY | 2025-02-22 07:12 | XMS_ITS | Patient Health Record ---
Author Organization [facility] Address [address] [place] [address] Care Team Providers Care Electric Motor Winder Name Role Phone Verna Boothe Primary Care Provider Laith Robledo Unavailable [phone] Reason For Referral No Information Medications Medication SIG (Take, Route, Frequency, Duration) Notes [...] even ing Orally Once a day Active Problems Problem Type SNOMED Code ICD Code Onset Dates Problem Status W/U Status Risk Notes Problem Already on aspirin (441998157) Long-term (current) use of aspirin (V58.66) Active confirmed Problem Colon cancer screening (156639548) Colon cancer screening (V76.51) Active confirmed Problem History of polyp of colon (069953083) H/O adenomatous polyp of colon (V12.72) Active confirmed Plan Of Treatment Future Test Test Name Order Date COLONOSCOPY 04/20/2015 Insurance Providers Payer Name Payer Address Payer Phone Subscriber Number Group Number Insured Name Patient Relationship to Insured Coverage Start Date Coverage End Date [facility] [address] [place], [place] [id number] GERRI MEDEIROS Self - patient is the insured Medical (General) History Medical History History ICD Code Choledocholithiasis--ERCP's in 2002 and 2007 HTN Hyperlipidemia Denies NM,DM,CVA,Lung disease,renal dise ase Kidney stones 2 tubular adenomas removed during a scre ening colonoscopy in 2004 Surgical History Surgery Date(Month/Year) 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
[2025-02-22 07:50] LABS: Appearance Urine Cloudy; Color Urine Yellow; Glucose Urine UA Negative (Negative); Leukocyte Esterase Urine Large (3+) (Negative); Nitrite Urine Negative (Negative); PH 5.5 (5.0-9.0); Specific Gravity - Urine 1.015 (1.005-1.025); UMIC TRIGGER UA YES; Urine Blood Negative (Negative); Urine Ketones Negative (Negative); Urine Protein Negative (Neg-Trace)
[2025-02-22 07:54] LABS: Bacteria Urine 4+ (None Seen); Hyaline Casts Urine 0-2 /LPF (0-2); RBC Urine 0-2 /HPF (0-2); WBC Urine >50 /HPF (0-5)
[2025-02-22 08:19] LABS: Creatinine Urine 71.73 mg/dL; Microalbum/Creatinine Ratio Ur 18.1 ug/mg cr (<30)
[2025-02-22 08:25] LABS: Alanine Aminotransferase 28 U/L (0-31); Albumin Level 4.3 g/dL (3.5-5.0); Alkaline Phosphatase 94 U/L (39-117); Anion Gap 12 (12-20); Aspartate Amino Transferase 24 U/L (5-31); Bilirubin Total 0.6 mg/dL (0.0-1.0); Blood Urea Nitrogen 20 mg/dL (9-16); Carbon Dioxide 29 mmol/L (22-29); Chloride 107 mmol/L (96-108); Estimated Glomerular Filt Rate > 60; Glucose Fasting 158 mg/dL (60-99); Potassium 4.3 mmol/L (3.3-5.1); Sodium 144 mmol/L (135-145); Total Protein 7.1 g/dL (6.5-8.0)
== END 2025-02-22 07:11 | disposition home or self-care (01) ==
LOC: HO.LAB 07:10
PROVIDERS: PCP Family Medicine; Visit Provider Family Medicine
DX: Z00.00 Encounter for general adult medical examination without abnormal findings (principal); R74.8 Abnormal levels of other serum enzymes; I10 Essential (primary) hypertension
CPT/HCPCS: 36415; 80053; 81001; 82043; 82570

== ENCOUNTER 2025-03-04 08:23 | Outpatient (AMB) | payer MEDICARE, BC, SELFPAY ==
--- OUTSIDE RECORDS SUMMARY | 2025-03-04 08:42 | XMS_ITS | Patient Health Record ---
Author Organization [facility] Address [address] [place] [address] Care Team Providers Care Forestry Pilot Name Role Phone Verna Boothe Primary Care Provider Laith Robledo Unavailable [phone] Reason For Referral No Information Medications Medication [...] Status Risk Notes Problem Already on aspirin (304492128) Long-term (current) use of aspirin (V58.66) Active confirmed Problem Colon cancer screening (697433842) Colon cancer screening (V76.51) Active confirmed Problem History of polyp of colon (559705211) H/O adenomatous polyp of colon (V12.72) Active confirmed Plan Of Treatment Future Test Test Name Order Date COLONOSCOPY 04/20/2015 Insurance Providers Payer Name Payer Address Payer Phone Subscriber Number Group Number Insured Name Patient Relationship to Insured Coverage Start Date Coverage End Date [facility] [address] [place], [place] [id number] GERRI MEDEIROS Self - patient is the insured Medical (General) History Medical History History ICD Code Choledocholithiasis--ERCP's in 2002 and 2007 HTN Hyperlipidemia Denies DE,DM,CVA,Lung disease,renal dise ase Kidney stones 2 tubular adenomas removed during a scre ening colonoscopy in 2004 Surgical History Surgery Date(Month/Year) 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
--- NOTE | 2025-03-04 08:43 | A.OFFPC_ITS ---
Vital Signs 03/04/25 08:44 Height 5 ft 2 in Weight 156 lb 8 oz BMI 28.6 BP 120/70 Blood Pressure Location Rt brachial Position Sitting Respiration 14 Pulse 86 Pulse Source Pulse Oximeter Temp 97.9 F Temp Source Oral Pulse Oximetry (%) 97 Oxygen Delivery Method Room Air Intake Visit Reasons: f/u diabetes, HTN Intake Note: patient is scheduled for dm follow up Allergies No Known Allergies [No Known Allergies*] Allergy (Verified 03/04/25 08:44) Medication List - Last Reconciled 03/04/25 by Jose Luis Roe MD albuterol sulfate 90 mcg/actuation 2 puffs inhalation Q4-6H PRN atorvastatin 40 mg PO DAILY 90 days famotidine 20 mg PO BEDTIME 14 days fluticasone furoate-vilanterol 200-25 mcg/dose (Breo Ellipta) 1 inh inhalation DAILY hydrochlorothiazide 12.5 mg PO DAILY ipratropium bromide 2 sprays intranasal TID-QID PRN losartan 50 mg PO DAILY 90 days metformin 500 mg PO DAILY montelukast 10 mg PO DAILY 90 days nifedipine ER 30 mg PO DAILY 90 days nifedipine ER 90 mg PO DAILY 3 months omeprazole 40 mg (2 x 20 mg) PO DAILY Tobacco use date assessed: 01/29/24 Dental Screening Dental Screen Date: 06/01/24 HPI f/u diabetes, HTN HPI Details 74 y/o female presents to f/u diabetes, HTN. Prior A1c 11/17/24 6.6%. A1c today 03/04/25 is 6.6%. Blood pressure today 120/70, 86p. She is on losartan 50mg, HCTZ 12.5mg daily, nifedipine. Chest x-ray 02/16/25 for chronic cough. XR/XR chest 2V IMPRESSION: Chronic interstitial lung disease without acute airspace disease. She notes she tries to keep herself active. HPI Comments History of Present Illness Details Documentation assistance for Jose Luis Roe MD, was provided by Kurtis Stout,? Appraiser on 03/04/2025 at 8:59 AM EST. I, Dr. Roe, have read, observed, and verified documentation. ?? [facility] Medical History Renal calculi Renal cyst UTI (urinary tract infection) S/p nephrectomy Surgical History S/P cholecystectomy Hx of cataract surgery S/P PATRICIA-BSO Family History Father Stroke Cancer Mother Cancer HTN (hypertension) Social History Housing: House Patient Tobacco Use Status: Former Tobacco user e-Cigarette/Vaping Use: Never Used Second Hand Smoke Exposure: No service: No Current occupational status: retired Current occupational exposures/hazards: No Cognitive needs: No Hearing needs: No Vision needs: No Questionnaire Thrive Questionnaire Date Thrive assessed: 11/10/24 I am a: Patient What is your living situation today?: I have a steady place to live Within the past 12 months, did the food you bought not last and you didn't have the money to get more?: Never true Within the past 12 months, did you worry whether your food would run out before you got money to buy more?: Never true Do you have trouble paying for medicines?: No Do you have trouble getting transportation to medical appointments?: No Do you have trouble paying your heating and electricity bill?: No Do you have trouble taking care of your child, family member or friend?: No Do you have trouble with day-to-day activities such as bathing, preparing meals, shopping, managing finances, etc.?: No Are you currently unemployed and looking for a job?: No Are you interested in more education?: No Please select the resources that you would like help with: None Currently or been in a relationship where the following occur: No concerns reported THRIVE Score: 0 MARYSE-7 AMB Questionnaire MARYSE-7 Date MARYSE - 7 assessed: 06/01/24 Source: Developed by Drs. Laith Green, Noelle Garcia, Eder Martin and colleagues, with an educational raj from [employer]. Review of Systems Const Denies chills, Denies fatigue, Denies fever(s), Denies headache(s) and Denies weakness ENT Denies dizziness and Denies headache(s) Card Denies dyspnea Resp Denies cough, Denies dyspnea, Denies wheezing and Denies other (shortness of breath) Musc Denies numbness and Denies tingling Neuro Denies dizziness, Denies headache(s), Denies numbness, Denies tingling and Denies weakness Psych Denies anxiety and Denies depression Endo Denies fatigue Aller/Immun Denies wheezing Physical exam (Primary Care) Vital Signs: Last Vital Signs Temp 97.9 F 03/04/25 08:44 Pulse 86 03/04/25 08:44 Resp 14 03/04/25 08:44 BP 120/70 03/04/25 08:44 Pulse Ox 97 03/04/25 08:44 Oxygen Delivery Method Room Air 03/04/25 08:44 BMI result Body Mass Index 28.6 Tobacco/Smoking Status: Tobacco use Status Tobacco use date assessed 01/29/24 03/04/25 08:47 Patient Tobacco Use Status Former Tobacco user 03/04/25 08:47 e-Cigarette/Vaping Use Never Used 03/04/25 08:47 Thrive Assessment: Date of Thrive Assessment Date Thrive assessed 11/10/24 03/04/25 08:47 Currently or been in a relationship where the following occur: No concerns reported Const General: well developed; No acute distress Nutritional Appearance: well nourished Orientation/consciousness: patient oriented x3 HENMT Head: Yes normocephalic and Yes atraumatic Eyes General: appearance normal, both eyes and all related structures Pupils: Equal, round and reactive pupils present EOM: EOMs intact bilaterally Resp Effort & Inspection: normal respiratory effort Neuro General: patient oriented x3 and gait normal Cranial nerves: Yes Equal, round and reactive pupils present Psych Affect: normal affect Coding Level of Care Code Est Pt Level 4 (10154) Diagnoses Essential hypertension I10 Diabetes type 2, controlled E11.9 Chronic cough R05 Elevated liver enzymes R74.8 Assessment & Plan Assessment & Plan (1) Essential hypertension: Code(s): I10 - Essential (primary) hypertension Category: Medical Plan: Blood?pressure?is?well?controlled.??Goal?is?less?than?140/90 Continue?current?medication?regimen (2) Diabetes type 2, controlled: Code(s): E11.9 - Type 2 diabetes mellitus without complications Category: Medical Plan: A1c?6.6%.??Good?control.??Goal?is?less?than?7.0% Continue?current?medication Continue?diabetic?diet?and?exercise (3) Chronic cough: Code(s): R05 - Cough Category: Medical Plan: Ongoing?chronic?cough. Chest?x-ray?shows?some?interstitial?lung?disease Unclear?underlying?cause?though?she?does?have?GERD?and?this?may?be?an?underlyin g?cause?or?contributor. She?uses?omeprazole?but?still?gets?symptoms?at?nighttime Will?have?her?use?famotidine?when?she?gets?flare-ups?at?nighttime Advised?her?that?using?a?PPI?and?famotidine?could?con tinue?to?worsen?osteopenia/osteoporosis?so?she?will?use?famotidine?only?intermit tently?at?flare-ups. Also?advised?bed?risers?at?head?of?bed Follow-up?with?pulmonology?regarding?chronic?cough?and?her?asthma. (4) Elevated liver enzymes: Code(s): R74.8 - Abnormal levels of other serum enzymes Category: Medical Plan: Liver?enzyme?lab?work?ordered?which?she?will?get?drawn?prior?to?next?visit Orders: Orders Comprehensive [place]. Panel Fast Today R74.8 - Abnormal levels of other serum enzymes, Z00.00 - Encounter for general adult medical examination without abnormal findings UA CC w/rflx Micro + Cult Today Z00.00 - Encounter for general adult medical examination without abnormal findings, Z90.5 - Acquired absence of kidney Microalbumin, Random (w Creat) Today I10 - Essential (primary) hypertension, R80.9 - Proteinuria, unspecified
[2025-03-04 08:44] VITALS: BP 120/70; PULSE 86; RESP 14; TEMP 36.6; O2SAT 97; BMI 28.6
== END 2025-03-04 09:12 | disposition home or self-care (01) ==
LOC: HO.HMCFM 08:24
PROVIDERS: PCP Family Medicine; Visit Provider Family Medicine
DX: I10 Essential (primary) hypertension (principal); E11.9 Type 2 diabetes mellitus without complications; R05.9 Cough, unspecified; R74.8 Abnormal levels of other serum enzymes

== ENCOUNTER → 2025-03-04 08:23 | Outpatient (BNVA) | payer MEDICARE, BC, SELFPAY | PROVIDERS: PCP Family Medicine; Visit Provider Family Medicine | DX: I10 Essential (primary) hypertension (principal); E11.9 Type 2 diabetes mellitus without complications; R05.9 Cough, unspecified; R74.8 Abnormal levels of other serum enzymes | CPT/HCPCS: 83036; 99212 ==

== ENCOUNTER 2025-03-10 07:30 | Outpatient (REF) | payer MEDICARE, BC, SELFPAY ==
--- OUTSIDE RECORDS SUMMARY | 2025-03-10 07:32 | XMS_ITS | Patient Health Record ---
Author Organization [facility] Address [address] [place] [address] Care Team Providers Care Regulatory Assistant Name Role Phone Verna Boothe Primary Care Provider Laith Robledo Unavailable [phone] Reason For Referral No Information Medications Medication [...] Status Risk Notes Problem Already on aspirin (605846377) Long-term (current) use of aspirin (V58.66) Active confirmed Problem Colon cancer screening (561855195) Colon cancer screening (V76.51) Active confirmed Problem History of polyp of colon (248904280) H/O adenomatous polyp of colon (V12.72) Active confirmed Plan Of Treatment Future Test Test Name Order Date COLONOSCOPY 04/20/2015 Insurance Providers Payer Name Payer Address Payer Phone Subscriber Number Group Number Insured Name Patient Relationship to Insured Coverage Start Date Coverage End Date [facility] [address] [place], [place] [id number] GERRI MEDEIROS Self - patient is the insured Medical (General) History Medical History History ICD Code Choledocholithiasis--ERCP's in 2002 and 2007 HTN Hyperlipidemia Denies [place],DM,CVA,Lung disease,renal dise ase Kidney stones 2 tubular adenomas removed during a scre ening colonoscopy in 2004 Surgical History Surgery Date(Month/Year) 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
== END 2025-03-10 07:31 | disposition home or self-care (01) ==
LOC: HO.MAMMO 07:30
PROVIDERS: PCP Family Medicine; Visit Provider Family Medicine
DX: Z12.31 Encounter for screening mammogram for malignant neoplasm of breast (principal)
CPT/HCPCS: 77063; 77067

== ENCOUNTER → 2025-03-10 07:45 | Outpatient (BNV) | payer MEDICARE, BC, SELFPAY | PROVIDERS: PCP Family Medicine; Visit Provider Internal Medicine | DX: Z12.31 Encounter for screening mammogram for malignant neoplasm of breast (principal) | CPT/HCPCS: 77063; 77067 ==

== ENCOUNTER 2025-03-19 07:16 | Outpatient (REF) | payer MEDICARE, BC, SELFPAY ==
--- OUTSIDE RECORDS SUMMARY | 2025-03-19 07:18 | XMS_ITS | Patient Health Record ---
Author Organization [facility] Address [address] [place] [address] Care Team Providers Care Exchange Floor Manager Name Role Phone Verna Boothe Primary Care Provider Laith Robledo Unavailable [phone] Reason For Referral No Information Medications Medication [...] Status Risk Notes Problem Already on aspirin (554296661) Long-term (current) use of aspirin (V58.66) Active confirmed Problem Colon cancer screening (598543414) Colon cancer screening (V76.51) Active confirmed Problem H/O adenomatous polyp of colon (V12.72) Active confirmed Plan Of Treatment Future Test Test Name Order Date COLONOSCOPY 04/20/2015 Insurance Providers Payer Name Payer Address Payer Phone Subscriber Number Group Number Insured Name Patient Relationship to Insured Coverage Start Date Coverage End Date [facility] [address] [place], [place] [id number] GERRI MEDEIROS Self - patient is the insured Medical (General) History Medical History History ICD Code Choledocholithiasis--ERCP's in 2002 and 2007 HTN Hyperlipidemia Denies [place],DM,CVA,Lung disease,renal dise ase Kidney stones 2 tubular adenomas removed during a scre ening colonoscopy in 2004 Surgical History Surgery Date(Month/Year) 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
[2025-03-19 08:04] LABS: Appearance Urine Clear; Color Urine Yellow; Glucose Urine UA Negative (Negative); Leukocyte Esterase Urine Moderate (2+) (Negative); Nitrite Urine Positive (Negative); PH 7.5 (5.0-9.0); UMIC TRIGGER UACC YES; Urine Blood Negative (Negative); Urine Ketones Negative (Negative); Urine Protein Negative (Neg-Trace)
[2025-03-19 08:06] LABS: Bacteria Urine 4+ (None Seen); Hyaline Casts Urine 0-2 /LPF (0-2); RBC Urine 0-2 /HPF (0-2); UACC Culture Trigger YES
[2025-03-19 08:32] LABS: Alanine Aminotransferase 26 U/L (0-31); Albumin Level 4.3 g/dL (3.5-5.0); Alkaline Phosphatase 93 U/L (39-117); Anion Gap 13 (12-20); Aspartate Amino Transferase 20 U/L (5-31); Bilirubin Total 0.5 mg/dL (0.0-1.0); Blood Urea Nitrogen 17 mg/dL (9-16); Calcium 9.9 mg/dL (8.4-10.2); Carbon Dioxide 26 mmol/L (22-29); Chloride 109 mmol/L (96-108); Estimated Glomerular Filt Rate > 60; Glucose Fasting 153 mg/dL (60-99); Potassium 4.2 mmol/L (3.3-5.1); Sodium 144 mmol/L (135-145); Total Protein 6.8 g/dL (6.5-8.0)
[2025-03-19 09:02] LABS: Creatinine Urine 47.19 mg/dL; Microalbum/Creatinine Ratio Ur 12.7 ug/mg cr (<30)
== END 2025-03-19 07:17 | disposition home or self-care (01) ==
LOC: HO.LAB 07:16
PROVIDERS: PCP Family Medicine; Visit Provider Internal Medicine Nephrology
DX: Z00.00 Encounter for general adult medical examination without abnormal findings (principal); R74.8 Abnormal levels of other serum enzymes; I10 Essential (primary) hypertension; R80.9 Proteinuria, unspecified
CPT/HCPCS: 36415; 80053; 81001; 81003; 82043; 82570; 87086; 87088; 87186

== ENCOUNTER 2025-03-24 11:30 | Outpatient (AMB) | payer MEDICARE, BC, SELFPAY ==
--- NOTE | 2025-03-24 11:36 | HO.NEPHOV_ITS ---
Vital Signs 03/24/25 11:37 Height 5 ft 2 in Weight 156 lb 8 oz BMI 28.6 BP 110/60 Blood Pressure Location Rt brachial Position Sitting Pulse 114 H Pulse Source Pulse Oximeter Pulse Oximetry (%) 97 Oxygen Delivery Method Room Air Intake Visit Reasons: Acquired solitary kidney Senior Ui Web Developer Required: No Accompanied by: Self / Same As Patient Allergies No Known Allergies [No Known Allergies*] Allergy (Verified 03/24/25 11:37) HPI Comments Details: 74-year-old woman with longstanding hypertension and acquired solitary left kidney with history of nephrolithiasis had been evaluated and followed up renal cyst and renal stones. While she was in her 30s she underwent nephrectomy for nonfunctioning atrophic right kidney. She has had multiple urinary tract infections, currently has one & is on antibiotics . Her last ultrasonogram report reads as innumerable cyst replace in the left kidney. However a CT scan done a year ago did not reveal numerous cysts but there was 1 cyst. Overall she is doing well. She has no history of flank pain, hematuria, night sweats, pedal edema, passing of grit or gravel in the urine. Her BP is well controlled and her renal function remain at baseline. There were no other complaints at the time of this office visit [facility] Medical History Renal calculi Renal cyst UTI (urinary tract infection) S/p nephrectomy Surgical History S/P cholecystectomy Hx of cataract surgery S/P PATRICIA-BSO Family History Father Stroke Cancer Mother Cancer HTN (hypertension) Social History Housing: House Patient Tobacco Use Status: Former Tobacco user e-Cigarette/Vaping Use: Never Used Second Hand Smoke Exposure: No service: No Current occupational status: retired Current occupational exposures/hazards: No Cognitive needs: No Hearing needs: No Vision needs: No Review of Systems Const All systems reviewed & are unremarkable except as noted in HPI and below Physical Exam Vital Signs: Last Vital Signs Pulse 114 H 03/24/25 11:37 BP 110/60 03/24/25 11:37 Pulse Ox 97 03/24/25 11:37 Oxygen Delivery Method Room Air 03/24/25 11:37 BMI result Body Mass Index 28.6 Const General: comfortable and no acute distress Orientation/consciousness: patient oriented x3 HEENT Head: Yes normocephalic Mouth: Normal oral and palatal mucosa present Eyes EOM: EOMs intact bilaterally Neck Neck: Yes supple Resp Auscultation: clear to auscultation bilaterally Cardio Jugular venous distension: no JVD Rate: regular rate GI Palpation (GI): Soft to palpation Auscultation: normal bowel sounds General: Yes no CVA tenderness Back/Spine/Pelvis Back: no CVA tenderness Skin General skin exam: no rashes or lesions noted Neuro General: patient oriented x3 and moves all extremities Extrem General: Yes no pedal edema Results Reviewed Nephrology Results: Sodium 144 mmol/L (135-145) 03/19/25 Potassium 4.2 mmol/L (3.3-5.1) 03/19/25 Chloride 109 mmol/L (96-108) H 03/19/25 Carbon Dioxide 26 mmol/L (22-29) 03/19/25 BUN 17 mg/dL (9-16) H 03/19/25 Creatinine 0.72 mg/dL (0.5-1.4) 03/19/25 Calcium 9.9 mg/dL (8.4-10.2) 03/19/25 Urine Protein Negative mg/dL (Neg-Trace) 03/19/25 Urine Creatinine 47.19 mg/dL 03/19/25 Assessment & Plan Assessment & Plan (1) Acquired solitary kidney: Code(s): Z90.5 - Acquired absence of kidney Category: Medical (2) History of kidney stones: Code(s): Z87.442 - Personal history of urinary calculi Category: Medical Plan She has acquired solitary left kidney with hypertension and diabetes mellitus with essentially normal renal function. CT scan done in 2021 revealed 1 cyst on the left kidney however ultrasonogram done in June 2023 was reported has multiple renal cyst. It is unlikely that she would have developed multiple cyst within 1 year. However the previous ultrasonogram also with reported a questionable septated or complex cyst. She will require a follow-up CT scan at next visit to evaluate the renal cyst. She has had recurrent UTIs with a history of renal stones. Her BP is well controlled and her renal function is at baseline. Will get a 24 hour urine collection for stone studies in the future. She should be on a low-sodium diet and maintain good hydration. I did not make any other medication today. Follow-up lab work ordered. Answered all questions. Follow-up given Orders: Orders Urine Culture 6 Months Z87.44 - Personal history of urinary calculi, Z90.5 - Acquired absence of kidney UA and rflx microscopic 6 Months Z87.44 - Personal history of urinary calculi, Z90.5 - Acquired absence of kidney Blood Urea Nitrogen 6 Months Z87.442 - Personal history of urinary calculi, Z90.5 - Acquired absence of kidney Electrolytes 6 Months Z87.442 - Personal history of urinary calculi, Z90.5 - Acquired absence of kidney Calcium 6 Months Z87.442 - Personal history of urinary calculi, Z90.5 - Acquired absence of kidney Creatinine 6 Months Z87.442 - Personal history of urinary calculi, Z90.5 - Acquired absence of kidney Coding Level of Care Code Est Pt Level 4 (68142) Diagnoses Acquired solitary kidney Z90.5 History of kidney stones Z.44
[2025-03-24 11:37] VITALS: BP 110/60; PULSE 114; O2SAT 97; BMI 28.6
--- OUTSIDE RECORDS SUMMARY | 2025-03-24 12:25 | XMS_ITS | Patient Health Record ---
Author Organization [facility] Address [address] [place] [address] Care Team Providers Care Technical Fellow Name Role Phone Verna Boothe Primary Care Provider Laith Robledo Unavailable [phone] Reason For Referral No Information Medications Medication [...] Status Risk Notes Problem Already on aspirin (613585261) Long-term (current) use of aspirin (V58.66) Active confirmed Problem Colon cancer screening (617344233) Colon cancer screening (V76.51) Active confirmed Problem History of polyp of colon (711244688) H/O adenomatous polyp of colon (V12.72) Active confirmed Plan Of Treatment Future Test Test Name Order Date COLONOSCOPY 04/20/2015 Insurance Providers Payer Name Payer Address Payer Phone Subscriber Number Group Number Insured Name Patient Relationship to Insured Coverage Start Date Coverage End Date [facility] [address] [place], [place] [id number] GERRI MEDEIROS Self - patient is the insured Medical (General) History Medical History History ICD Code Choledocholithiasis--ERCP's in 2002 and 2007 HTN Hyperlipidemia Denies [place],DM,CVA,Lung disease,renal dise ase Kidney stones 2 tubular adenomas removed during a scre ening colonoscopy in 2004 Surgical History Surgery Date(Month/Year) 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
== END 2025-03-24 12:06 | disposition home or self-care (01) ==
LOC: HO.HKA 11:31
PROVIDERS: PCP Family Medicine; Visit Provider Internal Medicine Nephrology
DX: Z90.5 Acquired absence of kidney (principal); Z87.442 Personal history of urinary calculi
CPT/HCPCS: 99214

== ENCOUNTER → 2025-03-24 11:30 | Outpatient (BNVA) | payer MEDICARE, BC, SELFPAY | PROVIDERS: PCP Family Medicine; Visit Provider Internal Medicine Nephrology | DX: I10 Essential (primary) hypertension (principal); N39.0 Urinary tract infection, site not specified; Z79.2 Long term (current) use of antibiotics; Z90.5 Acquired absence of kidney; Z87.442 Personal history of urinary calculi | CPT/HCPCS: 99212 ==

== ENCOUNTER 2025-03-30 16:28 | Outpatient (REF) | payer MEDICARE, BC, SELFPAY ==
[2025-03-30 17:52] LABS: Appearance Urine Clear; Color Urine Yellow; Glucose Urine UA Negative (Negative); Leukocyte Esterase Urine Negative (Negative); Nitrite Urine Negative (Negative); PH 6.5 (5.0-9.0); Urine Blood Negative (Negative); Urine Ketones Negative (Negative); Urine Protein Negative (Neg-Trace)
[2025-03-30 18:06] LABS: Anion Gap 14 (12-20); Blood Urea Nitrogen 19 mg/dL (9-16); Carbon Dioxide 26 mmol/L (22-29); Chloride 103 mmol/L (96-108); Estimated Glomerular Filt Rate > 60; Potassium 3.8 mmol/L (3.3-5.1); Sodium 139 mmol/L (135-145)
--- OUTSIDE RECORDS SUMMARY | 2025-03-30 19:03 | XMS_ITS | Patient Health Record ---
Author Organization [facility] Address [address] [place] [address] Care Team Providers Care Dance Professor Name Role Phone Verna Boothe Primary Care Provider Laith Robledo Unavailable [phone] Reason For Referral No Information Medications Medication [...] Status Risk Notes Problem Already on aspirin (453431474) Long-term (current) use of aspirin (V58.66) Active confirmed Problem Colon cancer screening (607408263) Colon cancer screening (V76.51) Active confirmed Problem History of polyp of colon (066922445) H/O adenomatous polyp of colon (V12.72) Active confirmed Plan Of Treatment Future Test Test Name Order Date COLONOSCOPY 04/20/2015 Insurance Providers Payer Name Payer Address Payer Phone Subscriber Number Group Number Insured Name Patient Relationship to Insured Coverage Start Date Coverage End Date [facility] [address] [place], [place] [id number] GERRI MEDEIROS Self - patient is the insured Medical (General) History Medical History History ICD Code Choledocholithiasis--ERCP's in 2002 and 2007 HTN Hyperlipidemia Denies [place],DM,CVA,Lung disease,renal dise ase Kidney stones 2 tubular adenomas removed during a scre ening colonoscopy in 2004 Surgical History Surgery Date(Month/Year) 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
== END 2025-03-30 16:29 | disposition home or self-care (01) ==
LOC: HO.LAB 16:28
PROVIDERS: Internal Medicine Nephrology; PCP Family Medicine; Visit Provider Nurse Practitioner Family
DX: Q61.02 Congenital multiple renal cysts (principal); Z87.442 Personal history of urinary calculi; Z90.5 Acquired absence of kidney; R39.9 Unspecified symptoms and signs involving the genitourinary system
CPT/HCPCS: 36415; 80051; 81003; 82565; 84520

== ENCOUNTER 2025-04-22 12:33 | Outpatient (AMB) | payer MEDICARE, BC, SELFPAY ==
--- NOTE | 2025-04-22 12:47 | A.OFFVIS_ITS ---
Intake Visit Reasons: Recent UTI Intake Note: Patient is present for follow-up Urology Med: None Antibiotic Allergy: None Blood Thinner: None PVR:107ml [employer] Required: No Accompanied by: Self / Same As Patient Allergies No Known Allergies (No Known Allergies*) Allergy (Verified 04/22/25 13:22) Medication List - Last Reconciled 04/22/25 by Kathya Green MD albuterol sulfate 90 mcg/actuation 2 puffs inhalation Q4-6H PRN atorvastatin 40 mg PO DAILY 90 days fluticasone furoate-vilanterol 200-25 mcg/dose (Breo Ellipta) 1 inh inhalation DAILY hydrochlorothiazide 12.5 mg PO DAILY ipratropium bromide 2 sprays intranasal TID-QID PRN losartan 50 mg PO DAILY 90 days metformin 500 mg PO DAILY montelukast 10 mg PO DAILY 90 days nifedipine ER 30 mg PO DAILY 90 days nifedipine ER 90 mg PO DAILY 3 months omeprazole 40 mg (2 x 20 mg) PO DAILY HPI Comments Details: 04/22/25--Holley is a 75-year-old female with 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 She has history of nephrolithiasis. Recent UTI. History of Present Illness - The patient is a 75-year-old female presenting with follow-up for kidney health and recent urinary tract infection. - History of right kidney simple nephrectomy due to a nonfunctional kidney, resulting in a solitary left kidney with a Bosniak type 2 renal cyst. - History of nephrolithiasis, managed under nephrology care. - Recently treated for a urinary tract infection with antibiotics, with no recurrence noted. - History of diabetes, regularly monitored by nephrology. 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 - Refer the patient to gynecology for evaluation 10/25/24--Holley is a 74-year-old female who presents Telehealth today to the office for a follow-up for solitary left kidney, history of kidney stones. CTAP-10/13/24--Solitary left kidney with moderate size cyst with wall calcification type II Bosniak. No radiopaque renal calculi seen. 08/26/2023?PMH: DM, Htn, h/o hyst. She is followed today for US results. 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 Patient has a history of kidney stones and renal cysts. She was last seen by me on 01/24/2023, and advised on diet to decrease risk for kidney stones including adequate fluid hydration. She denies dysuria, on questioning states dull ache in left kidney area. In review of the US there is multiple renal cyst and possible kidney stones comparing this to prior CAT scan from 08/22/22 there was a 4.6x4.6 cm complex cyst with peripheral calcification along the wall. 08/26/2023: Evaluation today--UA-- leukocytes: negative; Nitrite: positive. 08/26/23: Plan: Refer to nephrology. Nitrite positive urine--Prescribed Augmentin 500 mg twice a day for 7 days. pending urine c/s Diet Modification. Advised to consume adequate amount of water. Recommended to increase citrate in diet, (add lemon 1/2 cup, to water) Patient education material regarding dietary recommendation for preventing renal calculi was provided. Acquired Solitary Kidney. Kidney Cyst. --Will monitor; Follow-up in one year with non contrast CT scan. Review of charts: 09/28/22--24 hour urine results: Total volume 1.57 liters, Calcium 133 mg; Oxalate 19 mg, Sodium 186, Citrate 464 mg. PFSH Medical History Renal calculi Renal cyst UTI (urinary tract infection) S/p nephrectomy Surgical History S/P cholecystectomy Hx of cataract surgery S/P PATRICIA-BSO Family History Father Stroke Cancer Mother Cancer HTN (hypertension) Social History Housing: House Patient Tobacco Use Status: Former Tobacco user e-Cigarette/Vaping Use: Never Used Second Hand Smoke Exposure: No service: No Current occupational status: retired Current occupational exposures/hazards: No Cognitive needs: No Hearing needs: No Vision needs: No Review of Systems Const All systems reviewed & are unremarkable except as noted in HPI and below Reports no additional complaints Eyes Reports no additional complaints ENT Reports no additional complaints Card Reports no additional complaints Resp Reports no additional complaints GI Reports no additional complaints Reports as per HPI Musc Reports no additional complaints Skin/Breast Reports system reviewed and no additional complaints, except as documented Neuro Reports no additional complaints Psych Reports no additional complaints Endo Reports no additional complaints Agustín/Lymph Reports no additional complaints Aller/Immun Reports no additional complaints Results Reviewed Results Reviewed: Collected: 03/19/25-UNK Status: COMP Req#: [id number] Received: 03/19/25-1022 Source: [facility] [[email or web address] Sp Desc: Clean Cat Subm Dr: Jose Luis Roe MD Ordered: Urine Culture Procedure Result Verified Urine Culture Final 03/22/25 Organism 1 Escherichia coli Quant > 100,000 cfu/mL E coli M.I.C. RX --------- --- Ampicillin 4 S Cefazolin (Urine) 4 S Cefepime <=0.12 S Ceftriaxone <=0.25 S Ciprofloxacin <=0.06 S Gentamicin <=1 S Nitrofurantoin 64 I Trimethoprim/Sulfamethoxazole <=20 S Date of Service: 10/13/24 CT ABDOMEN AND PELVIS WITHOUT CONTRAST CLINICAL INFORMATION: Calculus of kidney COMPARISON: CT abdomen pelvis 08/22/2022 TECHNIQUE: Multidetector volumetric imaging was performed from the superior aspect of the liver through the pubic symphysis. Sagittal and coronal reformatted images were obtained on the technologist's workstation. This CT examination was performed using dose optimization techniques as appropriate, variously including the following: *Automated exposure control *Adjustment of mA and/or kV according to patient size (this includes techniques or standardized protocols for targeted exams where dose is matched to indication/reason for exam; i.e. extremities or head) *Use of iterative reconstruction technique DLP: 413 mGy-cm FINDINGS: LUNG BASES: The lung bases are clear. Heart size is normal. LIVER, GALLBLADDER, AND BILIARY TREE: The liver is normal size, shape but mildly enlarged. No focal lesion or intrahepatic ductal dilatation seen. The gallbladder has been surgically removed. PANCREAS: Unremarkable. SPLEEN: Unremarkable. ADRENAL GLANDS: There is a 1.4 center left adrenal lesion measuring -20 Hounsfield units and a 1.6 cm right adrenal lesion measuring 0.46 cm. Both are benign in etiology. KIDNEYS AND URETERS: The right kidney is absent. Left kidney measures 12.3 cm in length. There is an exophytic bilobed cyst with peripheral wall calcification measuring 6.2 x 5.6 x 6.48 cm. BLADDER: Unremarkable. GASTROINTESTINAL TRACT: There is moderate scattered stool and gas in colon without distention. The small bowel loops are normal caliber. Appendix is normal caliber. There is no free air or free fluid. ABDOMINAL WALL: No significant hernia is appreciated. LYMPH NODES: Normal. VASCULAR: Unremarkable. PELVIC VISCERA: Unremarkable. OSSEOUS STRUCTURES: No aggressive lytic or sclerotic process seen. Mild bilateral L4-5 and L5-S1 facet joint arthropathy is noted without aggressive lytic or sclerotic process seen. IMPRESSION: Solitary left kidney with moderate size cyst with wall calcification type II Bosniak. No radiopaque renal calculi seen. Date of Service: 07/12/23 EXAMINATION: US RETROPERITONEAL LIMITED (RENAL ONLY) CLINICAL INFORMATION: Cyst of kidney, acquired. COMPARISON: CT abdomen and pelvis 08/22/2022. Renal ultrasound 07/09/2022 and 11/23/2021. X-ray KUB 02/22/2020 and 02/10/2020. FINDINGS: RIGHT KIDNEY: Surgically absent. There is hypoechoic 1.3 x 1.6 x 1.5 cm focus, most likely seen on the CT scan from August 2022 adrenal gland LEFT KIDNEY: 13.4 x 6.4 x 5.4 cm (SAG x AP x TRV). The left kidney completely replaced by numerous cysts with the largest in the upper pole measured 5.8 x 4.6 x 5.7 cm, 2.1 x 2.1 x 2.2 cm, 2.0 x 1.1 x 1.5 cm. There is 1.3 x 1.1 x 1.4 cm cyst in the lower pole there is 0.5 x 0.4 x 0.6 cm stone in the upper pole and 0.4 x 0.4 x 0.5 cm stone in the upper pole there is pelvic fullness and multiple echogenic foci seen. IMPRESSION: 1. Adrenal gland nodule. 2. Innumerable cysts in the left kidney and nephrolithiasis, correlate with CT scan Assessment & Plan Assessment & Plan (1) Acquired complex cyst of kidney: Code(s): N28.1 - Cyst of kidney, acquired Category: Medical (2) History of kidney stones: Code(s): Z87.442 - Personal history of urinary calculi Category: Medical (3) Acquired solitary kidney: Code(s): Z90.5 - Acquired absence of kidney Category: Medical (4) Multiple renal cysts: Code(s): Q61.02 - Congenital multiple renal cysts Category: Medical Plan Diet Modification. Advised to consume adequate amount of water. Acquired Solitary Kidney. Kidney Cyst. --Will monitor; Plan - Schedule imaging for the solitary left kidney monitor renal cysts. - Refer the patient to gynecology for evaluation - Continue regular nephrology follow-ups for diabetes management and kidney health. - Advise the patient to report any new urinary symptoms or concerns promptly. Orders: Orders CT abdomen wo IV con 5 Months N28.1 - Cyst of kidney, acquired, Q61.02 - Congenital multiple renal cysts, Z90.5 - Acquired absence of kidney Referrals [facility] Referral R68.89 - Other general symptoms and signs Medications: Discontinued nitrofurantoin monohyd/m-cryst 100 mg (Macrobid) must administer with a meal/food Discontinued Reason: Patient Completed Course 100 mg PO BID 7 days 14 caps 0RF Patient Instructions: The patient had an opportunity to ask questions regarding treatment plan. The patient expressed understanding and agreement with the above treatment plan. The patient is aware they should contact our office by phone for worsening of their current condition or the appearance of new symptoms. Compliance is encouraged with any medications and followup testing that is ordered. It is a privilege to be allowed the opportunity to participate in the urologic care of your patient. If you have any questions or concerns regarding treatment for the above conditions please do not hesitate to contact me. The office telephone contact is [phone]. This note is constructed in part using voice recognition software. While every effort has been made to ensure accuracy production or plant engineer errors may have been included. Yours sincerely, Kathya Green MD Scribe Plan - Not visible on output: Patient was informed and verbally consented to the use of an ambient scribe for clinic note documentation during this visit. Coding Level of Care Code Est Pt Level 4 (24130) Complex EM visit Add On G2211 Diagnoses Acquired complex cyst of kidney N28.1 History of kidney stones Z87.442 Acquired solitary kidney Z90.5 Multiple renal cysts Q61.02
--- OUTSIDE RECORDS SUMMARY | 2025-04-22 12:47 | XMS_ITS | Patient Health Record ---
Author Organization [facility] Address [address] [place] [address] Care Team Providers Care Rn Transition Name Role Phone Verna Boothe Primary Care Provider Laith Robledo Unavailable [phone] Reason For Referral No Information Medications Medication [...] Status Risk Notes Problem Already on aspirin (557576145) Long-term (current) use of aspirin (V58.66) Active confirmed Problem Colon cancer screening (220479318) Colon cancer screening (V76.51) Active confirmed Problem History of polyp of colon (445804628) H/O adenomatous polyp of colon (V12.72) Active confirmed Plan Of Treatment Future Test Test Name Order Date COLONOSCOPY 04/20/2015 Insurance Providers Payer Name Payer Address Payer Phone Subscriber Number Group Number Insured Name Patient Relationship to Insured Coverage Start Date Coverage End Date [facility] [address] [place], [place] [id number] GERRI MEDEIROS Self - patient is the insured Medical (General) History Medical History History ICD Code Choledocholithiasis--ERCP's in 2002 and 2007 HTN Hyperlipidemia Denies [place],DM,CVA,Lung disease,renal dise ase Kidney stones 2 tubular adenomas removed during a scre ening colonoscopy in 2004 Surgical History Surgery Date(Month/Year) 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
== END 2025-04-22 13:36 | disposition home or self-care (01) ==
LOC: HO.HUSH 12:34
PROVIDERS: PCP Family Medicine; Visit Provider Urology
DX: N28.1 Cyst of kidney, acquired (principal); Z87.442 Personal history of urinary calculi; Z90.5 Acquired absence of kidney; R39.9 Unspecified symptoms and signs involving the genitourinary system
CPT/HCPCS: 99214; G2211

== ENCOUNTER → 2025-04-22 12:33 | Outpatient (BNVA) | payer MEDICARE, BC, SELFPAY | PROVIDERS: PCP Family Medicine; Visit Provider Urology | DX: Q61.02 Congenital multiple renal cysts (principal); N20.0 Calculus of kidney; Z90.5 Acquired absence of kidney; Z79.899 Other long term (current) drug therapy; Z87.442 Personal history of urinary calculi | CPT/HCPCS: 81003; 99212 ==

== ENCOUNTER 2025-05-05 13:40 | Outpatient (AMB) | payer MEDICARE, BC, SELFPAY ==
[2025-05-05 13:48] VITALS: BP 122/60; PULSE 99; O2SAT 93; BMI 28.3
--- NOTE | 2025-05-05 13:48 | A.OFFVIS_ITS ---
Vital Signs 05/05/25 13:48 Height 5 ft 2 in Weight 155 lb BMI 28.3 BP 122/60 Blood Pressure Location Rt brachial Position Sitting Pulse 99 Pulse Source Pulse Oximeter Pulse Oximetry (%) 93 Oxygen Delivery Method Room Air Intake Visit Reasons: Cough Allergies No Known Allergies (No Known Allergies*) Allergy (Verified 05/05/25 13:56) HPI HPI Cough: Details: 74-year-old lady, former minimal smoker, quit over 35 years prior with underlying history of chronic cough ongoing for 5 years, intermittently productive of small amount of clear sputum.? Patient continues to use Prilosec now once a day with good control of her underlying GERD.?She continues to use CPAP with good control of her underlying sleep apnea symptoms. Her asthma and allergy symptoms with improved control on Breo 200 albuterol MDI, however she still his recurrent cough. She continues on nasal ipratropium as needed. After the last office visit patient had allergy testing that showed underlying allergic to her cough that is seasonal. She did have several months without symptoms that has started to recover the last months. [facility] Medical History Renal calculi Renal cyst UTI (urinary tract infection) S/p nephrectomy Surgical History S/P cholecystectomy Hx of cataract surgery S/P PATRICIA-BSO Family History Father Stroke Cancer Mother Cancer HTN (hypertension) Social History Housing: House Patient Tobacco Use Status: Former Tobacco user e-Cigarette/Vaping Use: Never Used Second Hand Smoke Exposure: No service: No Current occupational status: retired Current occupational exposures/hazards: No Cognitive needs: No Hearing needs: No Vision needs: No Review of Systems Const Denies daytime sleepiness, Denies excessive sweating, Denies fatigue, Denies fever(s), Denies lethargy, Denies malaise, Denies night sweats, Denies snoring and Denies weight loss Eyes Denies blurry vision and Denies itchy eyes ENT Denies nasal congestion, Denies post nasal drip, Denies sinus pain, Denies sinus pressure and Denies other ( Thrush) Card Denies chest pain, Denies pedal edema, Denies dyspnea, Denies orthopnea and Denies paroxysmal nocturnal dyspnea Resp Reports cough, Denies hemoptysis, Denies excessive phlegm production, Denies dyspnea, Denies snoring and Denies wheezing GI Denies abdominal pain and Denies heartburn Musc Denies myalgias, Denies arthralgias and Denies joint swelling Skin/Breast Denies rash Neuro Denies memory loss and Denies seizure-like activity Psych Denies abnormal sleep pattern, Denies anxiety and Denies memory loss Endo Denies excessive sweating, Denies fatigue and Denies heat intolerance Agustín/Lymph Denies easy bruising Aller/Immun Denies itchy eyes, Denies seasonal rhinorrhea and Denies wheezing Physical Exam Vital Signs: Last Vital Signs Pulse 99 05/05/25 13:48 BP 122/60 05/05/25 13:48 Pulse Ox 93 05/05/25 13:48 Oxygen Delivery Method Room Air 05/05/25 13:48 BMI result Body Mass Index 28.3 Const General: no acute distress and alert Nutritional Appearance: not obese Orientation/consciousness: Other orientation findings ( oriented) HEENT Head: Yes atraumatic Eyes General: appearance normal, both eyes and all related structures Sclerae: sclerae normal EOM: EOMs intact bilaterally Neck Neck: Yes supple Lymphatic: no lymphadenopathy noted Resp Effort & Inspection: normal respiratory effort and no use of accessory muscles Auscultation: clear to auscultation bilaterally Cardio Rate: regular rate Rhythm: regular rhythm Heart sounds: no gallops, no murmurs and no rubs Skin General skin exam: other ( warm) Extrem General: No clubbing, No cyanosis and No edema Assessment & Plan Assessment & Plan (1) Asthma: Code(s): J45.909 - Unspecified asthma, uncomplicated Category: Medical Plan: Controlled on current regimen of Breo and albuterol MDI. Continue current regimen. (2) Chronic cough: Code(s): R05 - Cough Category: Medical Plan: Seasonal, significant allergic component, now with improved control on nasal ipratropium. (3) ERIC (obstructive sleep apnea): Code(s): G47.33 - Obstructive sleep apnea (adult) (pediatric) Category: Medical Plan: Reasonable control on patient use her CPAP. Patient has been encouraged to be more compliant with her CPAP. (4) GERD (gastroesophageal reflux disease): Code(s): K21.9 - Gastro-esophageal reflux disease without esophagitis Category: Medical Plan: Controlled on current omeprazole therapy. Continue PPI. Coding Level of Care Code Est Pt Level 4 (01462) Complex EM visit Add On G2211 Diagnoses Asthma J45.909 Chronic cough R05 ERIC (obstructive sleep apnea) G47.33 GERD (gastroesophageal reflux disease) K21.9
--- OUTSIDE RECORDS SUMMARY | 2025-05-05 14:33 | XMS_ITS | Patient Health Record ---
Author Organization [facility] Address [address] [place] [address] Care Team Providers Care Hvac Design Engineer Name Role Phone Verna Boothe Primary Care Provider Laith Robledo Unavailable [phone] Reason For Referral No Information Medications Medication [...] Status Risk Notes Problem Already on aspirin (758550630) Long-term (current) use of aspirin (V58.66) Active confirmed Problem Colon cancer screening (123287615) Colon cancer screening (V76.51) Active confirmed Problem History of polyp of colon (822658096) H/O adenomatous polyp of colon (V12.72) Active confirmed Plan Of Treatment Future Test Test Name Order Date COLONOSCOPY 04/20/2015 Insurance Providers Payer Name Payer Address Payer Phone Subscriber Number Group Number Insured Name Patient Relationship to Insured Coverage Start Date Coverage End Date [facility] [address] [place], [place] [id number] GERRI MEDEIROS Self - patient is the insured Medical (General) History Medical History History ICD Code Choledocholithiasis--ERCP's in 2002 and 2007 HTN Hyperlipidemia Denies LA,DM,CVA,Lung disease,renal dise ase Kidney stones 2 tubular adenomas removed during a scre ening colonoscopy in 2004 Surgical History Surgery Date(Month/Year) 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
== END 2025-05-05 14:04 | disposition home or self-care (01) ==
LOC: HO.HPS 13:41
PROVIDERS: PCP Family Medicine; Visit Provider Internal Medicine Pulmonary Disease
DX: J45.909 Unspecified asthma, uncomplicated (principal); R05.9 Cough, unspecified; G47.33 Obstructive sleep apnea (adult) (pediatric); K21.9 Gastro-esophageal reflux disease without esophagitis
CPT/HCPCS: 99214; G2211

== ENCOUNTER → 2025-05-05 13:40 | Outpatient (BNVA) | payer MEDICARE, BC, SELFPAY | PROVIDERS: PCP Family Medicine; Visit Provider Internal Medicine Pulmonary Disease | DX: R05.3 Chronic cough (principal); J45.909 Unspecified asthma, uncomplicated; G47.33 Obstructive sleep apnea (adult) (pediatric); K21.9 Gastro-esophageal reflux disease without esophagitis | CPT/HCPCS: 99212 ==

== ENCOUNTER 2025-06-19 06:54 | Outpatient (REF) | payer MEDICARE, BC, SELFPAY ==
[2025-06-19 07:30] LABS: Appearance Urine Cloudy; Glucose Urine UA Negative (Negative); PH 5.5 (5.0-9.0); Specific Gravity - Urine 1.020 (1.005-1.025); UMIC TRIGGER UACC YES
[2025-06-19 07:32] LABS: UACC Culture Trigger YES
== END 2025-06-19 06:55 | disposition home or self-care (01) ==
LOC: HO.LAB 06:54
PROVIDERS: PCP Family Medicine; Visit Provider Family Medicine
DX: Z00.00 Encounter for general adult medical examination without abnormal findings (principal); Z90.5 Acquired absence of kidney
CPT/HCPCS: 81001; 87086

== ENCOUNTER 2025-07-09 14:25 | Outpatient (AMB) | payer MEDICARE, BC, SELFPAY ==
--- NOTE | 2025-07-09 14:26 | A.OFFPC_ITS ---
Vital Signs 07/09/25 14:28 Height 5 ft 2 in Weight 162 lb BMI 29.6 BP 136/68 Blood Pressure Location Rt brachial Position Sitting Pulse 106 H Pulse Source Pulse Oximeter Pulse Oximetry (%) 95 Oxygen Delivery Method Room Air Intake Visit Reasons: f/u HTN, DM, Elevated Liver Enzymes Allergies No Known Allergies (No Known Allergies*) Allergy (Verified 07/09/25 14:30) Tobacco use date assessed: 07/09/25 Fall risk assessment: No Falls in past year Last assessed Fall Risk: 07/09/25 Dental Screening Dental Screen Date: 07/09/25 Did you have a dental visit in the last 12 months?: Yes Did you have a dental problem in the last 6 months where you did not have access to dental care?: No Was dental information given to patient?: Patient has dentist HPI f/u HTN, DM, Elevated Liver Enzymes HPI Details 75 y/o female presents to f/u HTN, diabe jacoby, liver enzymes. Last A1c 03/04/25 6.6%. A1c today 07/09/25 is 6.5%. BP today 136/68, 106p. Liver enzymes 03/19/25 were within normal range. Pt reports cough has improved and she feels it was from seasonal allergies. [facility] Medical History Renal calculi Renal cyst UTI (urinary tract infection) S/p nephrectomy Surgical History S/P cholecystectomy Hx of cataract surgery S/P PATRICIA-BSO Family History Father Stroke Cancer Mother Cancer HTN (hypertension) Social History Housing: House Patient Tobacco Use Status: Former Tobacco user e-Cigarette/Vaping Use: Never Used Second Hand Smoke Exposure: No service: No Current occupational status: retired Current occupational exposures/hazards: No Cognitive needs: No Hearing needs: No Vision needs: No Questionnaire PHQ-9 Over the last 2 weeks, how often have you been bothered by any of the following problems? 1. Little interest or pleasure in doing things: not at all 2. Feeling down, depressed, or hopeless: not at all 3. Trouble falling or staying asleep, or sleeping too much: not at all 4. Feeling tired or having little energy: not at all 5. Poor appetite or overeating: not at all 6. Feeling bad about yourself - or that you are a failure or have let yourself or your family down: not at all 7. Trouble concentrating on things, such as reading the newspaper or watching television: not at all 8. Moving or speaking so slowly that other people could have noticed. Or the opposite - being so fidgety or restless that you have been moving around a lot more than usual: not at all 9. Thoughts that you would be better off or of hurting yourself in some way: not at all Total score: 0 Source: Developed by Drs. Laith Green, Noelle Garcia, Eder Martin and colleagues, with an educational raj from [employer]. Thrive Questionnaire Date Thrive assessed: 11/10/24 I am a: Patient What is your living situation today?: I have a steady place to live Within the past 12 months, did the food you bought not last and you didn't have the money to get more?: Never true Within the past 12 months, did you worry whether your food would run out before you got money to buy more?: Never true Do you have trouble paying for medicines?: No Do you have trouble getting transportation to medical appointments?: No Do you have trouble paying your heating and electricity bill?: No Do you have trouble taking care of your child, family member or friend?: No Do you have trouble with day-to-day activities such as bathing, preparing meals, shopping, managing finances, etc.?: No Are you currently unemployed and looking for a job?: No Are you interested in more education?: No Please select the resources that you would like help with: None Currently or been in a relationship where the following occur: No concerns reported THRIVE Score: 0 AUDIT C Alcohol Use Questionnaire (AUDIT-C) 1. How often do you have a drink containing alcohol?: 2-3 times a week 2. How many drinks containing alcohol do you have on a typical day when you are drinking?: 1 or 2 3. How often do you have six or more drinks on one occasion?: Never Total Score: 3 MARYSE-7 AMB Questionnaire MARYSE-7 Date MARYSE - 7 assessed: 11/17/24 Feeling nervous, anxious, or on edge: 0 = Not at all Not being able to stop or control worryin = Not at all Worrying too much about different things: 0 = Not at all Trouble relaxin = Not at all Being so restless that it is hard to sit still: 0 = Not at all Becoming easily annoyed or irritable: 0 = Not at all Feeling afraid as if something awful might happen: 0 = Not at all Total MARYSE-7 score (0-4 normal; 5-9 mild; 10-14 moderate; 15-21 severe): 0 Source: Developed by Drs. Laith Green, Noelle Garcia, Eder Martin and colleagues, with an educational raj from [employer]. Review of Systems Const Denies chills, Denies fatigue, Denies fever(s), Denies headache(s) and Denies weakness ENT Denies dizziness and Denies headache(s) Card Denies dyspnea Resp Denies cough, Denies dyspnea, Denies wheezing and Denies other (shortness of breath) Musc Denies numbness and Denies tingling Neuro Denies dizziness, Denies headache(s), Denies numbness, Denies tingling and Denies weakness Psych Denies anxiety and Denies depression Endo Denies fatigue Aller/Immun Denies wheezing Physical exam (Primary Care) Vital Signs: Last Vital Signs Pulse 106 H 07/09/25 14:28 BP 136/68 07/09/25 14:28 Pulse Ox 95 07/09/25 14:28 Oxygen Delivery Method Room Air 07/09/25 14:28 BMI result Body Mass Index 29.6 Tobacco/Smoking Status: Tobacco use Status Tobacco use date assessed 07/09/25 07/09/25 14:33 Patient Tobacco Use Status Former Tobacco user 07/09/25 14:27 e-Cigarette/Vaping Use Never Used 07/09/25 14:27 PHQ-9: PHQ-9 Score PHQ-9: Total score 0 07/09/25 14:45 Thrive Assessment: Date of Thrive Assessment Date Thrive assessed 11/10/24 07/09/25 14:27 Currently or been in a relationship where the following occur: No concerns reported Const General: well developed; No acute distress Nutritional Appearance: well nourished Orientation/consciousness: patient oriented x3 HENMT Head: Yes normocephalic and Yes atraumatic Eyes General: appearance normal, both eyes and all related structures Pupils: Equal, round and reactive pupils present EOM: EOMs intact bilaterally Resp Effort & Inspection: normal respiratory effort Auscultation: clear to auscultation bilaterally Cardio Rate: regular rate Rhythm: regular rhythm Heart sounds: S1 normal heart sound present, S2 normal heart sound present, no gallops, no murmurs and no rubs Neuro General: patient oriented x3 and gait normal Cranial nerves: Yes Equal, round and reactive pupils present Psych Affect: normal affect Results AMB Hemoglobin A1c AMB Hemoglobin A1c 6.5 % Last Edit by Sharmaine Amado CMA on 07/09/25 14:45 Results Reviewed Results Reviewed: Laboratory Last Values Hgb A1c (Clinic) 6.5 % (4.0-6.0) H 07/09/25 14:35 Coding Level of Care Code Est Pt Level 4 (32808) Diagnoses Essential hypertension I10 Diabetes type 2, controlled E11.9 Chronic cough R05 Multiple renal cysts Q61.02 Assessment & Plan Assessment & Plan (1) Essential hypertension: Code(s): I10 - Essential (primary) hypertension Category: Medical Plan: Blood pressure is controlled. Goal is less than 140/90 Continue current medications Watch salt and sodium in diet Work on weight and exercise (2) Diabetes type 2, controlled: Code(s): E11.9 - Type 2 diabetes mellitus without complications Category: Medical Plan: A1c 6.5%. Good control. Goal is less than 7.0% Continue current medications (3) Chronic cough: Code(s): R05 - Cough Category: Medical Plan: Patient had chronic cough at last visit She is using her albuterol and ipratropium inhaled medications. She notes that symptoms are always worse during seasons when she gets allergies We discussed she may want to anticipate knees seasons and start an antihistamine such as Zyrtec. Could also consider montelukast as she does have asthma. Currently symptoms have abated. 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
[2025-07-09 14:28] VITALS: BP 136/68; PULSE 106; O2SAT 95; BMI 29.6
== END 2025-07-09 15:59 | disposition home or self-care (01) ==
LOC: HO.HMCFM 14:26
PROVIDERS: PCP Family Medicine; Visit Provider Family Medicine
DX: I10 Essential (primary) hypertension (principal); E11.9 Type 2 diabetes mellitus without complications; R05.9 Cough, unspecified; Q61.02 Congenital multiple renal cysts; Z13.9 Encounter for screening, unspecified

== ENCOUNTER → 2025-07-09 14:25 | Outpatient (BNVA) | payer MEDICARE, BC, SELFPAY | PROVIDERS: PCP Family Medicine; Visit Provider Family Medicine | DX: I10 Essential (primary) hypertension (principal); E11.9 Type 2 diabetes mellitus without complications; R05.9 Cough, unspecified; Q61.02 Congenital multiple renal cysts; Z87.891 Personal history of nicotine dependence | CPT/HCPCS: 83036; 99212 ==

== ENCOUNTER 2025-08-04 09:35 | Outpatient (AMB) | payer MEDICARE, BC, SELFPAY ==
--- NOTE | 2025-08-04 09:37 | A.OFFPC_ITS ---
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 Required: No Allergies No Known Allergies (No Known Allergies*) Allergy (Verified 08/04/25 09:37) Tobacco use date assessed: 08/04/25 Fall risk assessment: 1 Fall in past year Last assessed Fall Risk: 08/04/25 Dental Screening Dental Screen Date: 08/04/25 Did you have a dental visit in the last 12 months?: Yes Did you have a dental problem in the last 6 months where you did not have access to dental care?: No Was dental information given to patient?: Patient has dentist HPI HPI Comments History of Present Illness Details History of Present Illness The patient is a 75-year-old female presenting for suture removal following a fall-related laceration. Laceration due to fall: - Fall in [place] with head laceration a w [place] ago. - Sutures placed on the 7th; ready for r emoval. - Satisfactory healing; no significant n ight discomfort. - No fractures identified; located withi n hairline. - Tdap UTD Eye swelling secondary to trauma: - Post-fall eye swelling initially sever e. - Swelling reduced significantly in rece nt days. - Confirmed head trauma source by ophtha lmologist. - No ongoing vision symptoms. Review of Systems - Head/Eyes: Reports past eye swelling, currently resolving. Denies ongoing vision issues. - Skin: Reports presence of sutures in h airline area, healing noted. - General: Denies any fractures or persi stent pain post-fall. Physical Exam General: Well developed, well nourished, in no acute distress. Appears stated age. Head: Normocephalic, atraumatic. Evidence of recent sutures in the hairline, healing well. 6 sutures removed w/o incident, edges well approx; cleansed, steri strips applied Eyes: Pupils are equal, round and reactive to light and accommodation. Conjunctivae are clear. Vision grossly normal. resolving ecchymosis orbits bilat L>R Lungs: speaking in full sentences Discussion Notes I discussed with the patient the satisfactory healing of the laceration and the successful removal of the six sutures from her scalp. We reviewed that the eye swelling has significantly diminished, likely attributed to the direct impact sustained during the fall. I advised that the SteriStrips applied post-suture removal would likely fall off naturally within 7 to 10 days, and the patient was informed about basic wound care and signs to monitor for possible infection. Return precautions were provided, including increased redness, drainage, or pain. I offered reassurance about the low likelihood of complications but advised vigilance for any changes. Patient was given time to ask questions. All questions were answered to their satisfaction. Assessment and Plan 1. Laceration due to fall - Healed; sutures removed. - Applied SteriStrips; monitor for infec tion. 2. Eye swelling secondary to trauma - Swelling resolved; no further action r equired. Patient Instructions - Let SteriStrips fall off naturally in 7 to 10 days. - Can wash hair normally. - Watch for signs of infection: redness, drainage, or increased pain. - Seek medical attention if symptoms wor sen. Consent Consent was obtained verbally from the patient for the removal of sutures. Ris ks, benefits, and alternatives were discussed, and the patient expressed understanding and agreement with the plan. Patient was informed and verbally consented to the use of an ambient scribe for clinic note documentation during this visit. [facility] Medical History Renal calculi Renal cyst UTI (urinary tract infection) S/p nephrectomy Surgical History S/P cholecystectomy Hx of cataract surgery S/P PATRICIA-BSO Family History Father Stroke Cancer Mother Cancer HTN (hypertension) Social History Housing: House Patient Tobacco Use Status: Former Tobacco user e-Cigarette/Vaping Use: Never Used Second Hand Smoke Exposure: No service: No Current occupational status: retired Current occupational exposures/hazards: No Cognitive needs: No Hearing needs: No Vision needs: No Questionnaire Thrive Questionnaire Date Thrive assessed: 11/10/24 I am a: Patient What is your living situation today?: I have a steady place to live Within the past 12 months, did the food you bought not last and you didn't have the money to get more?: Never true Within the past 12 months, did you worry whether your food would run out before you got money to buy more?: Never true Do you have trouble paying for medicines?: No Do you have trouble getting transportation to medical appointments?: No Do you have trouble paying your heating and electricity bill?: No Do you have trouble taking care of your child, family member or friend?: No Do you have trouble with day-to-day activities such as bathing, preparing meals, shopping, managing finances, etc.?: No Are you currently unemployed and looking for a job?: No Are you interested in more education?: No Please select the resources that you would like help with: None Currently or been in a relationship where the following occur: No concerns reported THRIVE Score: 0 MARYSE-7 AMB Questionnaire MARYSE-7 Date MARYSE - 7 assessed: 11/17/24 Source: Developed by Drs. Laith Green, Noelle Garcia, Eder Martin and colleagues, with an educational raj from [employer]. Physical exam (Primary Care) Vital Signs: Last Vital Signs Temp 97.3 F 08/04/25 09:40 Pulse 103 H 08/04/25 09:40 Resp 12 08/04/25 09:40 BP 132/70 08/04/25 09:40 Pulse Ox 96 08/04/25 09:40 Oxygen Delivery Method Room Air 08/04/25 09:40 BMI result Body Mass Index 29.3 Tobacco/Smoking Status: Tobacco use Status Tobacco use date assessed 08/04/25 08/04/25 09:41 Patient Tobacco Use Status Former Tobacco user 08/04/25 09:41 e-Cigarette/Vaping Use Never Used 08/04/25 09:41 Thrive Assessment: Date of Thrive Assessment Date Thrive assessed 11/10/24 08/04/25 09:41 Currently or been in a relationship where the following occur: No concerns reported Coding Level of Care Code Est Pt Level 3 (94113) Complex EM visit Add On G2211 Diagnoses Visit for suture removal Z48.02 Assessment & Plan Assessment & Plan (1) Visit for suture removal: Code(s): Z48.02 - Encounter for removal of sutures Category: Medical Plan .
[2025-08-04 09:40] VITALS: BP 132/70; PULSE 103; RESP 12; TEMP 36.3; O2SAT 96; BMI 29.3
--- OUTSIDE RECORDS SUMMARY | 2025-08-04 10:58 | XMS_ITS | Patient Health Record ---
Author Organization [facility] Address [address] [place] [address] Care Team Providers Care Certifed Refrigeration Operator Name Role Phone Jose Luis Roe Primary Care Provider UnavailLaith Tejada Unavailable [phone] Reason For Referral No Information Medications Medication SIG (Take, Route, Frequency, Duration) Notes Start Date End Date Status Suprep Bowel Prep 1 kit as directed Oral ly as directed; Duration: 1 dose 04/21/2015 Active Aspirin Adult Low Strength 81 MG 1 tablet Orally Once a day Active NIFEdipine ER 90 MG 1 tablet Orally Once a day Active Simvastatin 20 MG 1 tablet in the even ing Orally Once a day Active Problems Problem Type SNOMED Code ICD Code Onset Dates Problem Status W/U Status Risk Notes Problem Already on aspirin (756440503) Long-term (current) use of aspirin (V58.66) Active confirmed Problem Colon cancer screening (284893513) Colon cancer screening (V76.51) Active confirmed Problem History of polyp of colon (133480424) H/O adenomatous polyp of colon (V12.72) Active confirmed Plan Of Treatment Future Test Test Name Order Date COLONOSCOPY 04/20/2015 Next Appt Details Provider Name:Laith Loya , 10/29/2025 02:00:00 PM, [address], [address], [place], [address], Insurance Providers Payer Name Payer Address Payer Phone Subscriber Number Group Number Insured Name Patient Relationship to Insured Coverage Start Date Coverage End Date MEDICARE OF [place] [address] [place] [address] [id number] GERRI MEDEIROS Self - patient is the insured [facility] [address] [place], [place] [id number] [phone] [id number] GERRI MEDEIROS Self - patient is the insured Medical (General) History Medical History History ICD Code Choledocholithiasis--ERCP's in 2002 and 2007 HTN Hyperlipidemia Denies PA,DM,CVA,Lung disease,renal dise ase Kidney stones 2 tubular adenomas removed during a scre ening colonoscopy in 2004 Surgical History Surgery Date(Month/Year) 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
== END 2025-08-04 10:24 | disposition home or self-care (01) ==
LOC: HO.HMCFM 09:36
PROVIDERS: PCP Family Medicine; Visit Provider Nurse Practitioner Family
DX: Z48.02 Encounter for removal of sutures (principal)

== ENCOUNTER → 2025-08-04 | Outpatient (BNVA) | payer MEDICARE, BC, SELFPAY | PROVIDERS: PCP Family Medicine; Visit Provider Nurse Practitioner Family | DX: S01.91XD Laceration without foreign body of unspecified part of head, subsequent encounter (principal); H57.89 Other specified disorders of eye and adnexa; W19.XXXD Unspecified fall, subsequent encounter; Z48.02 Encounter for removal of sutures | CPT/HCPCS: 99212 ==

== ENCOUNTER 2025-09-02 06:16 | Outpatient (REF) | payer MEDICARE, BC, SELFPAY ==
--- OUTSIDE RECORDS SUMMARY | 2025-09-02 06:20 | XMS_ITS | Patient Health Record ---
Author Organization [facility] Address [address] [place] [address] Care Team Providers Care Juvenile Counselor Name Role Phone Jose Luis Roe Primary Care Provider UnavailLaith Tejada Unavailable [phone] Reason For Referral No Information Medications Medication [...] Status Risk Notes Problem Already on aspirin (251982878) Long-term (current) use of aspirin (V58.66) Active confirmed Problem Colon cancer screening (360379286) Colon cancer screening (V76.51) Active confirmed Problem History of polyp of colon (208084464) H/O adenomatous polyp of colon (V12.72) Active confirmed Plan Of Treatment Future Test Test Name Order Date COLONOSCOPY 04/20/2015 Next Appt Details Provider Name:Laith Loya , 10/29/2025 02:00:00 PM, [address], [address], [place], [address], Insurance Providers Payer Name Payer Address Payer Phone Subscriber Number Group Number Insured Name Patient Relationship to Insured Coverage Start Date Coverage End Date MED[employer]ARE [employer] [address] [place] [address] [phone] [id number] GERRI MEDEIROS Self - patient is the insured [facility] [address] [place], [place] [id number] [phone] [id number] GERRI MEDEIROS Self - patient is the [...]
[2025-09-02 07:34] LABS: Appearance Urine Cloudy; Glucose Urine UA Negative (Negative); PH 5.5 (5.0-9.0); Specific Gravity - Urine 1.015 (1.005-1.025); UMIC TRIGGER UA YES
[2025-09-02 07:37] LABS: Anion Gap 13 (12-20); Blood Urea Nitrogen 19 mg/dL (9-16); Calcium 9.8 mg/dL (8.4-10.2); Carbon Dioxide 27 mmol/L (22-29); Chloride 107 mmol/L (96-108); Estimated Glomerular Filt Rate > 60; Potassium 3.6 mmol/L (3.3-5.1); Sodium 143 mmol/L (135-145)
== END 2025-09-02 06:17 | disposition home or self-care (01) ==
LOC: HO.LAB 06:16
PROVIDERS: PCP Family Medicine; Visit Provider Internal Medicine Nephrology
DX: Z87.442 Personal history of urinary calculi (principal); Z90.5 Acquired absence of kidney
CPT/HCPCS: 36415; 80051; 81001; 82310; 82565; 84520; 87086; 87088; 87186

== ENCOUNTER 2025-09-22 10:18 | Outpatient (AMB) | payer MEDICARE, BC, SELFPAY ==
--- NOTE | 2025-09-22 10:36 | HO.NEPHOV ---
Vital Signs 09/22/25 10:40 Height 5 ft 2 in Weight 160 lb 8 oz BMI 29.4 BP 112/70 Blood Pressure Location Lt brachial Position Sitting Pulse 94 Pulse Source Pulse Oximeter Pulse Oximetry (%) 96 Oxygen Delivery Method Room Air Intake Visit Reasons: -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 While she was in her 30s she underwent nephrectomy for nonfunctioning atrophic right kidney. She has had multiple urinary tract infections, currently has one & is on antibiotics . Her last ultrasonogram report reads as innumerable cyst replace in the left kidney. However a CT scan done a year ago did not reveal numerous cysts but there was 1 cyst. Overall she is doing well. She has no history of flank pain, hematuria, night sweats, pedal edema, passing of grit or gravel in the urine. Her BP is well controlled and her renal function remain at baseline. There were no other complaints at the time of this office visit [facility] Medical History Renal calculi Renal cyst UTI (urinary tract infection) S/p nephrectomy Surgical History S/P cholecystectomy Hx of cataract surgery S/P PATRICIA-BSO Family History Father Stroke Cancer Mother Cancer HTN (hypertension) Social History Housing: House Patient Tobacco Use Status: Former Tobacco user e-Cigarette/Vaping Use: Never Used Second Hand Smoke Exposure: No service: No Current occupational status: retired Current occupational exposures/hazards: No Cognitive needs: No Hearing needs: No Vision needs: No Review of Systems Const All systems reviewed & are unremarkable except as noted in HPI and below Physical Exam Vital Signs: Last Vital Signs Pulse 94 09/22/25 10:40 BP 112/70 09/22/25 10:40 Pulse Ox 96 09/22/25 10:40 Oxygen Delivery Method Room Air 12/03/25 10:40 BMI result Body Mass Index 29.4 Const General: comfortable and no acute distress Orientation/consciousness: patient oriented x3 HEENT Head: Yes normocephalic Mouth: Normal oral and palatal mucosa present Eyes EOM: EOMs intact bilaterally Neck Neck: Yes supple Resp Auscultation: clear to auscultation bilaterally Cardio Jugular venous distension: no JVD Rate: regular rate GI Palpation (GI): Soft to palpation Auscultation: normal bowel sounds General: Yes no CVA tenderness Back/Spine/Pelvis Back: no CVA tenderness Skin General skin exam: no rashes or lesions noted Neuro General: patient oriented x3 and moves all extremities Extrem General: Yes no pedal edema Results Reviewed Nephrology Results: Sodium, (135-145) 143 mmol/L 09/02/25 Potassium, (3.3-5.1) 3.6 mmol/L 09/02/25 Chloride, (96-108) 107 mmol/L 09/02/25 Carbon Dioxide, (22-29) 27 mmol/L 09/02/25 BUN, (9-16) 19 mg/dL H 09/02/25 Creatinine, (0.5-1.4) 0.74 mg/dL 09/02/25 Calcium, (8.4-10.2) 9.8 mg/dL 09/02/25 Urine Protein, (Neg-Trace) Negative mg/dL 09/02/25 Renal US 07/12/23 Assessment & Plan Assessment & Plan (1) Essential hypertension: Code(s): I10 - Essential (primary) hypertension Category: Medical (2) Multiple acquired cysts of kidney: Code(s): N28.1 - Cyst of kidney, acquired Category: Medical (3) Nephrolithiasis: Code(s): N20.0 - Calculus of kidney Category: Medical (4) Acquired complex cyst of kidney: Code(s): N28.1 - Cyst of kidney, acquired Category: Medical (5) Acquired solitary kidney: Code(s): Z90.5 - Acquired absence of kidney Category: Medical Plan She has acquired solitary left kidney with hypertension and diabetes mellitus with essentially normal renal function. CT scan done in 2021 revealed 1 cyst on the left kidney however ultrasonogram done in June 2023 was reported has multiple renal cyst. It is unlikely that she would have developed multiple cyst within 1 year. However the previous ultrasonogram also with reported a questionable septated or complex cyst. She has a follow-up CT scan at next visit to evaluate the renal cyst. Her BP is well controlled and her renal function is at baseline. Will get a 24 hour urine collection for stone studies in the future. She should be on a low-sodium diet and maintain good hydration. I did not make any other medication today. Follow-up lab work ordered. Answered all questions. Follow-up given Orders: Orders Creatinine 7 Months I10 - Essential (primary) hypertension, N20.0 - Calculus of kidney, N28.1 - Cyst of kidney, acquired, Z90.5 - Acquired absence of kidney Blood Urea Nitrogen 7 Months I10 - Essential (primary) hypertension, N20.0 - Calculus of kidney, N28.1 - Cyst of kidney, acquired, Z90.5 - Acquired absence of kidney Electrolytes 7 Months I10 - Essential (primary) hypertension, N20.0 - Calculus of kidney, N28.1 - Cyst of kidney, acquired, Z90.5 - Acquired absence of kidney Calcium 7 Months I10 - Essential (primary) hypertension, N20.0 - Calculus of kidney, N28.1 - Cyst of kidney, acquired, Z90.5 - Acquired absence of kidney Protein Creatinine Ratio, Ur 7 Months I10 - Essential (primary) hypertension, N20.0 - Calculus of kidney, N28.1 - Cyst of kidney, acquired, Z90.5 - Acquired absence of kidney Coding Level of Care Code Est Pt Level 4 (43734) Diagnoses Essential hypertension I10 Multiple acquired cysts of kidney N28.1 Nephrolithiasis N20.0 Acquired complex cyst of kidney N28.1 Acquired solitary kidney Z90.5
[2025-09-22 10:40] VITALS: BP 112/70; PULSE 94; O2SAT 96; BMI 29.4
== END 2025-09-22 11:24 | disposition home or self-care (01) ==
LOC: HO.HKA 10:19
PROVIDERS: PCP Family Medicine; Visit Provider Internal Medicine Nephrology
DX: I10 Essential (primary) hypertension (principal); N28.1 Cyst of kidney, acquired; N20.0 Calculus of kidney; Z90.5 Acquired absence of kidney
CPT/HCPCS: 99214

== ENCOUNTER → 2025-09-22 10:18 | Outpatient (BNVA) | payer MEDICARE, BC, SELFPAY | PROVIDERS: PCP Family Medicine; Visit Provider Internal Medicine Nephrology | DX: I10 Essential (primary) hypertension (principal); N28.1 Cyst of kidney, acquired; N20.0 Calculus of kidney; Z90.5 Acquired absence of kidney; Z87.891 Personal history of nicotine dependence | CPT/HCPCS: 99212 ==

== ENCOUNTER 2025-09-30 15:34 | Outpatient (REF) | payer MEDICARE, BC, SELFPAY ==
--- NOTE | ~2025-09-30 | CT_ITS ---
EXAMINATION: CT ABDOMEN WITHOUT CONTRAST CLINICAL INFORMATION: Acquired absence of kidney. COMPARISON: None available. TECHNIQUE: Contiguous axial thin section helical images of the abdomen were performed without contrast. The data set was reformatted in the coronal and sagittal planes and reviewed on an independent workstation. This CT examination was performed using dose optimization techniques as appropriate, variously including the following: *Automated exposure control *Adjustment of mA and/or kV according to patient size (this includes techniques or standardized protocols for targeted exams where dose is matched to indication/reason for exam; i.e. extremities or head) *Use of iterative reconstruction technique FINDINGS: LUNG BASES: Mild centrilobular emphysematous changes are present in the lung bases. Mild reticular scarring in both lower lobes, in the right middle lobe. Mild bronchiectasis of the small airways without wall thickening. No effusions. There is a 3 mm groundglass nodule in the left costophrenic sulcus, unchanged from 2023 and benign. The heart size is normal. There is a mildly prominent epicardial fat pad. There is no pericardial effusion. The GE junction is normal. LIVER, GALLBLADDER, BILIARY TREE: The liver is normal in unenhanced appearance. No discrete lesion or intrahepatic biliary dilatation. Normal contour without enlargement. There has been a cholecystectomy. Mild prominence of the common bile duct, likely post cholecystectomy reservoir effect. PANCREAS: Mild fatty atrophy. Otherwise normal. SPLEEN: Normal. ADRENAL GLANDS: There is a 2.0 cm lipid rich adenoma in the right adrenal measuring -2 Hounsfield units. This is unchanged from the prior exam. There is a 1.3 cm adenoma in the left adrenal gland, also unchanged from the prior exam. KIDNEYS: The right kidney is congenitally absent. The left kidney is compensatorily hypertrophied. There is a large cyst arising from the mid to upper pole region, bilobed, measuring approximately 7.4 x 7.2 cm in axial plane. There are 2 tiny wall calcifications medially, unchanged. There are subcentimeter parapelvic cysts present. There are no renal calculi. There is no evidence of solid mass. There is no cortical thinning. There is mild nonspecific perirenal stranding. There is no hydronephrosis or hydroureter. BOWEL LOOPS: Normal. Normal appendix visualized. There is descending colonic diverticulosis present. There is a small second segment duodenal diverticulum. LYMPH NODES: There is no abnormal lymphadenopathy. VASCULAR: There is heavy calcification of the aorta and iliac arteries and splenic artery, without evidence of aneurysm. OSSEOUS STRUCTURES: There is no suspicious lytic or blastic bone lesion. There are mild degenerative changes of the spine, most notable at L4-S1. CT/CT abdomen wo IV con IMPRESSION: 1. No acute findings in the abdomen and imaged upper pelvis. 2. Absent right kidney. Left kidney demonstrating stable Bosniak 2 cyst, smaller simple cysts, but no other abnormality. 3. There are bilateral small stable adrenal adenomas. 4. Additional ancillary findings as discussed in the body of the report. Electronically signed by: Christiano Rao MD 09/30/2025 04:19 PM DYLAN
--- OUTSIDE RECORDS SUMMARY | 2025-09-30 23:03 | XMS_ITS | Patient Health Record ---
Author Organization [facility] Address [address] [place] [address] Care Team Providers Care Flower Grower Name Role Phone Jose Luis Roe Primary Care Provider Laith Harris [phone] Reason For Referral No Information Medications Medication SIG (Take, Route, Frequency, Duration) Notes Start Date End Date Status Suprep Bowel Prep 1 kit Solution as directed Orally as directed; Duration: 1 dose 04/21/2015 Active Aspirin Adult Low Strength 81 MG Tablet Delayed Release 1 tablet Orally Once a day Active NIFEdipine ER 90 MG Tablet Extended Release 24 Hour 1 tablet Orally Once a day Active Simvastatin 20 MG Tablet 1 tablet in the evening Orally Once a day Active Social History Social History Additional Details Category Social Info Options Details Miscellaneous: Marital status: 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 [employer] Section Notes: Nonsmoker; no sig alcohol Problems Problem Type SNOMED Code ICD Code Onset Dates Problem Status W/U Status Risk Notes Problem Already on aspirin (175755759) Long-term (current) use of aspirin (V58.66) Active confirmed Problem Colon cancer screening (307350217) Colon cancer screening (V76.51) Active confirmed Problem History of polyp of colon (543373680) H/O adenomatous polyp of colon (V12.72) Active confirmed Plan Of Treatment Future Test Test Name Order Date COLONOSCOPY 04/20/2015 Next Appt Details Provider Name:Laith Loya , 10/29/2025 02:00:00 PM, [address], [address], [place], [address], Insurance Providers Payer Name Payer Address Payer Phone Subscriber Number Group Number Insured Name Patient Relationship to Insured Coverage Start Date Coverage End Date MEDICARE OF [place] [address] [place] [address] [id number] GERRI MEDEIROS Self - patient is the insured [facility] [address] [place], [place] [id number] [phone] [id number] GERRI MEDEIROS Self - patient is the insured Medical (General) History Medical History History ICD Code Choledocholithiasis--ERCP's in 2002 and 2007 HTN Hyperlipidemia Denies VA,DM,CVA,Lung disease,renal dise ase Kidney stones 2 tubular adenomas removed during a scre ening colonoscopy in 2004 Surgical History Surgery Date(Month/Year) 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
== END 2025-09-30 15:35 | disposition home or self-care (01) ==
LOC: HO.CT 15:34
PROVIDERS: PCP Family Medicine; Visit Provider Urology
DX: Q61.02 Congenital multiple renal cysts (principal); Z90.5 Acquired absence of kidney
CPT/HCPCS: 74150

== ENCOUNTER → 2025-09-30 15:36 | Outpatient (BNV) | payer MEDICARE, BC, SELFPAY | PROVIDERS: PCP Family Medicine; Visit Provider Radiology Diagnostic Radiology | DX: D35.01 Benign neoplasm of right adrenal gland (principal); D35.02 Benign neoplasm of left adrenal gland; Z90.5 Acquired absence of kidney | CPT/HCPCS: 74150 ==

== ENCOUNTER 2025-10-07 08:38 | Outpatient (AMB) | payer MEDICARE, BC, SELFPAY ==
--- NOTE | 2025-10-07 08:39 | A.OFFVIS_ITS ---
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 Concerns of a lump in vaginal area, occasional discomfort when sitting. Flake Cutter Operator Required: No Collection Officer: Collection Officer offered & declined Accompanied by: Self / Same As Patient Allergies No Known Allergies (No Known Allergies*) Allergy (Verified 10/07/25 08:45) Medication List - Last Reconciled 10/07/25 by Sammi Parrish CNM albuterol sulfate 90 mcg/actuation 2 puffs inhalation Q4-6H PRN atorvastatin 40 mg PO DAILY 90 days fluticasone furoate-vilanterol 200-25 mcg/dose 1 ea inhalation DAILY hydrochlorothiazide 12.5 mg PO DAILY ipratropium bromide 2 sprays intranasal TID-QID PRN losartan 50 mg PO DAILY 90 days metformin 500 mg PO DAILY nifedipine ER 30 mg PO DAILY 90 days nifedipine ER 90 mg PO DAILY 3 months omeprazole 40 mg (2 x 20 mg) PO DAILY sulfamethoxazole-trimethoprim 800-160 mg (Bactrim DS) 1 tab PO Q12H 7 days Is last menstrual period known: No Post menopausal: Yes Patient : No HPI Comments Details: Pt is informed of QIAN VICTOR HUGO ambient listening for clinical documentation and agrees to its use during the visit The patient is a 75 year old female presenting for an annual gynecological examination and evaluation of a vaginal mass. She is new patient here to establish restorative rehab aide care. She first noticed a hard, painless palpable mass in her vagina about 3-4 months ago while wiping. She reports no pain associated with the mass, including with intercourse. The patient has a history of loose bowel syndrome and recurrent urinary tract infections, for which she is currently finishing a course of antibiotics. Her medical history is also significant for hypertension, for which she takes three medications, hyperlipidemia, and type 2 diabetes managed with metformin. Her surgical history includes a hysterectomy for fibroids 30+ years ago where her ovaries may have also been removed, cholecystectomy, cataract surgery, and a nephrectomy. She also had a benign tumor removed from her nose with skin grafting. Regarding health maintenance, Last mammo February 2025 birads 1 Colonoscopy: UTD, q 10 yrs, next alanna in 10/2025 Bone Density 2023: Osteopenia Exercise: She engages in regular exercise, including attending a class for active older adults three times a week and walking her dog for about an hour and a half daily The patient is retired and lives with her of 50 Yrs, denies any issues of DV [facility] Medical History Renal calculi Renal cyst UTI (urinary tract infection) S/p nephrectomy Surgical History (Updated 10/07/25 @ 09:19 by Sammi Parrish CNM) Hx of hysterectomy S/P cholecystectomy Hx of cataract surgery S/P PATRICIA-BSO Family History Father Stroke Cancer Mother Cancer HTN (hypertension) Social History (Updated 10/07/25 @ 09:17 by Sammi Parrish CNM) Household Members: Spouse Household Members Other:: 50 yrs, neg DV Housing: House Patient Tobacco Use Status: Former Tobacco user e-Cigarette/Vaping Use: Never Used Second Hand Smoke Exposure: No service: No Current occupational status: retired Current occupational exposures/hazards: No Cognitive needs: No Hearing needs: No Vision needs: No Female Reproductive History Menstrual Menopause type: surgical Total pregnancies: 2 Full term: 2 History of abnormal pap smear: Yes Date of Mammogram: 03/10/25 (bi rad 1) Review of Systems Const Reports no additional complaints Eyes Reports no additional complaints ENT Reports no additional complaints Card Reports no additional complaints Resp Reports no additional complaints GI Reports no additional complaints Reports as per [facility] Skin/Breast Reports system reviewed and no additional complaints, except as documented Physical Exam Vital Signs: Last Vital Signs BP 120/72 10/07/25 08:48 BMI result Body Mass Index 28.9 Const General: cooperative, healthy appearing and no acute distress Orientation/consciousness: patient oriented x3 HEENT Head: Yes normocephalic Neck Neck: Yes normal visual inspection Chest Breast/axilla inspection: normal inspection of the breasts and normal inspection of the axillae Breast/axilla palpation: normal palpation of the breasts, normal palpation of the axillae and no axillary lymphadenopathy Resp Effort & Inspection: normal respiratory effort and able to speak in complete sentences GI Inspection: No distended Palpation (GI): Soft to palpation and nontender Percussion: Yes normal to percussion Rectal Exam - Female: visual inspection normal ([ ]) Other: on spec exam on the patients left vaginal wall, appears to be a vaginal skin tag or polyp- color is flesh healthy tissue appearance, not necrotic or hemorrhagic , and on bimanual exam able to feel thin posterior septum External Female Exam: normal external appearance and normal appearance of the urethra Speculum Exam - Cervix: Cervix absent (Vaginal cuff w/o lesions) Bimanual exam- vagina & uterus: uterus absent Bimanual Exam- Adnexa, other: rectocele (consistent with pelvic floor r elaxation) Skin General skin exam: no rashes or lesions noted (overall well-appearing,scattered hemangioma) Neuro General: patient oriented x3 Extrem General: Yes normal to inspection Psych Affect: normal affect Attitude: cooperative Assessment & Plan Assessment & Plan (1) Well woman exam with routine gynecological exam: Code(s): Z01.419 - Encounter for gynecological examination (general) (routine) without abnormal findings Plan: During the visit, the following areas of concern were addressed: Regular exercise Healthy lifestyle Domestic violence Menopausal/heriberto-menopausal signs and symptoms, including nonprescription s trategies for management Health Maintenance and Screening -Reviewed ASCCP guidelines for Paps and yearly (bi-yearly ) pelvic exam. -Reviewed and encouraged diet and exercise for cardiovascular and bone health -Reviewed breast self-awareness. Importance of yearly mammogram after age 40 (earlier if first-degree relative with breast cancer at a younger age ) Discuss use of 3 times per week weight-bearing exercise, vitamin D3 and servings of dietary calcium daily for bone health. -continue to follow with PCP for general medical care, immunizations. Screening strategies for colon cancer after age 50. Discussion of Kegel exercises for urinary incontinence Family and personal history of cancer reviewed. Genetic screening - not indcated The patient has BMI: 28 Continue approaches towards weight loss are discussed including burning more calories than one takes in by frequent, small meals, portion control, avoiding eating before bedtime, regular exercise with an emphasis on duration rather than intensity, strength training exercise. RTO one- two year or sooner prjamal Parrish CNM Note about provider documentation : If you or the patient named in this chart and are reviewing your medical notes, please note that medical documentation is often written with abbreviations and medical terminology, and directed for other providers who may be involved in your care as well. Documentation is critical to record what has happened, what tests were ordered, and so they are interpreted with the resulting diagnoses. These notes have been made available for patient review but not specifically written for the patient. Important health information is always given to my patients in clinical instructions. Please review your after visit summary and our contact our clinical staff if you have any questions. (2) Screening breast examination: Code(s): Z12.39 - Encounter for other screening for malignant neoplasm of breast (3) Post menopausal syndrome: Code(s): N95.1 - Menopausal and female climacteric states Plan 1. Vaginal Mass and Pelvic Organ Prolapse The patient presents with a self-palpated vaginal mass. Examination revealed a small lesion consistent with a skin tag or polyp, as well as a rectocele. The lesion appears benign, with no signs of necrosis or hemorrhage. A referral will be placed to Dr. Cartwright for further evaluation, with the possibility of excision and biopsy if indicated. The patient will schedule this appointment at the front desk coordinator for within the next month. 2. Osteopenia The patient has a known diagnosis of osteopenia and a history of kidney stones. She was counseled on the importance of Vitamin D3 for calcium absorption and advised to check if her multivitamin contains it. She continues to engage in beneficial weight-bearing exercises. 3. Health Maintenance The patient is up-to-date with her mammogram and has a colonoscopy scheduled. She will follow up for routine IT INFRASTRUCTURE ENGINEER care in two years, or sooner if needed. 4. Dry Skin and Nasal Dryness The patient complains of dry skin and nasal passages. Advised using a cool-mist humidifier to provide relief. Continue with daily skin moisturizers Coding Level of Care Code New Pt Prev Care >65yr (33108) Diagnoses Well woman exam with routine gynecological exam Z01.419 Screening breast examination Z12.39 Post menopausal syndrome N95.1
[2025-10-07 08:48] VITALS: BP 120/72; BMI 28.9
--- OUTSIDE RECORDS SUMMARY | 2025-10-07 09:06 | XMS_ITS | Patient Health Record ---
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 [employer] Section Notes: Nonsmoker; no sig alcohol Problems Problem Type SNOMED Code ICD Code Onset Dates Problem Status W/U Status Risk Notes Problem Already on aspirin (000786280) Long-term (current) use of aspirin (V58.66) Active confirmed Problem Colon cancer screening (736419784) Colon cancer screening (V76.51) Active confirmed Problem History of polyp of colon (617783916) H/O adenomatous polyp of colon (V12.72) Active confirmed Plan Of Treatment Future Test Test Name Order Date COLONOSCOPY 04/20/2015 Next Appt Details Provider Name:Laith Loya , 10/29/2025 02:00:00 PM, [address], [address], [place], [address], Insurance Providers Payer Name Payer Address Payer Phone Subscriber Number Group Number Insured Name Patient Relationship to Insured Coverage Start Date Coverage End Date MEDICARE OF [place] [address] [place] [address] [id number] GERRI MEDEIROS Self - patient is the insured [facility] [address] [place], [place] [id number] [phone] [id number] GERRI MEDEIROS Self - patient is the [...]
== END 2025-10-07 10:21 | disposition home or self-care (01) ==
LOC: HO.HWSM 08:38
PROVIDERS: PCP Family Medicine; Visit Provider Advanced Practice Midwife
DX: Z01.419 Encounter for gynecological examination (general) (routine) without abnormal findings (principal); Z12.39 Encounter for other screening for malignant neoplasm of breast; N95.1 Menopausal and female climacteric states
CPT/HCPCS: G0101

== ENCOUNTER → 2025-10-07 08:38 | Outpatient (BNVA) | payer MEDICARE, BC, SELFPAY | PROVIDERS: PCP Family Medicine; Visit Provider Advanced Practice Midwife | DX: Z01.419 Encounter for gynecological examination (general) (routine) without abnormal findings (principal); N95.1 Menopausal and female climacteric states; Z12.39 Encounter for other screening for malignant neoplasm of breast; Z90.710 Acquired absence of both cervix and uterus | CPT/HCPCS: G0101 ==